=== PATIENT | male | born 1970 | race Caucasian/White ===

== ENCOUNTER 2017-12-12 19:10 | Inpatient (IN) | END 2017-12-27 11:35 | disposition home or self-care (01) | DRG 280 ==

== ENCOUNTER 2018-01-10 14:08 | Outpatient (CLI) | END 2018-01-10 15:48 | disposition home or self-care (01) ==

== ENCOUNTER 2018-01-24 13:59 | Outpatient (CLI) | END 2018-01-24 14:50 | disposition home or self-care (01) ==

== ENCOUNTER 2018-02-11 19:33 | Inpatient (IN) | END 2018-02-13 17:25 | disposition home or self-care (01) | DRG 291 ==

== ENCOUNTER 2018-02-27 22:31 | Inpatient (IN) | END 2018-03-06 17:32 | disposition home or self-care (01) | DRG 871 ==

== ENCOUNTER 2018-03-11 23:56 | Observation (INO) | END 2018-03-14 00:50 | disposition home or self-care (01) ==

== ENCOUNTER 2018-07-24 10:54 | Inpatient (IN) | END 2018-07-26 16:45 | disposition home or self-care (01) | DRG 314 ==

== ENCOUNTER 2018-09-18 06:36 | Day surgery (SDC) | payer OTHER ==
[~2018-09-18 06:36] MED LIST: ALLO100T PO; AMIT25TA9 PO; ASPI-817 PO; CARV6.2579 PO; EPO10ESRD SC; GABA100C14 PO; LANT3I SC; LISI10TA2 PO; OMEP40CA6 PO; PRAV20TA63 PO; TRAM50TA PO
[2018-09-18] MEDS ORDERED: PRAV20TA63 PO (07:38)
[2018-09-18] MEDS ORDERED: GABA100C14 PO (07:38)
[2018-09-18] MEDS ORDERED: CARV6.2579 PO (07:39)
[2018-09-18] MEDS ORDERED: CARSR60 PO (07:39)
[2018-09-18] MEDS ORDERED: ASPI81TA52 PO (07:40)
[2018-09-18] MEDS ORDERED: OMEP40CA6 PO (07:40)
[2018-09-18] MEDS ORDERED: ALLO100T PO (07:40)
[2018-09-18] MEDS ORDERED: INSU100I33 SC (07:41)
[2018-09-18] MEDS ORDERED: AMIT50TA3 PO (07:41)
[2018-09-18] MEDS ORDERED: INSU100I12 SQ (07:42)
[2018-09-18] MEDS ORDERED: TRAM50TA PO (07:43)
--- NOTE | 2018-09-18 07:44 | HPN ---
Date/Time of Note Date/Time of Note DATE: 09/18/18 TIME: 07:44 Interval H&P Admission Note Pt. seen H&P reviewed: No system changes MARK HOROWITZ MD Sep 18, 2018 07:44
[2018-09-18] MEDS ORDERED: INSULIN REGULAR, HUMAN 100 UNIT/1 ML 3ML VIAL SC ONE (08:30)
--- NOTE | 2018-09-19 19:59 | RADRPT ---
Vent Rate: 89 bpm RR Interval: [address] Interval: 170 msec QRS Duration: 112 msec QT Interval: 368 msec QTC Interval: 447 msec P-R-T [place]: 63 - 67 - 81 degrees Normal sinus rhythm Normal ECG Electronically Signed By: Geraldo Jaffe [id number]
== END 2018-09-18 09:30 | disposition home or self-care (01) ==
LOC: SDS 06:36
PROVIDERS: ATTEND Surgery
DX: I12.0 Hypertensive chronic kidney disease with stage 5 chronic kidney disease or end stage renal disease (principal); N18.6 End stage renal disease; E11.9 Type 2 diabetes mellitus without complications; Z53.8 Procedure and treatment not carried out for other reasons
CPT/HCPCS: 71045; 80053; 82962; 85025; 85610; 85730; 93005; J1815

== ENCOUNTER 2018-09-18 09:13 | Inpatient (IN) | payer OTHER ==
[2018-09-18] VITALS (12 sets, daily range): BP systolic 103–189; BP diastolic 76–118; PULSE 101–118; RESP 20; Ht 167.6 cm; Wt 73.0 kg
[~2018-09-18] VITALS: Ht 167.6 cm; Wt 73.0 kg
[2018-09-18] MEDS: GABAPENTIN 100 MG CAP PO SCH (01:30)
[2018-09-18] MEDS: AMITRIPTYLINE 50 MG TAB PO SCH (01:30)
[~2018-09-18 09:13] MED LIST changes: +AMIT50TA3 PO; +ASPI81TA52 PO; +CARSR60 PO; +INSU100I12 SQ; +INSU100I33 SC
[2018-09-18] MEDS ORDERED: SOD CHLORIDE 0.9% 730 ML IV ONE (10:00)
[2018-09-18] MEDS ORDERED: INSULIN LISPRO 100 UNIT/ML VIAL SC ONE (11:00)
[2018-09-18] MEDS ORDERED: ACETAMINOPHEN 325 MG TAB PO PRN (12:00)
[2018-09-18] MEDS ORDERED: ONDANSETRON 4 MG INJ IV PRN (12:00)
--- NOTE | 2018-09-18 14:23 | ERD ---
ER Documentation Chief Complaint Chief Complaint FROM SAME DAY SURGERY FOR HIGH BLOOD GLUCOSE HPI Patient is a 47-year-old male with hypertension and diabetes and dialysis who presents for high blood sugar. The patient was at same-day surgery for an AV fistula placement today but was found to have a sugar of greater than 600 to the procedure was not done. He was sent to the ER. He denies symptoms. He was told not to take his insulin today because of the procedure but he says that he did take it yesterday. He gets dialysis Sunday, Sunday, and Fridays and he had dialysis on Sunday. Upon review of old medical records the patient has multiple visits with admissions. ROS All systems reviewed and are negative except as per history of present illness. Medications Home Meds Reported Medications Tramadol Hcl* (Ultram*) 50 Mg Tablet, 50 MG PO Q6H PRN for PAIN, TAB 09/18/18 Insulin Lispro (Humalog Kwikpen U-100) 100 Unit/1 Ml Insuln.pen, 8 UNIT SQ AC B, EA 09/18/18 Insulin Glargine,Hum.rec.anlog (Basaglar Kwikpen U-100) 100 Unit/1 Ml Insuln.pen, 60 UNIT SC QHS, EA 09/18/18 Amitriptyline Hcl* (Amitriptyline Hcl*) 50 Mg Tablet, 50 MG PO QHS, #30 TAB 09/18/18 Omeprazole* (Omeprazole*) 40 Mg Capsule., 40 MG PO DAILY, #30 CAP 09/18/18 Allopurinol* (Allopurinol*) 100 Mg Tablet, 100 MG PO DAILY, TAB 09/18/18 Aspirin (Low Dose Aspirin) 81 Mg Tablet., 81 MG PO DAILY, #30 TAB 09/18/18 Carvedilol* (Carvedilol*) 6.25 Mg Tablet, 6.25 MG PO BID, #60 TAB 09/18/18 Diltiazem Hcl* (Cardizem SR*) 60 Mg Capsr, 60 MG PO Q12, #60 CAP 09/18/18 Pravastatin Sodium* (Pravastatin Sodium*) 20 Mg Tablet, 20 MG PO HS, TAB 09/18/18 Gabapentin* (Gabapentin*) 100 Mg Capsule, 100 MG PO TID, #90 CAP 09/18/18 Discontinued Reported Medications Allopurinol* (Allopurinol*) 100 Mg Tablet, 100 MG PO DAILY, TAB 12/12/17 Amitriptyline Hcl* (Amitriptyline Hcl*) 25 Mg Tablet, 50 MG PO QHS, #30 TAB 12/12/17 Omeprazole* (Omeprazole*) 40 Mg Capsule.dr, 40 MG PO DAILY, #30 CAP 12/12/17 Aspirin* (Aspirin* EC) 81 Mg Tablet.dr, 81 MG PO DAILY, TAB 12/12/17 Discontinued Scripts Insulin Glargine* (Lantus*) 100 Unit/Ml Soln, 22 UNIT SC DAILY for 30 Days, #1 VIAL Prov:GELACIOSHAYLA 07/26/18 Epoetin Aidan (Epogen) 10,000 Units/Ml Soln, 40995 UNITS SC MoWeFr@17 for 30 Days Prov:CALISTA FERRIS 03/13/18 Carvedilol* (Carvedilol*) 6.25 Mg Tablet, 6.25 MG PO BID for 30 Days, #60 TAB Prov:CALISTA FERRIS 03/13/18 Lisinopril* (Lisinopril*) 10 Mg Tablet, 10 MG PO DAILY for 30 Days, #30 TAB Prov:GAUDENCIO PORRAS MD 03/06/18 Tramadol Hcl* (Ultram*) 50 Mg Tablet, 50 MG PO Q6 PRN for PAIN, #14 TAB Prov:CALISTA FERRIS 02/13/18 Gabapentin* (Gabapentin*) 100 Mg Capsule, 100 MG PO BID, #90 CAP Prov:CALISTA FRERIS 02/13/18 Pravastatin Sodium* (Pravastatin Sodium*) 20 Mg Tablet, 20 MG PO HS for 30 Days, TAB Prov:HARRY ARSHAD MD 12/26/17 Allergies Allergies: Coded Allergies: No Known Allergy (Unverified , 09/18/18) PMhx/Soc History of Surgery: Yes (HEMODIALYSIS CATHETER, TENDON SX.) Anesthesia Reaction: No Hx 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 Disorder: No Hx Respiratory Disorders: No Hx Cardiac Disorders: Yes (HIGH CHOLESTEROL , HTN ) Hx Psychiatric Problems: No Hx Miscellaneous Medical Probl: Yes (DM , GOUT ) Hx Alcohol Use: No Hx Substance Use: No Hx Tobacco Use: No Smoking Status: Never smoker FmHx Family History: diabetes Physical Exam Vitals Vital Signs Date Temp Pulse Resp B/P (MAP) Pulse Ox O2 O2 Flow FiO2 Time Delivery Rate 09/18/18 98.1 92 17 164/96 98 Room Air 12:00 (118) 09/18/18 95 18 152/95 96 Room Air 10:20 (114) 09/18/18 98.1 92 18 180/106 99 09:21 (130) Physical Exam Const: No acute distress Head: Atraumatic Eyes: Normal Conjunctiva ENT: Normal External Ears, Nose and Mouth. Neck: Full range of motion. No meningismus. Resp: Clear to auscultation bilaterally Cardio: Regular rate and rhythm, no murmurs Abd: Soft, non tender, non distended. Normal bowel sounds Skin: No petechiae or rashes Back: No midline or flank tenderness Ext: No cyanosis, or edema Neur: Awake and alert Psych: Normal Mood and Affect Result Diagram: 09/18/18 1005 09/18/18 1004 Results 24 hrs Laboratory Tests Test 09/18/18 09:50 09/18/18 09:53 09/18/18 10:04 09/18/18 10:05 Bedside Glucose 414 mg/dL Blood Gas Blood venous Specimen Source Arterial Blood 09/18/2018 10:10: Date Drawn 52 AM Arterial Blood VENOUS LINE Gas Puncture Site Bradley Test N/A Venous Blood pH 7.336 Venous Blood 49.8 mmHG pCO2 (Temp Corrected) Venous Blood pO2 44.7 mmHG (Temp Corrected) Venous Blood 26.0 mmol/L HCO3 Venous Blood 81.6 mmHG Oxygen Saturation Venous Blood -0.4 mmol/L Base Excess Venous Blood 13.8 g/dl Total Hemoglobin Venous Blood 80.9 % Oxyhemoglobin Venous Blood 0.1 % Methemoglobin Carboxyhemoglobi 0.7 % n Blood Gas 37.0 C Temperature Blood Gas ROOM AIR Modality FiO2 21.0 % Blood Gas M.D. Notified Whom Blood Gas 09/18/2018 10:18: Notified Time 00 AM Sodium Level 133 mmol/L Potassium Level 4.0 mmol/L Chloride Level 98 mmol/L Carbon Dioxide 26 mmol/L Level Anion Gap 9 Blood Urea 43 mg/dl Nitrogen Creatinine 4.72 mg/dl Est Glomerular 13 mL/min Filtrat Rate mL/min Glucose Level 453 mg/dl Calcium Level 9.5 mg/dl Phosphorus Level 4.9 mg/dl Magnesium Level 1.9 mg/dl White Blood 8.5 10^3/ul Count Red Blood Count 3.95 10^6/ul Hemoglobin 12.4 g/dl Hematocrit 37.3 % Mean Corpuscular 94.4 fl Volume Mean Corpuscular 31.4 pg Hemoglobin Mean Corpuscular 33.2 g/dl Hemoglobin Ellen nt Red Cell 13.1 % Distribution Width Platelet Count 294 10^3/UL Mean Platelet 11.5 fl Volume Immature 0.400 % Granulocytes % Neutrophils % 68.5 % Lymphocytes % 18.0 % Monocytes % 5.9 % Eosinophils % 6.5 % Basophils % 0.7 % Nucleated Red 0.0 /100WBC Blood Cells % Immature 0.030 10^3/ul Granulocytes # Neutrophils # 5.9 10^3/ul Lymphocytes # 1.5 10^3/ul Monocytes # 0.5 10^3/ul Eosinophils # 0.6 10^3/ul Basophils # 0.1 10^3/ul Nucleated Red 0.0 10^3/ul Blood Cells # Test 09/18/18 11:29 09/18/18 14:12 Bedside Glucose 242 mg/dL 102 mg/dL Current Medications Medications Dose Sig/Estrada Start Time Status Last (Trade) Ordered Route PRN Stop Time Admin Dose Reason Admin Sodium 730 ml @ ONCE ONCE 09/18/18 DC 09/18/18 Chloride 730 mls/hr IV 10:00 10:09 09/18/18 10:59 Insulin 20 unit ONCE ONCE 09/18/18 DC Human SC 11:00 Lispro 09/18/18 11:31 (Humalog) Ondansetron 4 mg BRIDGE ORDER 09/18/18 HCl (Zofran PRN IV 12:00 Inj) vomiting 09/19/18 11:59 650 mg ER BRIDGE 09/18/18 Acetaminophen PRN PO pain 12:00 (Tylenol 09/19/18 11:59 Tab) Procedures/MDM Patient is a 47-year-old male who presents with hyperglycemia. There is no signs of diabetic ketoacidosis at this time. The patient was given a fluid bolus. The patient has had improved sugar in the emergency department. He will need admission so that he can get his AV fistula placed. I spoke with Dr. Arshad who will admit the patient to a medical surgical bed. Departure Diagnosis: Primary Impression: Hyperglycemia Condition: YUSEF Mills MD Sep 18, 2018 14:23
[2018-09-18] MEDS ORDERED: traMADol 50 MG TAB PO PRN (15:00)
--- NOTE | 2018-09-18 15:02 | HP ---
GELACIOSHAYLA 09/18/18 1502: Date/Time of Note Date/Time of Note DATE: 09/18/18 TIME: 14:55 Assessment/Plan VTE Prophylaxis Pharmacological prophylaxis: NA/contraindicated Pharm contraindication: surgical contra Assessment/Plan Hospital Course 1. Diabetes mellitus, uncontrolled. BS was around 500. then in ER was stabilized and down to 260s. 2. Hypochromic anemia 3. Hypertension. 4. End-stage renal disease on hemodialysis Sunday, Sunday, Sunday. 5. Nonischemic cardiomyopathy. 6. History of gout. 7. Dyslipidemia. 8. Overweight 9. Hx of diabetic nephropathy and neuropathy. 10. right I toe nonhealing wound Assessment/Plan -spoke to [facility] staff, pt is scheduled on Fr around [address] Pina -renal diet -hypoglycemic control -medsurg -c/w HD PermCath placement, one today - The patient will be resumed on blood pressure medicines and insulin. -The patient was explained about compliance. -DVT prophylaxis SCD bilaterally -GI prophylaxis Protonix -Arterial US Result Diagram: 09/18/18 1005 09/18/18 1004 Results 24hrs Laboratory Tests Test 09/18/18 09:50 09/18/18 09:53 09/18/18 10:04 09/18/18 10:05 Bedside Glucose 414 *H Blood Gas Blood venous Specimen Source Arterial Blood 09/18/2018 10:10: Date Drawn 52 AM Arterial Blood VENOUS LINE Gas Puncture Site Bradley Test N/A Venous Blood pH 7.336 Venous Blood pCO2 49.8 H (Temp Corrected) Venous Blood pO2 44.7 H (Temp Corrected) Venous Blood HCO3 26.0 Venous Blood 81.6 H Oxygen Saturation Venous Blood Base -0.4 Excess Venous Blood 13.8 Total Hemoglobin Venous Blood 80.9 Oxyhemoglobin Venous Blood 0.1 Methemoglobin Carboxyhemoglobin 0.7 Blood Gas 37.0 Temperature Blood Gas ROOM AIR Modality FiO2 21.0 Blood Gas M.D. Notified Whom Blood Gas 09/18/2018 10:18: Notified Time 00 AM Sodium Level 133 L Potassium Level 4.0 Chloride Level 98 Carbon Dioxide 26 Level Anion Gap 9 Blood Urea 43 H Nitrogen Creatinine 4.72 H Est Glomerular 13 L Filtrat Rate mL/min Glucose Level 453 #*H Calcium Level 9.5 Phosphorus Level 4.9 Magnesium Level 1.9 White Blood Count 8.5 Red Blood Count 3.95 L Hemoglobin 12.4 L Hematocrit 37.3 L Mean Corpuscular 94.4 Volume Mean Corpuscular 31.4 Hemoglobin Mean Corpuscular 33.2 Hemoglobin Concen t Red Cell 13.1 Distribution Width Platelet Count 294 Mean Platelet 11.5 H Volume Immature 0.400 Granulocytes % Neutrophils % 68.5 Lymphocytes % 18.0 Monocytes % 5.9 Eosinophils % 6.5 Basophils % 0.7 Nucleated Red 0.0 Blood Cells % Immature 0.030 Granulocytes # Neutrophils # 5.9 Lymphocytes # 1.5 Monocytes # 0.5 Eosinophils # 0.6 H Basophils # 0.1 Nucleated Red 0.0 Blood Cells # Test 09/18/18 11:29 09/18/18 14:12 09/18/18 14:24 Bedside Glucose 242 H 102 Urine Color STRAW Urine Clarity CLEAR Urine pH 7.0 Urine Specific 1.015 [place] Urine Ketones NEGATIVE Urine Nitrite NEGATIVE Urine Bilirubin NEGATIVE Urine NEGATIVE Urobilinogen Urine Leukocyte NEGATIVE Esterase Urine Microscopic 0 RBC Urine Microscopic 0 WBC Urine Hemoglobin NEGATIVE Urine Glucose 3+ H Urine Total 3+ H Protein HPI/ROS Admit Date/Time Admit Date/Time Sep 18, 2018 at 11:59 Hx of Present Illness This is a 47-year-old male with a past medical history of end-stage renal disease on hemodialysis that started on 11/2017, diabetes, high blood pressure, noncompliance, cardiomyopathy, diastolic dysfunction, EF of 20%, nonobstructive coronary artery disease, who was sent to short stay for fistula creation.Prior the procedure pt has elevated BS to 500 and was sent to ER for evaluation. The patient was admitted for further management. PAST SURGICAL HISTORY: PermCath placement. ROS Musculoskeletal: other (unhealing wound) PMH/Family/Social Past Medical History Medical History: diabetes, hypertension, renal disease Medications Current Medications Ondansetron HCl (Zofran Inj) 4 mg BRIDGE ORDER PRN IV vomiting; Start 09/18/18 at 12:00; Stop 09/19/18 at 11:59 Acetaminophen (Tylenol Tab) 650 mg ER BRIDGE PRN PO pain; Start 09/18/18 at 12:00; Stop 09/19/18 at 11:59 Coded Allergies: No Known Allergy (Unverified , 09/18/18) Past Surgical History Past Surgical Hx: appendectomy, endoscopy, other Family History Significant Family History: no pertinent family hx Social History Alcohol Use: none Smoking Status: Current some day smoker Drug Use: other (former IV drug user) Exam/Review of Systems Vital Signs Vitals Vital Signs Date Temp Pulse Resp B/P (MAP) Pulse Ox O2 O2 Flow FiO2 Time Delivery Rate 09/18/18 98.1 90 18 154/68 98 Room Air 14:27 (96) Exam Exam right chest Permcath Constitutional: alert, oriented Neck: supple Respiratory: clear to auscultation Cardiovascular: regular rate and rhythm Gastrointestinal: soft Musculoskeletal: other (right foot 1 toe unhealing wound) HARRY ARSHAD MD 09/19/18 0640: Assessment/Plan Assessment/Plan Assessment/Plan LILIANA ND EXMAINED WITH METAL FABRICATOR HELPER PT SAID WAS TOLD TO HOLD LANTUS DAY OF SURGERY FS>500 , SURGERY CANCELLED HD Result Diagram: 09/18/18 1005 09/18/18 1004 PMH/Family/Social Past Medical History Coded Allergies: No Known Allergy (Unverified , 09/18/18) SHAYLA BRIZUELA Sep 18, 2018 15:02 HARRY ARSHAD MD Sep 19, 2018 06:40
[2018-09-18] MEDS ORDERED: DEXTROSE 50% 50 ML SYRINGE IV PRN (16:00)
[2018-09-18] MEDS ORDERED: GLUCAGON 1 MG INJ IM PRN (16:00)
[2018-09-18] MEDS ORDERED: GLUCOSE GEL 15 GRAM TUBE BUCCAL PRN (16:00)
[2018-09-18] MEDS ORDERED: GLUCOSE GEL 15 GRAM TUBE PO PRN ×2 (16:00)
[2018-09-18] MEDS ORDERED: HEPARIN 1000 UNITS/ML 10 ML INJ CATHETER SCH ×2 (17:00→22:30)
[2018-09-18] MEDS ORDERED: INSULIN ASPART [NOVOLOG] 3 ML PEN SC SCH (17:00)
[2018-09-18] MEDS: INSULIN ASPART [NOVOLOG] 3 ML PEN SC SCH ×2 (18:07→23:03)
--- NOTE | 2018-09-18 18:36 | NUR ---
Patient is alert, awake and verbally responsive. Respiration are even and non labored. No acute distress or discomfort noted. Head to toe skin assessment done. Pt. has HD order today [id number] confirmation number. Stable condition. Will endorse accordingly.
--- NOTE | 2018-09-18 19:50 | NUR ---
During hourly rounding pt's BP was 177/103 HR 101; pt is asymptomatic and no signs of distress. Cardizem and Coreg was administered as scheduled. Will continue to monitor.
[2018-09-18] MEDS: DILTIAZEM (SR) 60 MG CAP PO SCH (19:53)
[2018-09-18] MEDS ORDERED: INSULIN GLARGINE [LANtus] 3 ML PEN SC SCH (21:00)
--- NOTE | 2018-09-18 21:45 | NUR ---
Pt started HD. RN informed Dialysis nurse that Coreg and Cardizem was administered for elevated BP. During Dialysis, molecular geneticist, informed RN that pt's BP was elevated.
[2018-09-18] MEDS: INSULIN GLARGINE [LANTus] (100 UNITS/ML) SYG SC SCH (23:02)
[2018-09-19] VITALS (8 sets, daily range): BP systolic 101–143; BP diastolic 59–89; PULSE 53–110; RESP 16–20
--- NOTE | 2018-09-19 00:40 | NUR ---
HD completed with output of 1893ml. BP 119/82 HR 102. No s/s of distress and pt denies any discomfort/pain.
[2018-09-19] MEDS: DILTIAZEM (SR) 60 MG CAP PO SCH ×3 (01:00→21:16)
[2018-09-19] MEDS: ACCU-CHEK XX SCH (02:00)
--- NOTE | 2018-09-19 02:07 | NUR ---
Patient treatment end 4 minutes early due to clotted dialyzer. Only able to return about 100 mL of blood. Patient VSS, no distress, no chest pain, no shortness of breath. Left voicemail to Bhavik Marquez MD at 0136. Total fluid removed 1892. Dressing changed, access port locked with heparin 2200 units/2.2 mL (AP) and 2300 units/2.3 mL (RICE DRIER). Capped and secured.
--- NOTE | 2018-09-19 02:50 | NUR ---
notified Dr Navarro of Blood sugar of 323. No signs of hyperglycemia. No signs of distress. No new orders received. Will continue to monitor
[2018-09-19] MEDS ORDERED: PANTOPRAZOLE 40 MG INJ IV SCH (06:00)
[2018-09-19] MEDS: INSULIN ASPART [NOVOLOG] 3 ML PEN SC SCH ×4 (08:43→21:15)
[2018-09-19] MEDS: GABAPENTIN 100 MG CAP PO SCH ×3 (08:51→21:15)
[2018-09-19] MEDS: ALLOPURINOL 100 MG TAB PO SCH (08:51)
--- NOTE | 2018-09-19 13:16 | NUR ---
Wound Care Consult: 47 year-old male with a past medical history of end-stage renal disease on hemodialysis that started on 11/2017, diabetes, high blood pressure, noncompliance, cardiomyopathy, diastolic dysfunction, EF of 20%, nonobstructive coronary artery disease, who was sent to short stay for fistula creation.Prior the procedure pt has elevated BS to 500 and was sent to ER for evaluation Wound care consulted for: Right great toe diabetic ulcer. Fissure and callous formation noted. Cleanse with NS, pat dry, apply Betadine ointment and open to air daily and as needed. Podiatry consult for debridement WOCN coordinated with unit RN regarding treatment recommendation Richard Yanez RN MSN WOCN CM
--- NOTE | 2018-09-19 15:19 | PN ---
Date/Time of Note Date/Time of Note DATE: 09/19/18 TIME: 15:17 Assessment/Plan VTE Prophylaxis Risk score (from Ns)>0 risk: 3 SCD applied (from Ns): Yes Pharmacological prophylaxis: NA/contraindicated Pharm contraindication: low risk/ambulating Lines/Catheters [facility] Saline Lock Assessment/Plan Hospital Course 47 y/ with . Diabetes mellitus, uncontrolled. BS was around 500. then in ER was stabilized and down to 260s. 2. Hypochromic anemia 3. Hypertension. 4. End-stage renal disease on hemodialysis Sunday, Sunday, Sunday. 5. Nonischemic cardiomyopathy. 6. History of gout. 7. Dyslipidemia. 8. Overweight 9. Hx of diabetic nephropathy and neuropathy. 10. right I toe nonhealing wound Assessment/Plan -spoke to [facility] staff, pt is scheduled on Fr around [address] Pina -renal diet - Hd tmw - The patient will be resumed on blood pressure medicines and insulin. -The patient was explained about compliance. -DVT prophylaxis SCD bilaterally -GI prophylaxis Protonix -Arterial US> distal dsease to be eval by Vascular if npo dec lasntus tonite and start some d51/2ns Result Diagram: 09/19/187 09/19/18 0457 Results 24hrs Laboratory Tests Test 09/18/18 17:38 09/18/18 22:58 09/19/18 02:37 09/19/18 04:57 Bedside Glucose 218 204 323 H White Blood Count 8.9 Red Blood Count 4.39 L Hemoglobin 13.7 L Hematocrit 41.2 L Mean Corpuscular 93.8 Volume Mean Corpuscular 31.2 Hemoglobin Mean Corpuscular 33.3 Hemoglobin Concent Red Cell 12.8 Distribution Width Platelet Count 308 Mean Platelet Volume 11.5 H Immature 0.200 Granulocytes % Neutrophils % 68.2 Lymphocytes % 19.1 Monocytes % 6.2 Eosinophils % 5.6 Basophils % 0.7 Nucleated Red Blood 0.0 Cells % Immature 0.020 Granulocytes # Neutrophils # 6.0 Lymphocytes # 1.7 Monocytes # 0.6 Eosinophils # 0.5 Basophils # 0.1 Nucleated Red Blood 0.0 Cells # Sodium Level 136 Potassium Level 4.0 Chloride Level 102 Carbon Dioxide Level 27 Anion Gap 7 Blood Urea Nitrogen 29 #H Creatinine 3.56 #H Est Glomerular 19 L Filtrat Rate mL/min Glucose Level 297 #H Hemoglobin A1c 10.7 H Calcium Level 9.4 Test 09/19/18 08:07 09/19/18 12:16 Bedside Glucose 180 178 Subjective 24 Hr Interval Summary Free Text/Dictation sugars improved OR tmw Exam/Review of Systems Exam Vitals Vital Signs Date Temp Pulse Resp B/P (MAP) Pulse Ox O2 O2 Flow FiO2 Time Delivery Rate 09/19/18 97.4 83 18 143/89 100 Room Air 14:25 (107) rightright chest Permcath Constitutional: alert, oriented Neck: supple Respiratory: clear to auscultation Cardiovascular: regular rate and rhythm Gastrointestinal: soft Musculoskeletal: other (right foot 1 toe unhealing wound) Intake and Output 09/18/18 09/18/18 09/19/18 1515:00 23:00 07:00 IntakeIntake Total 730 ml 150 ml OutputOutput Total 200 ml 2293 ml BalanceBalance 730 ml -200 ml -2143 ml right chest Permcath Constitutional: alert, oriented Neck: supple Respiratory: clear to auscultation Cardiovascular: regular rate and rhythm Gastrointestinal: soft Musculoskeletal: other (right foot 1 toe unhealing wound) Results Results 24hrs Laboratory Tests Test 09/18/18 17:38 09/18/18 22:58 09/19/18 02:37 09/19/18 04:57 Bedside Glucose 218 204 323 H White Blood Count 8.9 Red Blood Count 4.39 L Hemoglobin 13.7 L Hematocrit 41.2 L Mean Corpuscular 93.8 Volume Mean Corpuscular 31.2 Hemoglobin Mean Corpuscular 33.3 Hemoglobin Concent Red Cell 12.8 Distribution Width Platelet Count 308 Mean Platelet Volume 11.5 H Immature 0.200 Granulocytes % Neutrophils % 68.2 Lymphocytes % 19.1 Monocytes % 6.2 Eosinophils % 5.6 Basophils % 0.7 Nucleated Red Blood 0.0 Cells % Immature 0.020 Granulocytes # Neutrophils # 6.0 Lymphocytes # 1.7 Monocytes # 0.6 Eosinophils # 0.5 Basophils # 0.1 Nucleated Red Blood 0.0 Cells # Sodium Level 136 Potassium Level 4.0 Chloride Level 102 Carbon Dioxide Level 27 Anion Gap 7 Blood Urea Nitrogen 29 #H Creatinine 3.56 #H Est Glomerular 19 L Filtrat Rate mL/min Glucose Level 297 #H Hemoglobin A1c 10.7 H Calcium Level 9.4 Test 09/19/18 08:07 09/19/18 12:16 Bedside Glucose 180 178 HARRY ARSHAD MD Sep 19, 2018 15:19
[2018-09-19] MEDS ORDERED: HEPARIN 1000 UNITS/ML 10 ML INJ CATHETER SCH (15:30)
--- NOTE | 2018-09-19 17:35 | NUR ---
Patient is scheduled for HD in confirmation number [id number].
--- NOTE | 2018-09-19 18:48 | NUR ---
Alert, awake and verbally responsive. Respiration are even and non labored. Plan to have surgery tomorrow but currently no order at this this time. Will endorse accordingly.
[2018-09-19] MEDS: INSULIN GLARGINE [LANTus] (100 UNITS/ML) SYG SC SCH (21:13)
[2018-09-19] MEDS: AMITRIPTYLINE 50 MG TAB PO SCH (21:17)
[2018-09-20] VITALS (27 sets, daily range): BP systolic 91–162; BP diastolic 53–96; PULSE 76–107; RESP 15–19
[2018-09-20] MEDS: ACCU-CHEK XX SCH (02:00)
[2018-09-20] MEDS: DEXTROSE 5%-0.45% NACL 1,000 ML IV SCH ×2 (04:42→17:24)
[2018-09-20] MEDS: PANTOPRAZOLE (EC) 40 MG TAB PO SCH ×2 (06:00→07:26)
[2018-09-20] MEDS ORDERED: ETOMIDATE 20 MG INJ ONE (07:00)
[2018-09-20] MEDS ORDERED: CEFAZOLIN 1 GM INJ ONE (07:00)
[2018-09-20] MEDS: INSULIN ASPART [NOVOLOG] 3 ML PEN SC SCH ×4 (08:00→21:00)
[2018-09-20] MEDS: ALLOPURINOL 100 MG TAB PO SCH (08:31)
[2018-09-20] MEDS: GABAPENTIN 100 MG CAP PO SCH ×3 (08:31→22:16)
[2018-09-20] MEDS: DILTIAZEM (SR) 60 MG CAP PO SCH ×2 (08:35→22:17)
--- NOTE | 2018-09-20 08:47 | PN ---
Date/Time of Note Date/Time of Note DATE: 09/20/18 TIME: 08:44 Assessment/Plan VTE Prophylaxis Risk score (from Ns)>0 risk: 3 SCD applied (from Ns): Yes Pharmacological prophylaxis: NA/contraindicated Pharm contraindication: surgical contra Lines/Catheters IV [facility] Saline Lock Assessment/Plan Hospital Course 1. Diabetes mellitus, uncontrolled. BS was around 500. then in ER was stabilized and down to 260s. 2. Hypochromic anemia 3. Hypertension. 4. End-stage renal disease on hemodialysis Sunday, Sunday, Sunday. 5. Nonischemic cardiomyopathy. 6. History of gout. 7. Dyslipidemia. 8. Overweight 9. Hx of diabetic nephropathy and neuropathy. 10. right I toe nonhealing wound 2/2 decreased arterial flow , atherosclerotic changes in dorsalis pedis Assessment/Plan -fistula creation today around [address] Pina -renal diet - Hd today - The patient will be resumed on blood pressure medicines and insulin. -The patient was explained about compliance. -DVT prophylaxis SCD bilaterally -GI prophylaxis Protonix -Arterial US> distal dsease to be eval by Vascular -npo status, cw d51/2ns Result Diagram: 09/19/18 0457 09/20/18 0445 Results 24hrs Laboratory Tests Test 09/19/18 12:16 09/19/18 17:23 09/19/18 21:11 09/20/18 02:11 Bedside Glucose 178 219 271 H 304 H Test 09/20/18 04:45 09/20/18 07:48 Sodium Level 136 Potassium Level 4.2 Chloride Level 100 Carbon Dioxide Level 24 Anion Gap 12 Blood Urea Nitrogen 44 #H Creatinine 4.53 H Est Glomerular 14 L Filtrat Rate mL/min Glucose Level 340 H Calcium Level 9.8 Bedside Glucose 174 Subjective 24 Hr Interval Summary Constitutional: no complaints Exam/Review of Systems Exam Vitals Vital Signs Date Temp Pulse Resp B/P (MAP) Pulse Ox O2 O2 Flow FiO2 Time Delivery Rate 09/20/18 97.7 92 18 122/78 98 Room Air 07:45 (93) Intake and Output 09/19/18 09/19/18 09/20/18 1515:00 23:00 07:00 IntakeIntake Total 800 ml 400 ml BalanceBalance 800 ml 400 ml Constitutional: alert, oriented Cardiovascular: regular rate and rhythm Gastrointestinal: soft Musculoskeletal: nl extremities to inspection Skin: other (right foot wound) Additional Comments right chest permcath Results Results 24hrs Laboratory Tests Test 09/19/18 12:16 09/19/18 17:23 09/19/18 21:11 09/20/18 02:11 Bedside Glucose 178 219 271 H 304 H Test 09/20/18 04:45 09/20/18 07:48 Sodium Level 136 Potassium Level 4.2 Chloride Level 100 Carbon Dioxide Level 24 Anion Gap 12 Blood Urea Nitrogen 44 #H Creatinine 4.53 H Est Glomerular 14 L Filtrat Rate mL/min Glucose Level 340 H Calcium Level 9.8 Bedside Glucose 174 SHAYLA BRIZUELA Sep 20, 2018 08:46
--- NOTE | 2018-09-20 11:32 | NUR ---
Glycemic Management Referral: Thank you for the referral. R: Consider splitting up large dose of basal for better absorption; consider Lantus 30 units BID. Once diet resumed, consider a premeal of NovoLog 12 units. HbA1c 10.7% This patient is well known to me from previous admissions. Pt has had T1DM since age 10. During an admission in February 2018 pt declined to go to an talent agent, preferred his PCP. At that time pt's HbA1c was 9.5%. Reviewed some tips to assist with glucose control. Will attempt to follow up with pt at bedside.
[2018-09-20] MEDS: DEXTROSE 50% 50 ML SYRINGE IV PRN ×2 (11:41→11:46)
--- NOTE | 2018-09-20 11:48 | NUR ---
NUTRITION NOTE: Pt with PMH of Type 1DM since age 10; ESRD on HD, gout, diabetic R foot ulcer, h/o noncompliance. Pt is currently NPO for scheduled fistula creation surgery today. Prior to NPO, pt was reported to have PO intake 75-100% on renal diabetic diet. Noted A1C 10.7%. On lantus and novolog. Followed by community health educator, pt seen on 09/20. Pt with increased nutrient needs for wound healing and from HD. Will offer Prosource BID to promote wound healing. Rec to add daily Renavite.
--- NOTE | 2018-09-20 11:52 | NUR ---
Patient getting ready for procedure and patient's blood sugar reading 48. patient was given D50w. Charge nurse contacted Yarelis and gave report about patient's condition and patient was sent down for Av fistula creation procedure. Yarelis confirmed she will reassess patient once pt is brought down. will continue to monitor. Addendum: 09/20/18 at 1156 by RYANN GILMORE RN pt is hypoglycemic, asymptomatic. Patient states he is just tired, and with shoulder pain after D50w given. patient transferred self from pt's bed to transport bed, tolerated well.
--- NOTE | 2018-09-20 12:37 | PREAC ---
Date/Time of Note Date/Time of Note DATE: 09/20/18 TIME: 12:33 Anesthesia Eval and Record Evaluation Time Pre-Procedure Interview DATE: 09/20/18 TIME: 12:33 Age 47 Sex male NPO: 8 hrs Preoperative diagnosis ESRD Planned procedure AV fistula creation Past Medical History Past Medical History: Includes Cardio: HTN, Dyslipidemia Endo: Diabetes Neuro: Peripheral neuropathy (with sensation problems in the operative arm (burning sensation) motor intact ) Renal: ESRD on dialysis Surgery & Anesthesia Issues No known issue Meds Anticoagulation: No Beta Gaby within 24 hr: Yes Reason Beta Gaby not given: Pt. not on B-Gaby Reported Medications Tramadol Hcl* (Ultram*) 50 Mg Tablet, 50 MG PO Q6H PRN for PAIN, TAB 09/18/18 Insulin Lispro (Humalog Kwikpen U-100) 100 Unit/1 Ml Insuln.pen, 8 UNIT SQ AC B, EA 09/18/18 Insulin Glargine,Hum.rec.anlog (Basaglar Kwikpen U-100) 100 Unit/1 Ml Insuln.pen, 60 UNIT SC QHS, EA 09/18/18 Amitriptyline Hcl* (Amitriptyline Hcl*) 50 Mg Tablet, 50 MG PO QHS, #30 TAB 09/18/18 Omeprazole* (Omeprazole*) 40 Mg Capsule.dr, 40 MG PO DAILY, #30 CAP 09/18/18 Allopurinol* (Allopurinol*) 100 Mg Tablet, 100 MG PO DAILY, TAB 09/18/18 Aspirin (Low Dose Aspirin) 81 Mg Tablet.dr, 81 MG PO DAILY, #30 TAB 09/18/18 Carvedilol* (Carvedilol*) 6.25 Mg Tablet, 6.25 MG PO BID, #60 TAB 09/18/18 Diltiazem Hcl* (Cardizem SR*) 60 Mg Capsr, 60 MG PO Q12, #60 CAP 09/18/18 Pravastatin Sodium* (Pravastatin Sodium*) 20 Mg Tablet, 20 MG PO HS, TAB 09/18/18 Gabapentin* (Gabapentin*) 100 Mg Capsule, 100 MG PO TID, #90 CAP 09/18/18 Discontinued Reported Medications Allopurinol* (Allopurinol*) 100 Mg Tablet, 100 MG PO DAILY, TAB 12/12/17 Amitriptyline Hcl* (Amitriptyline Hcl*) 25 Mg Tablet, 50 MG PO QHS, #30 TAB 12/12/17 Omeprazole* (Omeprazole*) 40 Mg Capsule.dr, 40 MG PO DAILY, #30 CAP 12/12/17 Aspirin* (Aspirin* EC) 81 Mg Tablet.dr, 81 MG PO DAILY, TAB 12/12/17 Discontinued Scripts Insulin Glargine* (Lantus*) 100 Unit/Ml Soln, 22 UNIT SC DAILY for 30 Days, #1 VIAL Prov:SHAYLA BRIZUELA 07/26/18 Epoetin Aidan (Epogen) 10,000 Units/Ml Soln, 05892 UNITS SC MoWeFr@17 for 30 Days Prov:CALISTA FERRIS 03/13/18 Carvedilol* (Carvedilol*) 6.25 Mg Tablet, 6.25 MG PO BID for 30 Days, #60 TAB Prov:CALISTA FERRIS 03/13/18 Lisinopril* (Lisinopril*) 10 Mg Tablet, 10 MG PO DAILY for 30 Days, #30 TAB Prov:GAUDENCIO PORRAS MD 03/06/18 Tramadol Hcl* (Ultram*) 50 Mg Tablet, 50 MG PO Q6 PRN for PAIN, #14 TAB Prov:CALISTA FERRIS 02/13/18 Gabapentin* (Gabapentin*) 100 Mg Capsule, 100 MG PO BID, #90 CAP Prov:CALISTA FERRIS 02/13/18 Pravastatin Sodium* (Pravastatin Sodium*) 20 Mg Tablet, 20 MG PO HS for 30 Days, TAB Prov:HARRY ARSHAD MD 12/26/17 Current Medications Allopurinol (Zyloprim) 100 mg DAILY PO Last administered on 09/20/18at 08:31; Admin Dose 100 MG; Start 09/19/18 at 09:00 Amitriptyline HCl (Elavil) 50 mg QHS PO Last administered on 09/19/18at 21:17; Admin Dose 50 MG; Start 09/18/18 at 21:00 Carvedilol (Coreg) 6.25 mg BID PO Last administered on 09/20/18at 08:32; Admin Dose 6.25 MG; Start 09/18/18 at 15:00 Diltiazem HCl (Cardizem Sr) 60 mg Q12 PO Last administered on 09/20/18at 08:35; Admin Dose 60 MG; Start 09/18/18 at 16:00 Gabapentin (Neurontin) 100 mg TID PO Last administered on 09/20/18at 08:31; Admin Dose 100 MG; Start 09/18/18 at 21:00 Tramadol HCl (Ultram) 50 mg Q6H PRN PO PAIN LEVEL 6-10; Start 09/18/18 at 15:00 Diagnostic Test (Pha) (Accu-Chek) 1 ea 02 XX ; Start 09/19/18 at 02:00 Insulin Aspart (Novolog Insulin Pen) NOVOLOG *MODERATE* ALGORITHM WITH MEALS BEDTIME SC Last administered on 09/19/18at 21:15; Admin Dose 3 UNIT; Start 09/18/18 at 18:05 Miscellaneous Information 1 ea NOTE XX ; Start 09/18/18 at 16:00 Glucose (Glutose) 15 gm Q15M PRN PO DECREASED GLUCOSE; Start 09/18/18 at 16:00 Glucose (Glutose) 22.5 gm Q15M PRN PO DECREASED GLUCOSE; Start 09/18/18 at 16:00 Dextrose (D50w Syringe) 25 ml Q15M PRN IV DECREASED GLUCOSE Last administered on 09/20/18at 11:46; Admin Dose 25 ML; Start 09/18/18 at 16:00 Dextrose (D50w Syringe) 50 ml Q15M PRN IV DECREASED GLUCOSE; Start 09/18/18 at 16:00 Glucagon (Glucagen) 1 mg Q15M PRN IM DECREASED GLUCOSE; Start 09/18/18 at 16:00 Glucose (Glutose) 15 gm Q15M PRN BUCCAL DECREASED GLUCOSE; Start 09/18/18 at 16:00 Insulin Glargine (Lantus) 60 units HS SC Last administered on 09/19/18at 21:13; Admin Dose 60 UNITS; Start 09/18/18 at 21:00 Heparin Sodium (Porcine) (Heparin (1000 Units/ml)) 4,500 unit AFTER DIALYSIS CATHETER Last administered on 09/19/18at 01:24; Admin Dose 4,500 UNIT; Start 09/18/18 at 22:30 Pantoprazole (Protonix Tab) 40 mg DAILY@06 PO Last administered on 09/20/18at 07:26; Admin Dose 40 MG; Start 09/20/18 at 06:00 Dextrose/Sodium Chloride 1,000 ml @ 30 mls/hr Q24H IV Last administered on 09/20/18at 04:42; Admin Dose 30 MLS/HR; Start 09/20/18 at 05:00 Meds reviewed: Yes Allergies Coded Allergies: No Known Allergy (Unverified , 09/18/18) Allergies Reviewed: Yes Labs/Studies Labs Reviewed: Reviewed by anesthesiologist Result Diagram: 09/19/18 0457 09/20/18 0445 Laboratory Tests 09/20/18 04:45 test: N/A Pre-procedure Exam Last vitals Vital Signs Date Temp Pulse Resp B/P (MAP) Pulse Ox O2 O2 Flow FiO2 Time Delivery Rate 09/20/18 97.7 92 18 122/78 98 Room Air 07:45 (93) Airway: Adequate mouth opening, Adequate thyromental dist Mallampati: Mallampati III Teeth: Normal Lung: Normal Heart: Normal ASA Physical Status ASA physical status: 4 Emergency: None Pre-operative Attestations Prior to commencing anesthesia and surgery, the patient was re-evaluated, there was verification of: *The patient's identity *The results of appropriate recent lab work and preoperative vital signs *The above evaluation not changing prior to induction *Anesthetic plan, risk benefits, alternative and complications discussed with patient/family; questions answered; patient/family understands, accepts and wishes to proceed. VEE HARDEN DO Sep 20, 2018 12:37
[2018-09-20] MEDS ORDERED: HEPARIN 1000 UNITS/ML 10 ML INJ IRR ONE (13:00)
[2018-09-20] MEDS ORDERED: FENTAnyl 50 MCG/ML VIAL ONE (13:02)
[2018-09-20] MEDS ORDERED: MIDAZOLAM 1 MG/ML 2 ML INJ ONE (13:02)
[2018-09-20] MEDS ORDERED: ROPIVACAINE 0.5 % 30 ML VIAL ONE (13:02)
[2018-09-20] MEDS ORDERED: LIDOCAINE 2% (SDV) 5 ML INJ ONE (13:02)
[2018-09-20] MEDS ORDERED: HEPARIN 1000 UNITS/ML 10 ML INJ ONE ×2 (13:41→13:43)
[2018-09-20] MEDS ORDERED: LIDOCAINE 1% (MPF) 30 ML INJ ONE (13:41)
[2018-09-20] MEDS ORDERED: THROMBIN 5000 UNIT VIAL ONE (13:43)
[2018-09-20] MEDS ORDERED: GELATIN SIZE 100 SPONGE ONE (13:43)
[2018-09-20] MEDS ORDERED: PHENYLephrine (100 MCG/ML) 5ML SYG ONE (14:30)
--- NOTE | 2018-09-20 14:51 | SIPON ---
Date/Time of Note Date/Time of Note DATE: 09/20/18 TIME: 14:50 Operative Report Preoperative Diagnosis ESRD Postoperative Diagnosis same Operation/Procedure Performed creation L arm brachiocephalic AVF Surgeon see signature line assistant buyer ROSALINE Gonsales Anesthesia: general Estimated blood loss: minimal Transfusion Required none Specimen none Grafts/Implants none Complications none RADHA FUNG MD Sep 20, 2018 14:51
--- NOTE | 2018-09-20 14:58 | NUR ---
RECEIVED FROM OR [facility]IA [facility] S/P AV FISTULA CREATION. DERMABOND DRESSING DRY AND INTACT. IV INFUSING IN RT. AC # 20 ANGIOCATH.
--- NOTE | 2018-09-20 15:30 | NUR ---
REPORT GIVEN TO EMILY GARZON. TANSPORTED TO AT 1545 HRS. ACCOMPANIED BY TRANSPORT IN STABLE CONDITION. DERMABOND DRESSING DRY AND INTACT. BRUIT AND THRILL PRESENT. IV PATENT.
--- NOTE | 2018-09-20 15:41 | OPR ---
DATE OF OPERATION: 09/20/2018 PREOPERATIVE DIAGNOSIS: End-stage renal disease. POSTOPERATIVE DIAGNOSIS: End-stage renal disease. PROCEDURE PERFORMED: Creation of left arm brachiocephalic AV fistula. SURGEON: Radha Pina MD ANESTHESIA: LMA with block. ESTIMATED BLOOD LOSS: Minimal. COMPLICATIONS: No intraprocedural complications. INDICATIONS: A 47-year-old diabetic hypertensive gentleman with end-stage renal disease on dialysis via right IJ Perm-A-Cath. He has a good left arm cephalic vein from the elbow to the shoulder and a good radial pulse. We brought him in today for creation of left arm AV fistula. DESCRIPTION OF PROCEDURE: Patient was brought to the operating room and placed on the table in supin e position. I marked the left cephalic and brachial veins; the cephalic vein and the brachial artery at the elbow. Once anesthesia was induced, the arm was prepped and draped in the usual sterile fash ion. I made an incision across the antecubital crease. I carefully dissected out the cephalic vein and traced it down into the forearm, ligated distally with 3-0 silk tie and divided it after marking the anterior surface. I then cut the connective tissue layer overlying the brachial artery pulse, I dissected out the brachial artery, clamped it proximally and distally, made an 8 mm long anterior art eriotomy and then anastomosed the end of the cephalic vein to the side of the brachial artery using 6 -0 Prolene suture in a running standard vascular surgical fashion. I removed the clamps. There is a soft thrill, good hemostasis. There was a 1+ radial pulse. I then closed the skin incision in 2 la yers using an inner layer of 3-0 Vicryl and an outer layer of 4-0 Monocryl subcuticular suture. Ster ile dressing was applied. The patient was transferred to recovery room in stable condition, tolerate d the procedure well without any complications. Dictated By: RADHA COOPER/TRUONG Conf#: [id number] DID#: [id number] CC: LAYLA NEGRETE MD; RUDY ROACH MD;*EndCC*
--- NOTE | 2018-09-20 18:02 | PAC ---
Date/Time of Note Date/Time of Note DATE: 09/20/18 TIME: 18:02 Post-Anesthesia Notes Post-Anesthesia Note Last documented vital signs Vital Signs Date Temp Pulse Resp B/P (MAP) Pulse Ox O2 O2 Flow FiO2 Time Delivery Rate 09/20/18 78 15 151/95 99 Room Air 15:44 (113) 09/20/18 8.0 15:19 09/20/18 98.0 15:15 Activity: WNL Respiratory function: WNL Cardiovascular function: WNL Mental status: Baseline Pain reasonably controlled: Yes Hydration appropriate: Yes Nausea/Vomiting absent: Yes EVELYNE ELIAS Sep 20, 2018 18:02
--- NOTE | 2018-09-20 18:15 | NUR ---
patient is alert and oriented x4. denies pain and no shortness of breath noted. patient's blood sugar in the morning read 174 however no coverage was given due to patient on NPO. checked blood sugar again before going to procedure for AV fistula creation, and the reading was 48. D50w was given per protocol and report was given to Yarelis. Yarelis confirmed to assess patient once she receives patient. Read previous note for more information. patient is back on renal diet, tolerated well. patient is currently in dialysis. fall precaution in place, call light within reach. will endorse to power and recovery shift engineer nurse.
[2018-09-20] MEDS ORDERED: HEPARIN 1000 UNITS/ML 10 ML INJ CATHETER ONE (18:30)
[2018-09-20] MEDS ORDERED: HEPARIN 1000 UNITS/ML 10 ML INJ CATHETER SCH ×2 (19:30)
[2018-09-20] MEDS: INSULIN GLARGINE [LANTus] (100 UNITS/ML) SYG SC SCH (21:41)
[2018-09-20] MEDS: AMITRIPTYLINE 50 MG TAB PO SCH (22:16)
--- NOTE | 2018-09-20 23:00 | NUR ---
HD completed with output of 1.4 liters. BP 122/74 HR 95. No s/s of distress and pt denies any discomfort/pain.
--- NOTE | 2018-09-21 01:52 | NUR ---
Paged Dr Navarro of Blood sugar of 355 mg/dl . No signs of hyperglycemia. No signs of distress. Awaiting MD to call back . Will continue to monitor.
[2018-09-21] MEDS: ACCU-CHEK XX SCH (01:53)
[2018-09-21 02:00] VITALS: BP 119/58; PULSE 100; RESP 19
[2018-09-21] MEDS: PANTOPRAZOLE (EC) 40 MG TAB PO SCH (05:59)
[2018-09-21] MEDS: GABAPENTIN 100 MG CAP PO SCH ×2 (08:43→13:32)
[2018-09-21] MEDS: ALLOPURINOL 100 MG TAB PO SCH (08:44)
[2018-09-21] MEDS: INSULIN ASPART [NOVOLOG] 3 ML PEN SC SCH ×2 (08:47→12:00)
[2018-09-21] MEDS: DILTIAZEM (SR) 60 MG CAP PO SCH (08:53)
[2018-09-21 09:02] VITALS: BP 111/56; PULSE 91; RESP 18
--- NOTE | 2018-09-21 09:50 | PDOCDIS ---
Discharge Instructions DIAGNOSIS Discharge Diagnosis Uncontrolled DM, creation of AV fistula CONDITION [id number] Patient Condition: [id number] Stable ACTIVITY: [id number] Activity Restrictions: Tibed2h Slowly Increase Activity Rest between Activity Avoid heavy lifting FOLLOW UP/APPOINTMENTS Follow-up Plan HD 3 times a week SHAYLA BRIZUELA Sep 21, 2018 09:50
--- NOTE | 2018-09-21 10:00 | DS ---
Date/Time of Note Date/Time of Note DATE: 09/21/18 TIME: 10:00 Discharge Summary Admission/Discharge Info Admit Date/Time Sep 19, 2018 at 12:06 Discharge Date/Time Discharge Diagnosis Uncontrolled DM, creation of AV fistula Consults Dr Pina, surgeon Procedures left arm fistula creation Hx of Present Illness Hospital Course This is a 47-year-old male with a past medical history of end-stage renal disease on hemodialysis that started on 11/2017, diabetes, high blood pressure, noncompliance, cardiomyopathy, diastolic dysfunction, EF of 20%, nonobstructive coronary artery disease, who was sent to short stay for fistula creation.Prior the procedure pt has elevated BS to 500 and was sent to ER for evaluation. The patient was admitted for further management. PAST SURGICAL HISTORY: PermCath placement. Ds: 1. Diabetes mellitus, uncontrolled. BS was around 500. then in ER was stabilized and down to 260s. 2. Hypochromic anemia 3. Hypertension. 4. End-stage renal disease on hemodialysis Sunday, Sunday, Sunday. 5. Nonischemic cardiomyopathy. 6. History of gout. 7. Dyslipidemia. 8. Overweight 9. Hx of diabetic nephropathy and neuropathy. 10. right I toe nonhealing wound 2/2 decreased arterial flow , atherosclerotic changes in dorsalis pedis Patient BS was under control after admitting him. Usual doses, that pt wa at home worked for him. The reason for uncontrolled BS more likely is noncompliance. He went for fistula creation 09/20/[address] Pina. During hospitalization pt was on renal diet, HD was performed 3 times a week, last yesterday. In hospital we resumed on blood pressure medicines and insulin. The patient was explained about compliance. DVT prophylaxis was SCD bilaterally. GI prophylaxis was Protonix. Arterial US showed arterial distal disease that need to be evaluated by Vascular surgeon. Home Meds Reported Medications Tramadol Hcl* (Ultram*) 50 Mg Tablet, 50 MG PO Q6H PRN for PAIN, TAB 09/18/18 Insulin Lispro (Humalog Kwikpen U-100) 100 Unit/1 Ml Insuln.pen, 8 UNIT SQ AC B, EA 09/18/18 Insulin Glargine,Hum.rec.anlog (Basaglar Kwikpen U-100) 100 Unit/1 Ml Insuln.pen, 60 UNIT SC QHS, EA 09/18/18 Amitriptyline Hcl* (Amitriptyline Hcl*) 50 Mg Tablet, 50 MG PO QHS, #30 TAB 09/18/18 Omeprazole* (Omeprazole*) 40 Mg Capsule.dr, 40 MG PO DAILY, #30 CAP 09/18/18 Allopurinol* (Allopurinol*) 100 Mg Tablet, 100 MG PO DAILY, TAB 09/18/18 Aspirin (Low Dose Aspirin) 81 Mg Tablet.dr, 81 MG PO DAILY, #30 TAB 09/18/18 Carvedilol* (Carvedilol*) 6.25 Mg Tablet, 6.25 MG PO BID, #60 TAB 09/18/18 Diltiazem Hcl* (Cardizem SR*) 60 Mg Capsr, 60 MG PO Q12, #60 CAP 09/18/18 Pravastatin Sodium* (Pravastatin Sodium*) 20 Mg Tablet, 20 MG PO HS, TAB 09/18/18 Gabapentin* (Gabapentin*) 100 Mg Capsule, 100 MG PO TID, #90 CAP 09/18/18 Discontinued Reported Medications Allopurinol* (Allopurinol*) 100 Mg Tablet, 100 MG PO DAILY, TAB 12/12/17 Amitriptyline Hcl* (Amitriptyline Hcl*) 25 Mg Tablet, 50 MG PO QHS, #30 TAB 12/12/17 Omeprazole* (Omeprazole*) 40 Mg Capsule.dr, 40 MG PO DAILY, #30 CAP 12/12/17 Aspirin* (Aspirin* EC) 81 Mg Tablet.dr, 81 MG PO DAILY, TAB 12/12/17 Discontinued Scripts Insulin Glargine* (Lantus*) 100 Unit/Ml Soln, 22 UNIT SC DAILY for 30 Days, #1 VIAL Prov:SHAYLA BRIZUELA 07/26/18 Epoetin Aidan (Epogen) 10,000 Units/Ml Soln, 51796 UNITS SC MoWeFr@17 for 30 Days Prov:CALISTA FERRIS 03/13/18 Carvedilol* (Carvedilol*) 6.25 Mg Tablet, 6.25 MG PO BID for 30 Days, #60 TAB Prov:CALISTA FERRIS 03/13/18 Lisinopril* (Lisinopril*) 10 Mg Tablet, 10 MG PO DAILY for 30 Days, #30 TAB Prov:GAUDENCIO PORRAS MD 03/06/18 Tramadol Hcl* (Ultram*) 50 Mg Tablet, 50 MG PO Q6 PRN for PAIN, #14 TAB Prov:CALISTA FERRIS 02/13/18 Gabapentin* (Gabapentin*) 100 Mg Capsule, 100 MG PO BID, #90 CAP Prov:CALISTA FERRIS 02/13/18 Pravastatin Sodium* (Pravastatin Sodium*) 20 Mg Tablet, 20 MG PO HS for 30 Days, TAB Prov:HARRY ARSHAD MD 12/26/17 Follow-up Plan HD 3 times a week Primary Care Provider [facility] Pending Labs Laboratory Tests Test 09/20/18 11:35 09/20/18 12:08 09/20/18 15:30 09/20/18 16:54 Bedside 48 246 99 148 Glucose mg/dL (70-220) mg/dL (70-220) mg/dL (70-220) mg/dL (70-220) Test 09/20/18 21:32 09/21/18 01:52 09/21/18 08:04 Bedside 178 355 190 Glucose mg/dL (70-220) mg/dL (70-220) mg/dL (70-220) SHAYLA BRIZUELA Sep 21, 2018 10:00
--- NOTE | 2018-09-21 14:55 | NUR ---
patient is alert and oriented x4. denies pain and no shortness of breath noted. patient's blood sugar 190 before meals in the morning and coverage was given. afternoon blood sugar reading 126 no coverage given. patient was discharged home with taxi voucher upon speaking with charge nurse regarding his transportation issue. vital signs remained stable during this shift, remained afebrie. discahrge documents given and signed by patient. patient's belongings with patient. called security for a lost item back in june and told patient security does not have it and might be lost. patient understood and was ok with it. Iv access removed, no bleeding noted. fall precaution in place, call light within reach. will endorse to slot shift supervisor nurse.
== END 2018-09-21 14:15 | disposition home or self-care (01) | DRG 673 ==
LOC: E/R 09:13 → PP2 11:59 → EDBEDREQ 12:41 → OBSVTOIN 09-19 12:06
PROVIDERS: ADMIT Internal Medicine Cardiovascular Disease; ATTEND Internal Medicine
PROC: 5A1D70Z Performance of Urinary Filtration, Intermittent, Less than 6 Hours Per Day (ICD-10-PCS; 2018-09-18)
PROC: 5A1D70Z Performance of Urinary Filtration, Intermittent, Less than 6 Hours Per Day (ICD-10-PCS; 2018-09-19)
PROC: 03180ZF Bypass Left Brachial Artery to Lower Arm Vein, Open Approach (ICD-10-PCS; principal; 2018-09-20 12:00)
DX: I12.0 Hypertensive chronic kidney disease with stage 5 chronic kidney disease or end stage renal disease (principal); N18.6 End stage renal disease; I42.9 Cardiomyopathy, unspecified; E11.65 Type 2 diabetes mellitus with hyperglycemia; E11.22 Type 2 diabetes mellitus with diabetic chronic kidney disease; E11.40 Type 2 diabetes mellitus with diabetic neuropathy, unspecified; E78.5 Hyperlipidemia, unspecified; E11.21 Type 2 diabetes mellitus with diabetic nephropathy; M1A.9XX0 Chronic gout, unspecified, without tophus (tophi); I70.208 Unspecified atherosclerosis of native arteries of extremities, other extremity; D50.9 Iron deficiency anemia, unspecified; Z99.2 Dependence on renal dialysis; Z79.4 Long term (current) use of insulin
CPT/HCPCS: 36415; 80048; 81001; 82803; 82962; 83036; 83735; 84100; 85025; 90935; 93922; 96360; G0378; C9113; J0690; J1644; J1815; J2250; J2370; J2795; J3010; J7030; J7042

== ENCOUNTER 2018-11-18 09:23 | Emergency (ER) | payer OTHER ==
[~2018-11-18] VITALS: Ht 175.3 cm; Wt 77.3 kg
[~2018-11-18 09:23] MED LIST changes: -AMIT25TA9 PO; -ASPI-817 PO; -EPO10ESRD SC; -LANT3I SC; -LISI10TA2 PO
[2018-11-18 09:34] VITALS: Ht 175.3 cm; Wt 77.3 kg
--- NOTE | 2018-11-18 09:36 | ERD ---
ER Documentation Chief Complaint Chief Complaint ALOC/Shaking/Hypoglycemia ROS All systems reviewed and are negative except as per history of present illness. Medications Home Meds Reported Medications Amitriptyline Hcl* (Amitriptyline Hcl*) 25 Mg Tablet, 25 MG PO QHS, #30 TAB 11/18/18 Tramadol Hcl* (Ultram*) 50 Mg Tablet, 50 MG PO Q6H PRN for PAIN, TAB 09/18/18 Insulin Glargine,Hum.rec.anlog (Basaglar Kwikpen U-100) 100 Unit/1 Ml Insuln.pen, 60 UNIT SC QHS, EA 09/18/18 Omeprazole* (Omeprazole*) 40 Mg Capsule.dr, 40 MG PO DAILY, #30 CAP 09/18/18 Allopurinol* (Allopurinol*) 100 Mg Tablet, 100 MG PO DAILY, TAB 09/18/18 Aspirin (Low Dose Aspirin) 81 Mg Tablet.dr, 81 MG PO DAILY, #30 TAB 09/18/18 Carvedilol* (Carvedilol*) 6.25 Mg Tablet, 6.25 MG PO BID, #60 TAB 09/18/18 Diltiazem Hcl* (Cardizem SR*) 60 Mg Capsr, 60 MG PO Q12, #60 CAP 09/18/18 Pravastatin Sodium* (Pravastatin Sodium*) 20 Mg Tablet, 20 MG PO HS, TAB 09/18/18 Gabapentin* (Gabapentin*) 100 Mg Capsule, 100 MG PO TID, #90 CAP 09/18/18 Discontinued Reported Medications Insulin Lispro (Humalog Kwikpen U-100) 100 Unit/1 Ml Insuln.pen, 8 UNIT SQ AC B, EA 09/18/18 Amitriptyline Hcl* (Amitriptyline Hcl*) 50 Mg Tablet, 50 MG PO QHS, #30 TAB 09/18/18 Allergies Allergies: Coded Allergies: No Known Allergy (Unverified , 09/18/18) PMhx/Soc Anesthesia Reaction: No Hx 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 Disorder: Yes (neuropathy) Hx Respiratory Disorders: No Hx Cardiac Disorders: Yes (CHF,Hypertension, high cholesterol) Hx Psychiatric Problems: No (depression) Hx Miscellaneous Medical Probl: No Hx Alcohol Use: No Hx Substance Use: No Hx Tobacco Use: No FmHx Unknown Physical Exam Vitals Vital Signs Date Temp Pulse Resp B/P (MAP) Pulse Ox O2 O2 Flow FiO2 Time Delivery Rate 11/18/18 99 18 135/83 100 Nasal 2.0 10:30 (100) Cannula 11/18/18 98.0 103 8 159/86 98 09:34 (110) Physical Exam Const: Severe distress Head: Atraumatic Eyes: Normal Conjunctiva ENT: Normal External Ears, Nose and Mouth. Neck: Full range of motion. Nontender. No meningismus. Resp: Breath sounds diminished at the bases with crackles but no rhonchi or wheezes. Cardio: Regular rate and rhythm, no murmurs Chest Wall: Dialysis catheter right upper chest wall. No erythema, induration or drainage Abd: Soft, non tender, non distended. Normal bowel sounds Skin: No petechiae or rashes Back: No midline or flank tenderness Ext: No cyanosis, or edema Neur: GCS 2/5/2 Result Diagram: 11/18/1838 11/18/1838 Results 24 hrs Laboratory Tests Test 11/18/18 09:27 11/18/18 09:38 11/18/18 09:57 11/18/18 10:40 Bedside Glucose 41 mg/dL 193 mg/dL 124 mg/dL White Blood Count 13.5 10^3/ul Red Blood Count 4.27 10^6/ul Hemoglobin 13.7 g/dl Hematocrit 43.5 % Mean Corpuscular 101.9 fl Volume Mean Corpuscular 32.1 pg Hemoglobin Mean Corpuscular 31.5 g/dl Hemoglobin Concent Red Cell 15.3 % Distribution Width Platelet Count 342 10^3/UL Mean Platelet 11.7 fl Volume Immature 0.700 % Granulocytes % Neutrophils % 74.8 % Lymphocytes % 11.7 % Monocytes % 7.2 % Eosinophils % 5.1 % Basophils % 0.5 % Nucleated Red Blood 0.0 /100WBC Cells % Immature 0.090 10^3/ul Granulocytes # Neutrophils # 10.1 10^3/ul Lymphocytes # 1.6 10^3/ul Monocytes # 1.0 10^3/ul Eosinophils # 0.7 10^3/ul Basophils # 0.1 10^3/ul Nucleated Red Blood 0.0 10^3/ul Cells # Sodium Level 140 mmol/L Potassium Level 3.8 mmol/L Chloride Level 101 mmol/L Carbon Dioxide 29 mmol/L Level Anion Gap 10 Blood Urea Nitrogen 21 mg/dl Creatinine 3.25 mg/dl Est Glomerular 21 mL/min Filtrat Rate mL/min Glucose Level 26 mg/dl Calcium Level 9.1 mg/dl Test 11/18/18 12:03 Bedside Glucose 48 mg/dL Current Medications Medications Dose Sig/Estrada Start Time Status Last (Trade) Ordered Route PRN Stop Time Admin Dose Reason Admin Dextrose 100 ml ONCE STAT 11/18/18 DC 11/18/18 (D50w IV 09:37 09:39 Syringe) 11/18/18 09:39 Dextrose 50 ml ONCE ONCE 11/18/18 (D50w IV 12:30 Syringe) 11/18/18 12:31 Dextrose 1,000 ml @ [id number] 11/18/18 60 mls/hr STAT IV 12:10 11/19/18 04:49 Procedures/MDM DOCUMENTS REVIEWED: ED nurse, prior ED, EMS, prior records LAB INTERPRETATION: [ ] EKG: Time: [ ] My Interpretation IMAGING: [ ] ED COURSE: [] REEXAMINATION/REEVALUATION: Time: 10:29. Accu-Chek 190 the patient is arousable but still lethargic. Time: 12:07. Accu-Chek down to 47. D50 1 amp and a D10 drip will be initiated. MEDICAL DECISION MAKING: [] Admit to telemetry for further evaluation and management. PATIENT CARE TRANSITIONED: Time: 12:18, Dr. Phan. Departure Diagnosis: Primary Impression: Acute encephalopathy Additional Impressions: Hypoglycemia End stage renal disease on dialysis Condition: Serious ASHLEY CUELLO MD Nov 18, 2018 09:36
[2018-11-18] MEDS ORDERED: DEXTROSE 50% 50 ML SYRINGE IV STA (09:37)
[2018-11-18] MEDS ORDERED: AMIT25TA9 PO (11:24)
[2018-11-18] MEDS ORDERED: DEXTROSE 10% 1,000 ML IV STA (12:10)
[2018-11-18] MEDS ORDERED: DEXTROSE 50% 50 ML SYRINGE IV ONE (12:30)
[2018-11-18] MEDS ORDERED: ACETAMINOPHEN 325 MG TAB PO PRN (12:30)
[2018-11-18] MEDS ORDERED: ONDANSETRON 4 MG INJ IV PRN (12:30)
[2018-11-18 14:35] VITALS: BP 142/91; PULSE 98; RESP 20
--- NOTE | 2018-11-18 20:17 | EN ---
Date/Time of Note Date/Time of Note DATE: 11/18/18 TIME: 20:16 Event Note Medicine Medicine Event Note patient was to be admitted under my service for management of hypoglycemia but chose to leave against medical advice prior to my evaluation GERARDO TREADWELL Nov 18, 2018 20:17
== END 2018-11-18 14:45 | disposition left against medical advice (07) ==
LOC: E/R 09:23 → CANRESERV 14:03 → E/R 14:45 → CANBEDREQ 18:26
DX: G93.40 Encephalopathy, unspecified (principal); I13.2 Hypertensive heart and chronic kidney disease with heart failure and with stage 5 chronic kidney disease, or end stage renal disease; I50.9 Heart failure, unspecified; N18.6 End stage renal disease; Z79.4 Long term (current) use of insulin; Z99.2 Dependence on renal dialysis; Z79.82 Long term (current) use of aspirin
CPT/HCPCS: 36415; 70450; 71045; 80048; 82962; 85025; 93005; 96374; 96376; Z7502; Z7610

== ENCOUNTER 2019-01-14 07:23 | Day surgery (SDC) | payer OTHER ==
[2019-01-14] VITALS (10 sets, daily range): BP systolic 119–157; BP diastolic 66–88; PULSE 88–92; RESP 14–17; Ht 167.6 cm; Wt 72.6 kg
[~2019-01-14] VITALS: Ht 167.6 cm; Wt 72.6 kg
[~2019-01-14 07:23] MED LIST changes: +AMIT25TA9 PO; -AMIT50TA3 PO; -INSU100I12 SQ
[2019-01-14] MEDS ORDERED: SOD CHLORIDE 0.9% 1,000 ML IV SCH (08:30)
[2019-01-14] MEDS ORDERED: INSU100C SQ (08:42)
--- NOTE | 2019-01-14 09:33 | SIPON ---
Date/Time of Note Date/Time of Note DATE: 01/14/19 TIME: 09:32 Operative Report Preoperative Diagnosis ESRD Postoperative Diagnosis Same Operation/Procedure Performed Left fistulogram Surgeon see signature line welder assistant None Anesthesia: other (Local) Estimated blood loss: minimal Transfusion Required none Specimen None Grafts/Implants none Complications none MARK HOROWITZ MD January 14, 2019 09:33
[2019-01-14] MEDS ORDERED: LIDOCAINE 1% (MDV) 20 ML INJ ONE (09:36)
[2019-01-14] MEDS ORDERED: IODIXANOL LOCM 100 ML BTL ONE (09:36)
[2019-01-14] MEDS ORDERED: HEPARIN 1000 UNITS/NS (A-LINE) 1,000 ML ONE (09:36)
[2019-01-14] MEDS ORDERED: HUMALOG INSULIN SC SCH (11:30)
--- NOTE | 2019-01-14 19:50 | OPR ---
DATE OF OPERATION: 01/14/2019 PREOPERATIVE DIAGNOSIS: End-stage renal disease. POSTOPERATIVE DIAGNOSIS: End-stage renal disease. PROCEDURE: Left fistulogram. SURGEON: Serjio Carreno MD COMPLICATIONS: None. ANESTHESIA: Local infiltration with 1% lidocaine. INDICATION OF THE PROCEDURE: The patient is a 48-year-old male with end-stage renal disease who unde rwent construction of left brachiocephalic AV fistula with slow maturation of the fistula and transit ion of the flow seen proximally. The patient was consented for the above-mentioned procedure. Risks and benefits discussed with him. He understood, agreed to proceed. DESCRIPTION OF PROCEDURE: The patient was brought to the catheterization lab after obtaining informe d consent, placed in supine position on the fluoroscopy table. Left upper extremity was cleaned, pre pped and draped in the usual sterile fashion. Local anesthetic was used to infiltrate the skin and s ubcutaneous tissue along the course of the left AV fistula. Micropuncture stick needle was inserted in a retrograde fashion into the AV fistula. Microwire was placed down the needle. Needle was then removed. A micropuncture set sheath was introduced over the wire. A fistulogram was done to identif y patent left brachiocephalic AV fistula with multiple side branches. No evidence of stenosis, paten t central veins. There was no evidence of stenosis. Patent arterial inflow anastomosis with no sign ificant disease. The micropuncture sheath was removed. Bleeding from the puncture site was controll ed using manual pressure. Dictated By: SERJIO GOODWIN/TRUONG Conf#: [id number] DID#: [id number]
== END 2019-01-14 11:35 | disposition home or self-care (01) ==
LOC: SDS 07:23 → CCL 07:23
PROVIDERS: ATTEND Surgery
DX: I12.0 Hypertensive chronic kidney disease with stage 5 chronic kidney disease or end stage renal disease (principal); N18.6 End stage renal disease; E11.9 Type 2 diabetes mellitus without complications
CPT/HCPCS: 36901; 82962; 84132; J1644; Q9967; Z7610

== ENCOUNTER 2019-02-10 05:00 | Inpatient (IN) | payer MEDICARE, OTHER ==
[~2019-02-10] VITALS: Ht 162.6 cm; Wt 72.7 kg
[2019-02-10] VITALS (28 sets, daily range): BP systolic 106–166; BP diastolic 44–99; PULSE 95–107; RESP 12–27; Ht 162.6 cm; Wt 72.7 kg
[~2019-02-10 05:00] MED LIST changes: -CARSR60 PO; +INSU100C SQ; -INSU100I33 SC; -PRAV20TA63 PO
[2019-02-10] MEDS ORDERED: ONDANSETRON 4 MG INJ IV STA (05:28)
[2019-02-10] MEDS ORDERED: CA CHLORIDE 10% 10 ML SYRINGE IV STA (05:28)
[2019-02-10] MEDS ORDERED: SOD CHLORIDE 0.9% 650 ML IV ONE (05:30)
[2019-02-10] MEDS ORDERED: NA BICARBONATE 8.4% 50 ML SYG IV STA (05:51)
[2019-02-10] MEDS ORDERED: ALBUTEROL 0.5% (NEB) 2.5 MG/0.5 ML AMP INH STA (05:51)
[2019-02-10] MEDS ORDERED: INSULIN REGULAR, HUMAN 100 UNIT/1 ML 3ML VIAL IVP STA ×2 (05:51→07:31)
[2019-02-10] MEDS ORDERED: DEXTROSE 50% 50 ML SYRINGE IV PRN ×8 (06:00→18:30)
[2019-02-10] MEDS: SODIUM POLYSTYRENE 15 GM KIT (POWDER + SORBITOL) PO STA ×2 (06:07→06:16)
[2019-02-10] MEDS ORDERED: DEXTROSE 10%/0.45% NACL 1,000 ML IV SCH (06:20)
[2019-02-10] MEDS ORDERED: SOD CHLORIDE 0.9% 1,000 ML IV SCH ×2 (06:20→09:00)
[2019-02-10] MEDS ORDERED: D10/0.45% NACL + KCL 30 MEQ 1,000 ML IV SCH (06:20)
[2019-02-10] MEDS ORDERED: D10/0.45% NACL + KCL 40 MEQ 1,000 ML IV SCH (06:20)
[2019-02-10] MEDS ORDERED: NS + KCL 30 MEQ 1,000 ML IV SCH (06:20)
[2019-02-10] MEDS ORDERED: NS + KCL 40 MEQ 1,000 ML IV SCH (06:20)
[2019-02-10] MEDS ORDERED: ACETAMINOPHEN 325 MG TAB PO PRN (06:30)
[2019-02-10] MEDS ORDERED: ONDANSETRON 4 MG INJ IV PRN ×2 (06:30→07:30)
[2019-02-10] MEDS ORDERED: LACTATED RINGER'S 650 ML IV ONE (06:30)
[2019-02-10] MEDS ORDERED: INSULIN REGULAR, HUMAN 100 UNIT in SOD CHLORIDE 0.9% 100 ML IV SCH ×2 (06:30)
[2019-02-10] MEDS ORDERED: ACETAMINOPHEN 650MG/20.3ML CUP PO PRN (07:30)
[2019-02-10] MEDS ORDERED: NA BICARBONATE 8.4% 50 ML SYG IV ONE (08:00)
[2019-02-10] MEDS ORDERED: CA CHLORIDE 10% 10 ML SYRINGE IV ONE (08:00)
[2019-02-10] MEDS ORDERED: INSULIN HUMAN REGULAR 100 UNIT in SOD CHLORIDE 0.9% 99 ML IV SCH (08:00)
[2019-02-10] MEDS ORDERED: SOD CHLORIDE 0.9% 500 ML IV ONE ×2 (08:00→09:00)
[2019-02-10] MEDS: ACCU-CHEK XX SCH ×12 (08:09→19:08)
--- NOTE | 2019-02-10 08:14 | ERD ---
ER Documentation Chief Complaint Chief Complaint BIB RA FROM DIALYSIS CENTER HPI This is a 48-year-old male with a past medical history of hypertension, diabetes, diabetic neuropathy, end-stage renal disease status post left arm fist yohana and right permacatheter placement on dialysis Sunday/Sunday/Sunday who is presenting from outside the dialysis center with generalized weakness and feeling unwell. The patient reportedly made at his dialysis center, but felt too weak and was unable to walk himself into the center. He was found outside and was very confused. The patient is usually alert and oriented x3 but he is currently only oriented x1. The patient feels generally weak. History and physical is limited secondary to patient's altered mentation. ROS Limited secondary to altered mental status Medications Home Meds Reported Medications Insulin Lispro (Humalog) 100 Unit/1 Ml Cartridge, 100 UNIT SQ PUMP, EA PT HAS PUMP 01/14/19 Amitriptyline Hcl* (Amitriptyline Hcl*) 25 Mg Tablet, 25 MG PO QHS, #30 TAB 11/18/18 Tramadol Hcl* (Ultram*) 50 Mg Tablet, 50 MG PO Q6H PRN for PAIN, TAB 09/18/18 Omeprazole* (Omeprazole*) 40 Mg Capsule.dr, 40 MG PO DAILY, #30 CAP 09/18/18 Allopurinol* (Allopurinol*) 100 Mg Tablet, 100 MG PO DAILY, TAB 09/18/18 Aspirin (Low Dose Aspirin) 81 Mg Tablet.dr, 81 MG PO DAILY, #30 TAB 09/18/18 Carvedilol* (Carvedilol*) 6.25 Mg Tablet, 6.25 MG PO BID, #60 TAB 09/18/18 Gabapentin* (Gabapentin*) 100 Mg Capsule, 100 MG PO TID, #90 CAP 09/18/18 Allergies Allergies: Coded Allergies: No Known Allergy (Unverified , 01/14/19) PMhx/Soc History of Surgery: Yes (PERMACATH PLACEMENT, FISTULA CREATION) Anesthesia Reaction: No Hx 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 Disorder: Yes (NEUROPATHY) Hx Respiratory Disorders: No Hx Cardiac Disorders: Yes (HTN) Hx Psychiatric Problems: No Hx Miscellaneous Medical Probl: Yes (Diabetes, end-stage renal disease) Hx Alcohol Use: No Hx Substance Use: No Hx Tobacco Use: No Smoking Status: Never smoker FmHx Family History: diabetes Physical Exam Vitals Vital Signs Date Temp Pulse Resp B/P (MAP) Pulse Ox O2 O2 Flow FiO2 Time Delivery Rate 02/10/19 110 22 141/74 98 Nasal 4.0 06:26 (96) Cannula 02/10/19 78 22 115/52 98 Nasal 4.0 06:17 (73) Cannula 02/10/19 108 18 104/60 100 05:10 (75) 02/10/19 98.6 101 18 120/65 100 Room Air 05:10 (83) Physical Exam Const: No apparent distress, well-developed. Cachectic. Head: Normocephalic, Atraumatic Eyes: Normal Conjunctiva. Pupils equal, round and reactive to light ENT: Normal External Ears, Nose. Dry mucous membranes. Neck: Full range of motion. No meningismus. Resp: Clear to auscultation bilaterally, No wheezes, rales or rhonchi Cardio: Regular rhythm. Tachycardia. No murmurs, rubs or gallops Abd: Soft, non tender, non distended. Normal bowel sounds Skin: No petechiae or rashes Back: No midline tenderness. No CVA tenderness Ext: No cyanosis, or edema Neur: Lethargic, arousable. Oriented x1. Generalized weakness but no focal deficits. Psych: Normal Mood and Affect Result Diagram: 02/10/19 0513 02/10/19 0513 Results 24 hrs Laboratory Tests Test 02/10/19 05:12 02/10/19 05:13 02/10/19 05:23 02/10/19 06:00 Bedside Glucose > 595 mg/dL > 595 mg/dL White Blood 12.9 10^3/ul Count Red Blood Count 3.94 10^6/ul Hemoglobin 12.7 g/dl Hematocrit 44.2 % Mean Corpuscular 112.2 fl Volume Mean Corpuscular 32.2 pg Hemoglobin Mean Corpuscular 28.7 g/dl Hemoglobin Ellen nt Red Cell 15.1 % Distribution Width Platelet Count 249 10^3/UL Mean Platelet 12.8 fl Volume Immature 0.500 % Granulocytes % Neutrophils % 93.3 % Lymphocytes % 2.0 % Monocytes % 3.9 % Eosinophils % 0.0 % Basophils % 0.3 % Nucleated Red 0.0 /100WBC Blood Cells % Immature 0.070 10^3/ul Granulocytes # Neutrophils # 12.0 10^3/ul Lymphocytes # 0.3 10^3/ul Monocytes # 0.5 10^3/ul Eosinophils # 0.0 10^3/ul Basophils # 0.0 10^3/ul Nucleated Red 0.0 10^3/ul Blood Cells # Sodium Level 106 mmol/L Potassium Level 9.3 mmol/L Chloride Level 75 mmol/L Carbon Dioxide 15 mmol/L Level Anion Gap 16 Blood Urea 55 mg/dl Nitrogen Creatinine 5.02 mg/dl Est Glomerular 12 mL/min Filtrat Rate mL/min Glucose Level 1728 mg/dl Hemoglobin A1c 11.0 % Calcium Level 9.0 mg/dl Phosphorus Level 7.7 mg/dl Magnesium Level 1.7 mg/dl Blood Gas Blood venous Specimen Source Arterial Blood 02/10/2019 5:26:1 Date Drawn 0 AM Arterial Blood VENOUS LINE Gas Puncture Site Bradley Test N/A Venous Blood pH 7.186 Venous Blood 38.5 mmHG pCO2 (Temp Corrected) Venous Blood pO2 37.9 mmHG (Temp Corrected) Venous Blood 14.2 mmol/L HCO3 Venous Blood 58.7 mmHG Oxygen Saturation Venous Blood -13.2 mmol/L Base Excess Venous Blood 13.5 g/dl Total Hemoglobin Venous Blood 58.1 % Oxyhemoglobin Venous Blood 0.3 % Methemoglobin Carboxyhemoglobi 0.8 % n Blood Gas 37.0 C Temperature Blood Gas ROOM AIR Modality FiO2 21.0 % Blood Gas S. Critical Value RENALDO RN Read Back Blood Gas MM Notified Whom Blood Gas 02/10/2019 5:32:0 Notified Time 6 AM Test 02/10/19 06:14 Bedside Glucose > 595 mg/dL Current Medications Medications Dose Sig/Estrada Start Time Status Last (Trade) Ordered Route PRN Stop Time Admin Dose Reason Admin Sodium 650 ml @ ONCE ONCE 02/10/19 DC 02/10/19 Chloride 650 mls/hr IV 05:30 05:15 02/10/19 06:29 Calcium 1,000 mg ONCE STAT 02/10/19 DC 02/10/19 Chloride IV 05:28 05:38 (Ca Chloride 02/10/19 05:30 10% Syg) Ondansetron 4 mg ONCE STAT 02/10/19 DC 02/10/19 HCl (Zofran IV 05:28 05:38 Inj) 02/10/19 05:30 Sodium 30 gm ONCE STAT 02/10/19 DC Polystyrene PO 05:51 Sulfonate 02/10/19 05:53 (Kayexelate 15 Gm Kit (Powder+Sorbi jens)) Albuterol 15 mg ONCE STAT 02/10/19 DC 02/10/19 (Proventil INH 05:51 07:00 0.5% (Neb)) 02/10/19 05:53 Sodium 50 ml ONCE STAT 02/10/19 DC 02/10/19 Bicarbonate IV 05:51 06:03 (Na Bicarb 02/10/19 05:53 8.4% Syg) Insulin 10 unit ONCE STAT 02/10/19 DC 02/10/19 Human IVP 05:51 06:02 Regular 02/10/19 05:53 (Humulin R) Dextrose ONCE PRN 02/10/19 (D50w IV DECREASED 06:00 Syringe) GLUCOSE Potassium 1,000 ml @ Q0M IV 02/10/19 Chloride/Sodi 0 mls/hr 06:20 um Chloride Potassium 1,000 ml @ Q0M IV 02/10/19 Chloride/Dext 0 mls/hr 06:20 toñito/ Sod Cl Potassium 1,000 ml @ Q0M IV 02/10/19 Chloride/Sodi 0 mls/hr 06:20 um Chloride Potassium 1,000 ml @ Q0M IV 02/10/19 Chloride/Dext 0 mls/hr 06:20 toñito/ Sod Cl Sodium 1,000 ml @ Q0M IV 02/10/19 02/10/19 Chloride 0 mls/hr 06:20 07:06 1,000 ml @ Q0M IV 02/10/19 Dextrose/Sodi 0 mls/hr 06:20 um Chloride Procedures/MDM MDM The patient's presentation warrants further investigation. Previous medical records, if available, were reviewed. LABS The patient's laboratory testing was obtained and reviewed. No emergent treatm ent was required unless described below. CBC: Leukocytosis which I suspect to be reactive. Macrocytic anemia, nonemergent. Normal platelet count. Chemistry: Anion gap metabolic acidosis with a severe hyperglycemia concerning for DKA. Severe hyperkalemia requiring dialysis immediately. Hyponatremia, likely pseudohyponatremia related to the severely of elevated glucose. Elevated BUN and creatinine in line with end-stage renal disease. ABG: Significant metabolic acidosis. EKG EKG read by me: Rate/Rhythm: Tachycardia at 106 bpm. Intervals: No P waves present. Wide QRS complex in a sinusoidal pattern concerning for severe hyperkalemia. [place]: Indeterminate Impression: No evidence of acute ischemia. Wide QRS complex in a sinusoidal pattern concerning for severe hyperkalemia. Repeat EKG read by me: Rate/Rhythm: Tachycardia at 106 bpm. Intervals: No P waves present. Wide QRS complex in a sinusoidal pattern concerning for severe hyperkalemia. [place]: Indeterminate Impression: No STEMI. Wide QRS complex in a sinusoidal pattern concerning for severe hyperkalemia, appears to be worsening. Repeat EKG read by me: Rate/Rhythm: Sinus rhythm at 82 bpm with a marked sinus arrhythmia Intervals: Normal [place]: Normal Impression: No evidence of ischemia. Marked sinus arrhythmia TREATMENT/DISPOSITION The patient presents for multiple metabolic derangements. He has end-stage renal disease and missed dialysis today. The patient is severely hyperkalemic with an EKG that reveals a sinusoidal pattern. The patient was treated in accordance to the hyperkalemia protocol which included multiple rounds of bicarbonate, calcium, insulin, albuterol. The patient cannot tolerate swallowing Kayexalate. The patient requires dialysis immediately. Dr. Grider was consulted for nephrology and ordered emergent dialysis. The patient does also have evidence of DKA which will require the DKA protocol. The patient was treated with IV fluids and started on insulin drip. The patient does also have evidence of hyponatremia. This appears to be related to pseudohyponatremia from his significant hyperglycemia. That said this will need to be managed closely in the ICU. The patient does have a leukocytosis, but I suspect this to be reactive. I do not suspect an infectious etiology and I do not feel the patient would benefit from antibiotics at this time. ADMISSION At this time, I feel that the patient requires admission for further evaluation and management. The patient will be admitted to Panel in accordance with the patient's insurance. The patient was accepted by Dr. Kelley to the ICU at 6:23 AM on February 10, 2019. CRITICAL CARE NOTE Time: 40 minutes excluding all billable procedures. Treatments/Evaluations: The patient was at risk of hemodynamic compromise. Timing of critical care involved close serial monitoring, evaluation of the patient's medical record including previous records & current laboratory/imaging studies, potential interventions for prevention of hemodynamic/ cardiopulmonary/ neurologic compromise, maintaining tight fluid balance, and any discussions with the family and/or consultants regarding the patient's status and prognosis. Disclaimer: Inadvertent spelling and grammatical errors are likely due to EHR/dictation software use and do not reflect on the overall quality of patient care. Note that the electronic time recorded on this note does not necessarily reflect the actual time of the patient encounter. Departure Diagnosis: Primary Impression: Acute hyperkalemia Additional Impressions: Diabetic ketoacidosis Diabetes mellitus type: other specified (including AMADOU) Diabetes mellitus complication detail: without coma Qualified Codes: E13.10 - Other specified diabetes mellitus with ketoacidosis without coma Hyponatremia Hyperglycemia End-stage renal disease needing dialysis High anion gap metabolic acidosis Macrocytic anemia Condition: Critical KEVEN HOLDER MD Feb 10, 2019 08:01
[2019-02-10] MEDS: HEPARIN 5,000 UNIT/1 ML VIAL SC SCH ×3 (08:55→21:12)
[2019-02-10] MEDS: IPRATROPIUM (NEB) 0.5 MG/2.5 ML AMP NEB SCH ×4 (09:00→19:46)
[2019-02-10] MEDS: ALBUTEROL 0.083% (NEB) 2.5 MG/3 ML AMP NEB SCH ×4 (09:00→19:47)
[2019-02-10] MEDS ORDERED: FAMOTIDINE 20 MG INJ IV SCH (09:00)
--- NOTE | 2019-02-10 09:15 | HP ---
Date/Time of Note Date/Time of Note DATE: 02/10/19 TIME: 08:53 Assessment/Plan VTE Prophylaxis Pharmacological prophylaxis: heparin Lines/Catheters IV Catheter Type (from Nrsg): [place] Assessment/Plan Hospital Course This is a 48-year-old male being admitted to the ICU floor for: 1.Acute encephalopathy: Multifactorial secondary to uremia, severe hyperglycemia, dehydration. Insulin GTT, stat dialysis have been ordered. 2.Severe hyperkalemia: Patient presented with potassium of 9. EKG did show QRS complex and sinusoidal pattern. Patient was given stat treatment including insulin and Kayexalate albuterol. His EKGs did appear to improve. Will order stat dialysis. Serial EKGs. Will consult cardiology , nephrology Dr. santos 3.DKA: Initially DKA protocol ordered. However given the patient's underlying end-stage renal disease as well as history of systolic heart failure, we will need to manage the fluids carefully. We will initiate him on the ICU insulin drip. We will give him gentle boluses of fluid as indicated for monitoring patient's volume status and a maintenance 40 cc an hour of normal saline. 4. Uremia: Hyperkalemia of 9 along with metabolic acidosis. Stat dialysis has been ordered by Dr. Santos 5.Metabolic acidosis: Secondary to underlying uremia, DKA. Insulin drip, stat dialysis. Patient was given sodium bicarb in the emergency department. Will monitor closely. Nephrology is on board. 6.Pseudohyponatremia: Patient's sodium when corrected for glucose is 132. Further management as per nephro 7.Type 1 diabetes: Patient has an insulin pump. Patient likely noncompliant. Hemoglobin A1c of 11. Will turn off the pump at the current time. Insulin ggt. 8. End-stage renal disease: On dialysis Sunday. Will consult nephrology Dr. Santos for stat dialysis given patient's uremia. 9. abnormal EKG: Patient did present with wide QRS complexes on EKG, which did improve. Patient was treated for hyperkalemia. Will check an echocardiogram. Consult cardiology 10 history of systolic cardiopathy: Given patient's abnormal EKG findings as well as hyperkalemia. Will repeat an echocardiogram to assess heart morphology. Will consult cardiology. 11. Dyslipidemia: Resume statin as indicated 12. Hypertension: Resume home meds when indicated 13. Gout: Hold allopurinol at the current time. 14. DVT GI prophylaxis: Heparin, H2 angela Further treatment strategy will be implemented as per the clinical course Greater than 45 minutes critical care time was spent in the care maintenance patient. Result Diagram: 02/10/19 0513 02/10/19 0513 Results 24hrs Laboratory Tests Test 02/10/19 05:12 02/10/19 05:13 02/10/19 05:23 02/10/19 06:00 Bedside Glucose > 595 *H > 595 *H White Blood Count 12.9 H Red Blood Count 3.94 L Hemoglobin 12.7 L Hematocrit 44.2 Mean Corpuscular 112.2 H Volume Mean Corpuscular 32.2 Hemoglobin Mean Corpuscular 28.7 L Hemoglobin Concen t Red Cell 15.1 H Distribution Width Platelet Count 249 # Mean Platelet 12.8 H Volume Immature 0.500 H Granulocytes % Neutrophils % 93.3 H Lymphocytes % 2.0 L Monocytes % 3.9 Eosinophils % 0.0 Basophils % 0.3 Nucleated Red 0.0 Blood Cells % Immature 0.070 H Granulocytes # Neutrophils # 12.0 H Lymphocytes # 0.3 L Monocytes # 0.5 Eosinophils # 0.0 Basophils # 0.0 Nucleated Red 0.0 Blood Cells # Sodium Level 106 *L Potassium Level 9.3 *H Chloride Level 75 L Carbon Dioxide 15 L Level Anion Gap 16 H Blood Urea 55 H Nitrogen Creatinine 5.02 H Est Glomerular 12 L Filtrat Rate mL/min Glucose Level 1728 *H Hemoglobin A1c 11.0 H Calcium Level 9.0 Phosphorus Level 7.7 H Magnesium Level 1.7 Hepatitis B Pending Surface Antigen Hepatitis B Core Pending Total Antibody Hepatitis C Pending Antibody Blood Gas Blood venous Specimen Source Arterial Blood 02/10/2019 5:26:1 Date Drawn 0 AM Arterial Blood VENOUS LINE Gas Puncture Site Bradley Test N/A Venous Blood pH 7.186 *L Venous Blood pCO2 38.5 (Temp Corrected) Venous Blood pO2 37.9 H (Temp Corrected) Venous Blood HCO3 14.2 L Venous Blood 58.7 Oxygen Saturation Venous Blood Base -13.2 L Excess Venous Blood 13.5 Total Hemoglobin Venous Blood 58.1 Oxyhemoglobin Venous Blood 0.3 Methemoglobin Carboxyhemoglobin 0.8 Blood Gas 37.0 Temperature Blood Gas ROOM AIR Modality FiO2 21.0 Blood Gas S. Critical Value [facility] Read Back Blood Gas MM Notified Whom Blood Gas 02/10/2019 5:32:0 Notified Time 6 AM Test 02/10/19 06:14 02/10/19 06:57 02/10/19 07:40 Bedside Glucose > 595 *H > 595 *H > 595 *H HPI/ROS Admit Date/Time Admit Date/Time Feb 10, 2019 at 06:26 Hx of Present Illness Chief complaint: Generalized weakness The following history was obtained from the ED physician, as patient was unable to write a proper history as he was altered. This is a 48-year-old male with a past medical history of hypertension, diabetes, diabetic neuropathy, end-stage renal disease status post left arm fistula and right permacatheter placement on dialysis Sunday/Sunday/Sunday who is presenting from outside the dialysis center with generalized weakness and feeling unwell. The patient apparently was on his way to his dialysis center but felt too weak and was unable to walk himself into the center. He was found outside and was very confused. The patient is usually alert and oriented x3 but he is currently only oriented x1. The patient feels generally weak. In the emergency department patient was noted for short period of time to be unresponsive, he was given sodium bicarb and insulin, albuterol and Kayexalate as he was noted to have severe hyperkalemia with potassium of 9. Initial EKG did show sinus tachycardia with wide QRS complexes in a sinus floor pattern concerning for severe hyperkalemia. He was given the above treatments. Most recent EKG shows sinus rhythm at 82 bpm with marked sinus arrhythmia. Dr. Grider was initially contacted for emergent dialysis, however it was found that the patient's primary doctor was Dr. Santos. I did speak with Dr. Santos over the phone who was going to be putting in stat dialysis orders. Allergies: NKDA Medications: See MAR ROS Subjective hx not possible: pt critical status (Patient currently altered and confused, but he is awake) PMH/Family/Social Past Medical History ESRD Sunday, Sunday, Sunday DM with insulin pump Hypochromic anemia Hypertension. Nonischemic cardiomyopathy History of gout. Dyslipidemia. Hx of diabetic nephropathy and neuropathy. Further unable to obtain given patient's confusion Medications Current Medications Ondansetron HCl (Zofran Inj) 4 mg Q6H PRN IV NAUSEA AND/OR VOMITING; Start 02/10/19 at 07:30 Albuterol (Proventil 0.083% (Neb)) 2.5 mg Q4H RESP THERAPY NEB ; Start 02/10/19 at 09:00 Ipratropium [place] (Atrovent 0.02% (Neb)) 0.5 mg Q4H RESP THERAPY NEB ; Start 02/10/19 at 09:00 Acetaminophen (Tylenol Liquid) 650 mg Q6H PRN PO PAIN LEVEL 1-3 OR FEVER; Start 02/10/19 at 07:30 Famotidine (Pepcid Iv) 20 mg DAILY IV ; Start 02/10/19 at 09:00 Heparin Sodium (Porcine) (Heparin (5000 Units/1ml)) 5,000 unit Q8 SC ; Start 02/10/19 at 07:30 Diagnostic Test (Pha) (Accu-Chek) 1 ea Q1H XX Last administered on 02/10/19at 08:48; Admin Dose 1 EA; Start 02/10/19 at 08:00 Insulin Human Regular 100 unit/ Sodium Chloride 100 ml @ 0 mls/hr PER PROTOCOL IV Last administered on 02/10/19at 08:01; Admin Dose 12 MLS/HR; Start 02/10/19 at 08:00 Miscellaneous Information (* Miscellaneous Pharmacy Order) Treatment of Hypoglycemia: 1.BG 51... Per protocol XX ; Start 02/10/19 at 08:00 Dextrose (D50w Syringe) 25 ml Q15M PRN IV .DECREASED GLUCOSE; Start 02/10/19 at 08:00 Dextrose (D50w Syringe) 50 ml Q15M PRN IV .DECREASED GLUCOSE; Start 02/10/19 at 08:00 Sodium Chloride 500 ml @ 500 mls/hr Q1H ONCE IV Last administered on 02/10/19at 08:44; Admin Dose 500 MLS/HR; Start 02/10/19 at 08:00; Stop 02/10/19 at 08:59 Coded Allergies: No Known Allergy (Unverified , 01/14/19) Past Surgical History PERMACATH PLACEMENT, FISTULA CREATION, further unable to obtain given patient's confusion Past Surgical Hx: appendectomy, endoscopy, other Family History Significant Family History: no pertinent family hx Social History Unable to obtain given patient's confusion Smoking Status: Never smoker Exam/Review of Systems Vital Signs Vitals Vital Signs Date Temp Pulse Resp B/P (MAP) Pulse Ox O2 O2 Flow FiO2 Time Delivery Rate 02/10/19 98.1 106 22 180/70 99 Nasal 4.0 07:15 (106) Cannula 02/10/19 36 07:00 Exam Exam General: Awake, agitated altered HEENT: Atraumatic, normocephalic. The pupils are equal, round and reactive. Extraocular motor are intact Neck: Supple with full range of motion. No rigidity or meningismus Chest: Permacatheter Lungs: Clear to auscultation bilaterally no crackles rales or wheezing Heart: Normal S1-S2, Regular rhythm and rate. No murmur, S3, or S4 Abdomen: Soft , nontender, nondistended , bowel sounds are present. No guarding no rebound tenderness , No masses or organomegaly. No costovertebral temporal angle mass Extremities: Normal to inspection, no edema no cyanosis Skin: Patient does have what appears to be fresh abrasion on the left knee. Neurologic: Awake, agitated, altered, moving all 4 extremities. MERVAT TORIBIO Feb 10, 2019 09:03
--- NOTE | 2019-02-10 09:37 | QN ---
Documentation Comment pt seen and examined HARRY ARSHAD MD Feb 10, 2019 09:36
[2019-02-10] MEDS: INSULIN HUMAN REGULAR 100 UNIT in SOD CHLORIDE 0.9% 99 ML IV SCH ×2 (10:33→13:18)
[2019-02-10] MEDS: SOD CHLORIDE 0.9% 1,000 ML IV SCH ×2 (10:33→13:37)
--- NOTE | 2019-02-10 11:11 | CONS ---
DATE OF ADMISSION: 02/10/2019 DATE OF CONSULTATION: REASON FOR CONSULTATION: Abnormal electrolytes, hemodialysis. HISTORY OF PRESENT ILLNESS: This is a 48-year-old male with a past medical history of diabetes, hypertension, end-stage renal disease on hemodialysis past 1 year. 1. Nonischemic cardiomyopathy with EF of 20%, gout, dyslipidemia, overweight, history of diabetic nephropathy, neuropathy, right toe wound, presented to the Emergency Department after being brought in from dialysis center for altered level of confusion. According to the patient, the patient went to his dialysis center today, but felt too weak, was unable to walk. He was found very confused and was brought into the Emergency Department for further evaluation. According to the patient, he had been cheating on his diet for the past few days. He was having really bad heartburn. He was taking omeprazole [id number]. He felt very nauseous. He was drinking lots of water. According to the patient, he had insulin pump at home and checked his blood sugar, yesterday it was 103. On arrival to ED, vital signs initially show temperature 98.1, pulse 106, respirations 21, blood pressure was 180/90. The patient had labs showed white count of 12.9, hemoglobin 12.7, platelet count 249. Glucose of 1728. Sodium of 106 and potassium 9.3, bicarb 15, BUN of 55, creatinine 5.02. Initial EKG had showed sinus tachycardia wide QRS complex. He was given Kayexalate, albuterol and started on insulin drip and repeat potassium was 1, potassium was 6.8, sodium 112 and was admitted for further management. PAST MEDICAL HISTORY: 1. Type 1 diabetes. 2. End-stage renal disease on hemodialysis Sunday, Sunday, Sunday. 3. History of nonischemic cardiomyopathy. 4. Dyslipidemia. 5. Hypertension. 6. Gout. 7. Diabetic retinopathy and nephropathy. ALLERGIES: None. PAST SURGICAL HISTORY: The patient had a right Perm-A-Cath placement. The patient also had a left AV fistula that was placed in August. SOCIAL HISTORY: Denies any history of smoking, alcohol or any drug use, lives by himself at home. MEDICATIONS: Using at home: 1. Coreg 6.25 b.i.d. 2. Amitriptyline. 3. Aspirin 81. 4. Gabapentin 100. 5. Tramadol. 6. Prilosec. 7. Insulin pump. 8. Allopurinol. REVIEW OF SYSTEMS: The patient complained of nausea. Currently is awake, alert, oriented x4. Denies any headache currently, any chest pain, any shortness of breath, any orthopnea, PND, lower extremity edema. The patient has some epigastric pain. Denied any hematemesis, any melena, any blood per rectum. PHYSICAL EXAM Gen: curled side of bed, awake,alert and oriented neck:supple lungs: clear abdomen: soft, non tender ext : no edema, blackish dis of toe noted rt permacath left fistula +bruit/ thrill LABORATORY DATA: Currently showed sodium 112, potassium 6.8, chloride 17, bicarbonate 17, BUN of 57, creatinine 4.95, glucose 1728. White count 12.9, hemoglobin 12.7, platelet count 249. ABG initially VBG 7.186, pCO2 38, bicarbonate of 14. Chest x-ray did not show any acute abnormality. Hepatitis panel is negative. ASSESSMENT AND PLAN: This is a 48-year-old male who presented with: 1. Severe diabetic ketoacidosis, on insulin drip. Not sure if the insulin pump is working. Has questions and concerns about his vision. 2. Severe hyponatremia, likely combination pseudo with hyperglycemia. Sugar is 1728 plus excessive water intake due to hyperglycemia. 3. Severe hyperkalemia, likely secondary to acidosis, noncompliance. The patient has been noncompliant with his diet. 4. Acute encephalopathy, metabolic secondary to above, electrolyte changes, diabetic ketoacidosis. 5. Hyperlipidemia. 6. Nonischemic cardiomyopathy. 7. End-stage renal disease on hemodialysis. 8. Diabetic with complication of diabetic retinopathy, neuropathy and nephropathy. 9. EKG changes secondary to #1. 10. Gout. PLAN: 1. At this period of time, the patient is admitted critical to ICU. 2. Corrected sodium for 112 is 138 given the hyperglycemia of 1728. 3. The patient will receive stat hemodialysis for correction of hyperkalemia and acidosis.However we will have to closely watch potassium as pt is on insulin htt 4. We will also continue the patient on gentle luids with NS 5. The patient will get a BMP every 2 to 3 hours. 6. Recommend endocrine consultation. 7. The rest of the treatment will depend on the patient's hospitalization course. The patient will need some kind of placement or family support to assist him at home. Clearly he is not able to take care of himself, not sure about his vision. Dictated By: HARRY PALAFOX Conf#: [id number] DID#: [id number] CC: MERVAT TORIBIO MD;*EndCC* MTDD
[2019-02-10] MEDS: HEPARIN 1000 UNITS/ML 10 ML INJ CATHETER SCH (13:28)
[2019-02-10] MEDS ORDERED: POTASSIUM CHLORIDE 100 ML IVPB ONE (13:30)
--- NOTE | 2019-02-10 15:45 | PN ---
Date/Time of Note Date/Time of Note DATE: 02/10/19 TIME: 15:40 Assessment/Plan VTE Prophylaxis Pharmacological prophylaxis: heparin Lines/Catheters IV C[facility]from [facility] Urinary Cath still in place: No Assessment/Plan Hospital Course 1. Acute metabolic encephalopathy: Multifactorial secondary to uremia, severe hyperglycemia, dehydration-improved Continue insulin drip Hemodialysis per renal 2. Severe hyperkalemia-resolving Patient presented with potassium of 9. EKG did show QRS complex and sinusoidal pattern. Patient was given stat treatment including insulin and Kayexalate albuterol Potassium has improved with insulin and dialysis 3. DKA Continue insulin for DKA protocol Endocrinology consultation appreciated 4. End-stage renal disease with uremia and hyperkalemia Dialysis has been initiated 5. Metabolic acidosis secondary to renal failure and DKA Insulin and dialysis 6. Pseudohyponatremia secondary to hyperglycemia 7. Type 1 diabetes: Patient has an insulin pump. Patient likely noncompliant. Hemoglobin A1c of 11. Will turn off the pump at the current time Insulin ggt Endocrinology consultation 8. History of systolic cardiopathy: Given patient's abnormal EKG findings as well as hyperkalemia. Will repeat an echocardiogram to assess heart morphology. Will consult cardiology. 9. Dyslipidemia: Resume statin as indicated 10. Hypertension: Resume home meds when indicated 11. Gout: Hold allopurinol at the current time. Prophylaxis: Heparin Result Diagram: 02/10/19 0513 02/10/19 1202 Results 24hrs Laboratory Tests Test 02/10/19 05:12 02/10/19 05:13 02/10/19 05:23 02/10/19 06:00 Bedside Glucose > 595 *H > 595 *H White Blood Count 12.9 H Red Blood Count 3.94 L Hemoglobin 12.7 L Hematocrit 44.2 Mean Corpuscular 112.2 H Volume Mean Corpuscular 32.2 Hemoglobin Mean Corpuscular 28.7 L Hemoglobin Concen t Red Cell 15.1 H Distribution Width Platelet Count 249 # Mean Platelet 12.8 H Volume Immature 0.500 H Granulocytes % Neutrophils % 93.3 H Lymphocytes % 2.0 L Monocytes % 3.9 Eosinophils % 0.0 Basophils % 0.3 Nucleated Red 0.0 Blood Cells % Immature 0.070 H Granulocytes # Neutrophils # 12.0 H Lymphocytes # 0.3 L Monocytes # 0.5 Eosinophils # 0.0 Basophils # 0.0 Nucleated Red 0.0 Blood Cells # Sodium Level 106 *L Potassium Level 9.3 *H Chloride Level 75 L Carbon Dioxide 15 L Level Anion Gap 16 H Blood Urea 55 H Nitrogen Creatinine 5.02 H Est Glomerular 12 L Filtrat Rate mL/min Glucose Level 1728 *H Hemoglobin A1c 11.0 H Calcium Level 9.0 Phosphorus Level 7.7 H Magnesium Level 1.7 Hepatitis B NEGATIVE Surface Antigen Hepatitis B Core NEGATIVE Total Antibody Hepatitis C NEGATIVE Antibody Blood Gas Blood venous Specimen Source Arterial Blood 02/10/2019 5:26:1 Date Drawn 0 AM Arterial Blood VENOUS LINE Gas Puncture Site Bradley Test N/A Venous Blood pH 7.186 *L Venous Blood pCO2 38.5 (Temp Corrected) Venous Blood pO2 37.9 H (Temp Corrected) Venous Blood HCO3 14.2 L Venous Blood 58.7 Oxygen Saturation Venous Blood Base -13.2 L Excess Venous Blood 13.5 Total Hemoglobin Venous Blood 58.1 Oxyhemoglobin Venous Blood 0.3 Methemoglobin Carboxyhemoglobin 0.8 Blood Gas 37.0 Temperature Blood Gas ROOM AIR Modality FiO2 21.0 Blood Gas S. Critical Value MEILY MACARIO Read Back Blood Gas MM Notified Whom Blood Gas 02/10/2019 5:32:0 Notified Time 6 AM Test 02/10/19 06:14 02/10/19 06:57 02/10/19 07:40 02/10/19 08:19 Bedside Glucose > 595 *H > 595 *H > 595 *H Sodium Level 112 *L Potassium Level 6.8 #*H Chloride Level 79 L Carbon Dioxide 17 L Level Anion Gap 16 H Blood Urea 57 H Nitrogen Creatinine 4.95 H Est Glomerular 13 L Filtrat Rate mL/min Glucose Level 1703 *H Calcium Level 9.6 Phosphorus Level 8.6 H Magnesium Level 1.9 Triglycerides 79 Level Cholesterol Level 202 H LDL Cholesterol, 86 Calculated HDL Cholesterol 100 H Cholesterol/HDL 2.0 Ratio Test 02/10/19 08:43 02/10/19 09:48 02/10/19 10:25 02/10/19 10:59 Bedside Glucose > 595 *H > 595 *H > 595 *H Sodium Level 117 *L Potassium Level 4.8 # Chloride Level 84 L Carbon Dioxide 19 L Level Anion Gap 14 H Blood Urea 57 H Nitrogen Creatinine 4.91 H Est Glomerular 13 L Filtrat Rate mL/min Glucose Level 1345 *H Calcium Level 9.4 Phosphorus Level 5.5 #H Magnesium Level 1.9 Test 02/10/19 11:54 02/10/19 12:02 02/10/19 12:57 02/10/19 13:45 Bedside Glucose > 595 *H 433 *H 352 H Sodium Level 128 L Potassium Level 3.1 L Chloride Level 92 L Carbon Dioxide 25 Level Anion Gap 11 Blood Urea 33 #H Nitrogen Creatinine 2.83 #H Est Glomerular 24 L Filtrat Rate mL/min Glucose Level 628 #*H Calcium Level 9.0 Phosphorus Level 3.4 # Magnesium Level 1.9 Test 02/10/19 15:12 Bedside Glucose 285 H Subjective 24 Hr Interval Summary Constitutional: no complaints Exam/Review of Systems Exam Vitals Vital Signs Date Temp Pulse Resp B/P (MAP) Pulse Ox O2 O2 Flow FiO2 Time Delivery Rate 02/10/19 103 27 129/58 98 Nasal 14:00 (81) Cannula 02/10/19 98.8 12:00 02/10/19 4.0 10:30 02/10/19 36 07:00 Constitutional: alert, oriented Respiratory: clear to auscultation Cardiovascular: regular rate and rhythm Gastrointestinal: soft; No distended Musculoskeletal: nl extremities to inspection Results Results 24hrs Laboratory Tests Test 02/10/19 05:12 02/10/19 05:13 02/10/19 05:23 02/10/19 06:00 Bedside Glucose > 595 *H > 595 *H White Blood Count 12.9 H Red Blood Count 3.94 L Hemoglobin 12.7 L Hematocrit 44.2 Mean Corpuscular 112.2 H Volume Mean Corpuscular 32.2 Hemoglobin Mean Corpuscular 28.7 L Hemoglobin Concen t Red Cell 15.1 H Distribution Width Platelet Count 249 # Mean Platelet 12.8 H Volume Immature 0.500 H Granulocytes % Neutrophils % 93.3 H Lymphocytes % 2.0 L Monocytes % 3.9 Eosinophils % 0.0 Basophils % 0.3 Nucleated Red 0.0 Blood Cells % Immature 0.070 H Granulocytes # Neutrophils # 12.0 H Lymphocytes # 0.3 L Monocytes # 0.5 Eosinophils # 0.0 Basophils # 0.0 Nucleated Red 0.0 Blood Cells # Sodium Level 106 *L Potassium Level 9.3 *H Chloride Level 75 L Carbon Dioxide 15 L Level Anion Gap 16 H Blood Urea 55 H Nitrogen Creatinine 5.02 H Est Glomerular 12 L Filtrat Rate mL/min Glucose Level 1728 *H Hemoglobin A1c 11.0 H Calcium Level 9.0 Phosphorus Level 7.7 H Magnesium Level 1.7 Hepatitis B NEGATIVE Surface Antigen Hepatitis B Core NEGATIVE Total Antibody Hepatitis C NEGATIVE Antibody Blood Gas Blood venous Specimen Source Arterial Blood 02/10/2019 5:26:1 Date Drawn 0 AM Arterial Blood VENOUS LINE Gas Puncture Site Bradley Test N/A Venous Blood pH 7.186 *L Venous Blood pCO2 38.5 (Temp Corrected) Venous Blood pO2 37.9 H (Temp Corrected) Venous Blood HCO3 14.2 L Venous Blood 58.7 Oxygen Saturation Venous Blood Base -13.2 L Excess Venous Blood 13.5 Total Hemoglobin Venous Blood 58.1 Oxyhemoglobin Venous Blood 0.3 Methemoglobin Carboxyhemoglobin 0.8 Blood Gas 37.0 Temperature Blood Gas ROOM AIR Modality FiO2 21.0 Blood Gas S. Critical Value EMILY MACARIO Read Back Blood Gas MM Notified Whom Blood Gas 02/10/2019 5:32:0 Notified Time 6 AM Test 02/10/19 06:14 02/10/19 06:57 02/10/19 07:40 02/10/19 08:19 Bedside Glucose > 595 *H > 595 *H > 595 *H Sodium Level 112 *L Potassium Level 6.8 #*H Chloride Level 79 L Carbon Dioxide 17 L Level Anion Gap 16 H Blood Urea 57 H Nitrogen Creatinine 4.95 H Est Glomerular 13 L Filtrat Rate mL/min Glucose Level 1703 *H Calcium Level 9.6 Phosphorus Level 8.6 H Magnesium Level 1.9 Triglycerides 79 Level Cholesterol Level 202 H LDL Cholesterol, 86 Calculated HDL Cholesterol 100 H Cholesterol/HDL 2.0 Ratio Test 02/10/19 08:43 02/10/19 09:48 02/10/19 10:25 02/10/19 10:59 Bedside Glucose > 595 *H > 595 *H > 595 *H Sodium Level 117 *L Potassium Level 4.8 # Chloride Level 84 L Carbon Dioxide 19 L Level Anion Gap 14 H Blood Urea 57 H Nitrogen Creatinine 4.91 H Est Glomerular 13 L Filtrat Rate mL/min Glucose Level 1345 *H Calcium Level 9.4 Phosphorus Level 5.5 #H Magnesium Level 1.9 Test 02/10/19 11:54 02/10/19 12:02 02/10/19 12:57 02/10/19 13:45 Bedside Glucose > 595 *H 433 *H 352 H Sodium Level 128 L Potassium Level 3.1 L Chloride Level 92 L Carbon Dioxide 25 Level Anion Gap 11 Blood Urea 33 #H Nitrogen Creatinine 2.83 #H Est Glomerular 24 L Filtrat Rate mL/min Glucose Level 628 #*H Calcium Level 9.0 Phosphorus Level 3.4 # Magnesium Level 1.9 Test 02/10/19 15:12 Bedside Glucose 285 H Medications Medication Current Medications Ondansetron HCl (Zofran Inj) 4 mg Q6H PRN IV NAUSEA AND/OR VOMITING; Start 02/10/19 at 07:30 Albuterol (Proventil 0.083% (Neb)) 2.5 mg Q4H RESP THERAPY NEB ; Start 02/10/19 at 09:00 Ipratropium [place] (Atrovent 0.02% (Neb)) 0.5 mg Q4H RESP THERAPY NEB ; Start 02/10/19 at 09:00 Acetaminophen (Tylenol Liquid) 650 mg Q6H PRN PO PAIN LEVEL 1-3 OR FEVER; Start 02/10/19 at 07:30 Famotidine (Pepcid Iv) 20 mg DAILY IV Last administered on 02/10/19at 08:57; Admin Dose 20 MG; Start 02/10/19 at 09:00 Heparin Sodium (Porcine) (Heparin (5000 Units/1ml)) 5,000 unit Q8 SC Last administered on 02/10/19at 13:38; Admin Dose 5,000 UNIT; Start 02/10/19 at 07:30 Diagnostic Test (Pha) (Accu-Chek) 1 ea Q1H XX Last administered on 02/10/19at 15:23; Admin Dose 1 EA; Start 02/10/19 at 08:00 Miscellaneous Information (* Miscellaneous Pharmacy Order) Treatment of Hypoglycemia: 1.BG 51... Per protocol XX ; Start 02/10/19 at 08:00 Dextrose (D50w Syringe) 25 ml Q15M PRN IV .DECREASED GLUCOSE; Start 02/10/19 at 08:00 Dextrose (D50w Syringe) 50 ml Q15M PRN IV .DECREASED GLUCOSE; Start 02/10/19 at 08:00 Insulin Human Regular 100 unit/ Sodium Chloride 100 ml @ 20 mls/hr PER PROTOCOL IV Last administered on 02/10/19at 13:18; Admin Dose 20 MLS/HR; Start 02/10/19 at 08:00 Heparin Sodium (Porcine) (Heparin (1000 Units/ml)) 4,500 unit AFTER DIALYSIS C ATHETER Last administered on 02/10/19at 13:28; Admin Dose 4,500 UNIT; Start 02/10/19 at 13:30 Potassium Chloride 10 meq/ Sodium Chloride 1,005 ml @ 40 mls/hr Q24H IV ; Start 02/10/19 at 16:30 VALENTINA MART Feb 10, 2019 15:45
--- NOTE | 2019-02-10 16:08 | RADRPT ---
Echocardiogram Report Patient Name: GOKUL DENGPatient ID: [id number] : 1970 (48y 3m)Study Date: 02/10/2019 2:27:11 PM Gender: Modestocession #: [id number] Tech: Anthony Colin [facility] Location: [address] Ref.Physician: MERVAT TORIBIO Height(Cm): BSA: Weight(Kg): Quality: AdequateOrder Physician: MERVAT TORIBIO Account #: Procedures: Echocardiographic Report: Transthoracic echocardiogram with complete 2D, M-Mode, and doppler examination. Indications: Abnormal EKG, DKA. Measurements: 2D/M Mode Doppler Measurement Value Normal Range Measurement Value Normal Range LVIDd 2D 5.4 [ 4.2 - 5.8 ] cm AV Peak Pedro 1.4 [ 100.0 - 170.0 ] cm/sec LVIDs 2D 4.4 [ 2.5 - 4.0 ] cm AV Peak PG 8.0 [ 2.0 - 9.0 ] mmHg LVPWd 2D 1.0 [ 0.6 - 1.0 ] cm LVOT Peak Pedro 1.0 [ 70.0 - 110.0 ] cm/sec IVSd 2D 0.9 [ 0.6 - 1.0 ] cm LVOT Peak PG 4.0 [ 2.0 - 6.0 ] mmHg AoR Diam 2D 2.2 [ 2.6 - 3.4 ] cm MV E Peak Pedro 1.1 [ 60.0 - 130.0 ] cm/sec EDV 2D 140.0 [ 62.0 - 150.0 ] ml MV A Peak Pedro 0.8 [ 100.0 - 120.0 ] cm/sec ESV 2D 89.6 [ 21.0 - 61.0 ] ml MV E/A 1.3 [ 0.8 - 1.5 ] ratio EF 2D 36.0 [ 52.0 - 72.0 ] percent MV Decel Time 113 [ 104 - 258 ] msec LA Dimen 2D 3.7 [ 3.0 - 4.0 ] cm Lat E` Pedro 0.1 [ 10.0 - 15.0 ] cm/sec Lateral E/E` 9.7 [ 1.0 - 2.0 ] ratio Med E` Pedro 0.1 cm/sec MV E/A 1.3 [ 0.8 - 1.5 ] ratio TR Peak Pedro 2.7 [ 100.0 - 280.0 ] cm/sec TR Peak PG 29.0 mmHg RVSP 39.0 [ 10.0 - 36.0 ] mmHg Findings: Left Ventricle: Lower limits of normal systolic function. Normal left ventricular cavity size. Normal left ventricular wall thickness. Ejection fraction is visually estimated at 50 %. Tissue Doppler/Mitral Doppler indices are within normal limits. Right Ventricle: Mild enlargement of right ventricle. Mild right ventricular hypokinesis. Left Atrium: The left atrium is normal in size. Right Atrium: The right atrium is normal in size. Mitral Valve: Mild mitral leaflet calcification. Mild mitral annular calcification. Trace mitral regurgitation. Aortic Valve: No significant aortic stenosis or insufficiency. Aortic cusps appear mildly calcified. Tricuspid Valve: Normal appearance of the tricuspid valve. The estimated Peak RVSP is 39 mmHg. There is mild tricuspid regurgitation. Pericardium: Normal pericardium with no significant pericardial effusion. There is an anterior echo free space consistent with epicardial fat pad. Aorta: Normal aortic root. IVC: Normal size with poor respiratory collapse consistent with elevated right atrial pressure. Conclusions: Lower limits of normal systolic function. Normal left ventricular cavity size. Normal left ventricular wall thickness. Ejection fraction is visually estimated at 50 %. Tissue Doppler/Mitral Doppler indices are within normal limits. Mild mitral leaflet calcification. Mild mitral annular calcification. Trace mitral regurgitation. No significant aortic stenosis or insufficiency. Aortic cusps appear mildly calcified. Normal appearance of the tricuspid valve. The estimated Peak RVSP is 39 mmHg. There is mild tricuspid regurgitation. Normal pericardium with no significant pericardial effusion. There is an anterior echo free space consistent with epicardial fat pad. Electronically Signed By: Isauro Alicia 2019-02-10 16:07:25 PDT
[2019-02-10] MEDS ORDERED: POTASSIUM CHLORIDE 10 MEQ in SOD CHLORIDE 0.9% 1,000 ML IV SCH (16:30)
--- NOTE | 2019-02-10 17:57 | CONS ---
Assessment/Plan Assessment/Plan Hospital Course (Demo Recall) 1. Abnormal EKG secondary to severe hyperkalemia, rule out acute [place] 2. Diabetic ketoacidosis and severe hyperglycemia 3. Height hyponatremia secondary to above 4. Cardiomyopathy 5. History of hypertension 6. Severe hyperkalemia of more than 9 7. Encephalopathy 8. Severe hyperglycemia and hyperosmolar coma/encephalopathy Recommendations: We will check the cardiac enzymes. Correction of potassium as per renal. Leg swelling: Hyponatremia correction as per renal. We will closely monitor him on telemetry in ICU.. Patient is currently on insulin drip in ICU. Repeat EKG have shown resolution of wide-complex rhythm. Monitor closely. Thank you for this referral. We will continue to follow along with you SUPRIYA PRITCHARD MD [facility] Consultation Date/Type/Reason Admit Date/Time Feb 10, 2019 at 06:26 Date of Consultation: Feb 10, 2019 Type of Consult Cardiology Reason for Consultation abnormal ECG Requesting Provider: MERVAT TORIBIO Date/Time of Note DATE: 02/10/19 TIME: 17:49 Hx of Present Illness Interventional cardiology consultation note Chief complaint: WEAKNESS Reason for consult: abnormal ECG History of present illness: Thank you for this referral. History was obtained from discussion with the staff and physician review of the chart. Patient himself at this point is altered and confused unable to provide any history to me. This is a 48-year-old male with a past medical history of diabetes, hypertension, end-stage renal disease on hemodialysis past 1 year. Probably nonischemic cardiomyopathy with EF of 20% per reports, gout, dyslipidemia, overweight, history of diabetic nephropathy, neuropathy, right toe wound, presented to the Emergency Department after being brought in from dialysis center for altered level of confusion. His EKG in the emergency room was markedly abnormal with wide complex. However his potassium was noted to be severely elevated at than 9.3. Repeat EKG after correction of his potassium shows that the QRS has normalized. Patient initially was unable to provide any history to me. He was also noted to be severely hyperkalemic glycemic and is on insulin drip now PAST MEDICAL HISTORY: 1. Type 1 diabetes. 2. End-stage renal disease on hemodialysis Sunday, Sunday, Sunday. 3. History of nonischemic cardiomyopathy per renal consultation report. Detail is not clear to me at this point 4. Dyslipidemia. 5. Hypertension. 6. Gout. 7. Diabetic retinopathy and nephropathy. ALLERGIES: NKDA PAST SURGICAL HISTORY: The patient had a right Perm-A-Cath placement. The patient also had a left AV fistula that was placed in August. SOCIAL HISTORY: No known report of any history of smoking, alcohol or any drug use, . MEDICATIONS: Using at home: 1. Coreg 6.25 b.i.d. 2. Amitriptyline. 3. Aspirin 81. 4. Gabapentin 100. 5. Tramadol. 6. Prilosec. 7. Insulin pump. 8. Allopurinol. Review of system: Patient denies all others except for above-mentioned Past Medical History Home Meds Reported Medications Insulin Lispro (Humalog) 100 Unit/1 Ml Cartridge, 100 UNIT SQ PUMP, EA PT HAS PUMP 01/14/19 Amitriptyline Hcl* (Amitriptyline Hcl*) 25 Mg Tablet, 25 MG PO QHS, #30 TAB 11/18/18 Tramadol Hcl* (Ultram*) 50 Mg Tablet, 50 MG PO Q6H PRN for PAIN, TAB 09/18/18 Omeprazole* (Omeprazole*) 40 Mg Capsule.dr, 40 MG PO DAILY, #30 CAP 09/18/18 Allopurinol* (Allopurinol*) 100 Mg Tablet, 100 MG PO DAILY, TAB 09/18/18 Aspirin (Low Dose Aspirin) 81 Mg Tablet.dr, 81 MG PO DAILY, #30 TAB 09/18/18 Carvedilol* (Carvedilol*) 6.25 Mg Tablet, 6.25 MG PO BID, #60 TAB 09/18/18 Gabapentin* (Gabapentin*) 100 Mg Capsule, 100 MG PO TID, #90 CAP 09/18/18 Medications Current Medications Ondansetron HCl (Zofran Inj) 4 mg Q6H PRN IV NAUSEA AND/OR VOMITING; Start 02/10/19 at 07:30 Albuterol (Proventil 0.083% (Neb)) 2.5 mg Q4H RESP THERAPY NEB Last administered on 02/10/19at 17:08; Admin Dose 2.5 MG; Start 02/10/19 at 09:00 Ipratropium Blaine (Atrovent 0.02% (Neb)) 0.5 mg Q4H RESP THERAPY NEB Last administered on 02/10/19at 17:08; Admin Dose 0.5 MG; Start 02/10/19 at 09:00 Acetaminophen (Tylenol Liquid) 650 mg Q6H PRN PO PAIN LEVEL 1-3 OR FEVER; Start 02/10/19 at 07:30 Heparin Sodium (Porcine) (Heparin (5000 Units/1ml)) 5,000 unit Q8 SC Last administered on 02/10/19at 13:38; Admin Dose 5,000 UNIT; Start 02/10/19 at 07:30 Diagnostic Test (Pha) (Accu-Chek) 1 ea Q1H XX Last administered on 02/10/19at 17:09; Admin Dose 1 EA; Start 02/10/19 at 08:00 Miscellaneous Information (* Miscellaneous Pharmacy Order) Treatment of Hypoglycemia: 1.BG 51... Per protocol XX ; Start 02/10/19 at 08:00 Dextrose (D50w Syringe) 25 ml Q15M PRN IV .DECREASED GLUCOSE; Start 02/10/19 at 08:00 Dextrose (D50w Syringe) 50 ml Q15M PRN IV .DECREASED GLUCOSE; Start 02/10/19 at 08:00 Insulin Human Regular 100 unit/ Sodium Chloride 100 ml @ 20 mls/hr PER PROTOCOL IV Last administered on 02/10/19at 13:18; Admin Dose 20 MLS/HR; Start 02/10/19 at 08:00 Heparin Sodium (Porcine) (Heparin (1000 Units/ml)) 4,500 unit AFTER DIALYSIS CATHETER Last administered on 02/10/19at 13:28; Admin Dose 4,500 UNIT; Start 02/10/19 at 13:30 Potassium Chloride 10 meq/ Sodium Chloride 1,005 ml @ 40 mls/hr Q24H IV Last administered on 02/10/19at 16:23; Admin Dose 40 MLS/HR; Start 02/10/19 at 16:30 Allergies: Coded Allergies: No Known Allergy (Unverified , 01/14/19) Past Surgical History Past Surgical Hx: appendectomy, endoscopy, other Social History Smoking Status: Never smoker Exam/Review of Systems Vital Signs Vitals Vital Signs Date Temp Pulse Resp B/P (MAP) Pulse Ox O2 O2 Flow FiO2 Time Delivery Rate 02/10/19 2.0 17:17 02/10/19 105 14 98 Nasal 17:13 Cannula 02/10/19 98.7 148/87 16:00 (107) 02/10/19 36 07:00 Exam Exam General: no acute distress HEENT: NC/AT. pupils are equal. round. NECK: . no stridor. CV: RRR. systolic murmur; no gallop or rubs. PULM: no wheezing or rhonchi. GI: SOFT, NT, ND, no rebound or guarding Extremity: trace B/L LE edema. no clubbing. neuro: Lethargic and confused. Does not answer my question appropriately Psych: calm rectal: deferred EKG done February 10, 2019 at 5:26 AM which was personally reviewed showed idioventricular rhythm EKG 706 showed normal sinus rhythm with frequent PACs. The vertical conduction delay Labs Result Diagram: 02/10/19 0513 02/10/19 1622 Results 24hrs Laboratory Tests Test 02/10/19 05:12 02/10/19 05:13 02/10/19 05:23 02/10/19 06:00 Bedside Glucose > 595 *H > 595 *H White Blood Count 12.9 H Red Blood Count 3.94 L Hemoglobin 12.7 L Hematocrit 44.2 Mean Corpuscular 112.2 H Volume Mean Corpuscular 32.2 Hemoglobin Mean Corpuscular 28.7 L Hemoglobin Concen t Red Cell 15.1 H Distribution Width Platelet Count 249 # Mean Platelet 12.8 H Volume Immature 0.500 H Granulocytes % Neutrophils % 93.3 H Lymphocytes % 2.0 L Monocytes % 3.9 Eosinophils % 0.0 Basophils % 0.3 Nucleated Red 0.0 Blood Cells % Immature 0.070 H Granulocytes # Neutrophils # 12.0 H Lymphocytes # 0.3 L Monocytes # 0.5 Eosinophils # 0.0 Basophils # 0.0 Nucleated Red 0.0 Blood Cells # Sodium Level 106 *L Potassium Level 9.3 *H Chloride Level 75 L Carbon Dioxide 15 L Level Anion Gap 16 H Blood Urea 55 H Nitrogen Creatinine 5.02 H Est Glomerular 12 L Filtrat Rate mL/min Glucose Level 1728 *H Hemoglobin A1c 11.0 H Calcium Level 9.0 Phosphorus Level 7.7 H Magnesium Level 1.7 Hepatitis B NEGATIVE Surface Antigen Hepatitis B Core NEGATIVE Total Antibody Hepatitis C NEGATIVE Antibody Blood Gas Blood venous Specimen Source Arterial Blood 02/10/2019 5:26:1 Date Drawn 0 AM Arterial Blood VENOUS LINE Gas Puncture Site Bradley Test N/A Venous Blood pH 7.186 *L Venous Blood pCO2 38.5 (Temp Corrected) Venous Blood pO2 37.9 H (Temp Corrected) Venous Blood HCO3 14.2 L Venous Blood 58.7 Oxygen Saturation Venous Blood Base -13.2 L Excess Venous Blood 13.5 Total Hemoglobin Venous Blood 58.1 Oxyhemoglobin Venous Blood 0.3 Methemoglobin Carboxyhemoglobin 0.8 Blood Gas 37.0 Temperature Blood Gas ROOM AIR Modality FiO2 21.0 Blood Gas S. Critical Value EMILY MACARIO Read Back Blood Gas MM Notified Whom Blood Gas 02/10/2019 5:32:0 Notified Time 6 AM Test 02/10/19 06:14 02/10/19 06:57 02/10/19 07:40 02/10/19 08:19 Bedside Glucose > 595 *H > 595 *H > 595 *H Sodium Level 112 *L Potassium Level 6.8 #*H Chloride Level 79 L Carbon Dioxide 17 L Level Anion Gap 16 H Blood Urea 57 H Nitrogen Creatinine 4.95 H Est Glomerular 13 L Filtrat Rate mL/min Glucose Level 1703 *H Calcium Level 9.6 Phosphorus Level 8.6 H Magnesium Level 1.9 Triglycerides 79 Level Cholesterol Level 202 H LDL Cholesterol, 86 Calculated HDL Cholesterol 100 H Cholesterol/HDL 2.0 Ratio Test 02/10/19 08:43 02/10/19 09:48 02/10/19 10:25 02/10/19 10:59 Bedside Glucose > 595 *H > 595 *H > 595 *H Sodium Level 117 *L Potassium Level 4.8 # Chloride Level 84 L Carbon Dioxide 19 L Level Anion Gap 14 H Blood Urea 57 H Nitrogen Creatinine 4.91 H Est Glomerular 13 L Filtrat Rate mL/min Glucose Level 1345 *H Calcium Level 9.4 Phosphorus Level 5.5 #H Magnesium Level 1.9 Test 02/10/19 11:54 02/10/19 12:02 02/10/19 12:57 02/10/19 13:45 Bedside Glucose > 595 *H 433 *H 352 H Sodium Level 128 L Potassium Level 3.1 L Chloride Level 92 L Carbon Dioxide 25 Level Anion Gap 11 Blood Urea 33 #H Nitrogen Creatinine 2.83 #H Est Glomerular 24 L Filtrat Rate mL/min Glucose Level 628 #*H Calcium Level 9.0 Phosphorus Level 3.4 # Magnesium Level 1.9 Test 02/10/19 15:12 02/10/19 16:14 02/10/19 16:22 02/10/19 17:00 Bedside Glucose 285 H 188 116 Sodium Level 130 L Potassium Level 4.6 Chloride Level 94 L Carbon Dioxide 23 Level Anion Gap 13 Blood Urea 32 H Nitrogen Creatinine 3.41 H Est Glomerular 19 L Filtrat Rate mL/min Glucose Level 355 #H Calcium Level 9.8 Medications Medications Current Medications Ondansetron HCl (Zofran Inj) 4 mg Q6H PRN IV NAUSEA AND/OR VOMITING; Start 02/10/19 at 07:30 Albuterol (Proventil 0.083% (Neb)) 2.5 mg Q4H RESP THERAPY NEB Last administered on 02/10/19at 17:08; Admin Dose 2.5 MG; Start 02/10/19 at 09:00 Ipratropium [place] (Atrovent 0.02% (Neb)) 0.5 mg Q4H RESP THERAPY NEB Last administered on 02/10/19at 17:08; Admin Dose 0.5 MG; Start 02/10/19 at 09:00 Acetaminophen (Tylenol Liquid) 650 mg Q6H PRN PO PAIN LEVEL 1-3 OR FEVER; Start 02/10/19 at 07:30 Heparin Sodium (Porcine) (Heparin (5000 Units/1ml)) 5,000 unit Q8 SC Last administered on 02/10/19at 13:38; Admin Dose 5,000 UNIT; Start 02/10/19 at 07:30 Diagnostic Test (Pha) (Accu-Chek) 1 ea Q1H XX Last administered on 02/10/19at 17:09; Admin Dose 1 EA; Start 02/10/19 at 08:00 Miscellaneous Information (* Miscellaneous Pharmacy Order) Treatment of Hypoglycemia: 1.BG 51... Per protocol XX ; Start 02/10/19 at 08:00 Dextrose (D50w Syringe) 25 ml Q15M PRN IV .DECREASED GLUCOSE; Start 02/10/19 at 08:00 Dextrose (D50w Syringe) 50 ml Q15M PRN IV .DECREASED GLUCOSE; Start 02/10/19 at 08:00 Insulin Human Regular 100 unit/ Sodium Chloride 100 ml @ 20 mls/hr PER PROTOCOL IV Last administered on 02/10/19at 13:18; Admin Dose 20 MLS/HR; Start 02/10/19 at 08:00 Heparin Sodium (Porcine) (Heparin (1000 Units/ml)) 4,500 unit AFTER DIALYSIS CATHETER Last administered on 02/10/19at 13:28; Admin Dose 4,500 UNIT; Start 02/10/19 at 13:30 Potassium Chloride 10 meq/ Sodium Chloride 1,005 ml @ 40 mls/hr Q24H IV Last administered on 02/10/19at 16:23; Admin Dose 40 MLS/HR; Start 02/10/19 at 16:30 SUPRIYA PRITCHARD MD Feb 10, 2019 17:56
[2019-02-10] MEDS ORDERED: GLUCOSE GEL 15 GRAM TUBE PO PRN ×2 (18:30)
[2019-02-10] MEDS ORDERED: GLUCAGON 1 MG INJ IM PRN (18:30)
[2019-02-10] MEDS ORDERED: GLUCOSE GEL 15 GRAM TUBE BUCCAL PRN (18:30)
[2019-02-10] MEDS ORDERED: INSULIN ASPART [NOVOLOG] 3 ML PEN SC SCH ×2 (19:00→21:00)
--- NOTE | 2019-02-10 19:03 | CONS ---
Assessment/Plan Assessment/Plan Problems: (1) Diabetic ketoacidosis Status: Resolved Qualifiers: Qualified Codes: E13.10 - Other specified diabetes mellitus with ketoacidosis without coma (2) Diabetes mellitus type 1 with complications Onset Date: ~ 12/1979 Status: Chronic Comment: Pt. w/ T1DM OOC as has been common for him. He is on an insulin pump which is new since I last saw him. There is no way that his BG was in the 150 mg/dL range yesterday and he had BG > 1700 mg/dL w/ [Na] 108 this am. It cannot possibly rise that quickly without some dilution along the way. A1c is 11% indicating this is a chronic problem but that he is rarely, if ever, as high as we witnessed today. Once he is out of hyperglycemia, I recommend we try controlling his glucose with his insulin pump and see if it is even functioning to keep BG under control. (3) H/O noncompliance with medical treatment, presenting hazards to health Status: Chronic Comment: See above. Consultation Date/Type/Reason Admit Date/Time Feb 10, 2019 at 06:26 Date of Consultation: Feb 10, 2019 Type of Consult Endocrinology Reason for Consultation BG > 1700 mg/dL Requesting Provider: PRANAV CALDERON Date/Time of Note DATE: 02/10/19 TIME: 18:51 Hx of Present Illness 48 y/o H M w/ h/o T1DM w/ nephropathy and neuropathy, HTN, hyperlipidemia, GERD, hyperuricemia, systolic CHF w/ EF 20%, ESRD in [facility] until this am when he arrived for his scheduled HD session. Pt. reports that he did not miss HD 3 days ago. Reports that yesterday his BG was in the 150 mg/dL range. However, when he got to HD this am was very weak and could not walk. Was sitting outside HD center unable to go inside. Ambulance called and pt. brought to [facility] where he was found to have BG 1,728 mg/dL, Na 106, K 9.3, CO2 15 w/ mildly open AG. EKG sinusoidal. Treated w/ bicarbonate, calcium, insulin, and albuterol. Unable to swallow kayexalate. Nephrology called for emergency HD. Pt. transferred to ICU. Insulin drip started at 0600. At 0830 BG still > 1700 mg/dL. Endo consulted. Constitutional: No no complaints (weak) Eyes: no complaints ENT: no complaints Respiratory: no complaints Cardiovascular: no complaints Gastrointestinal: no complaints Genitourinary: no complaints Musculoskeletal: no complaints Neurologic: no complaints Past Medical History Medical History: congestive heart failure (systolic), diabetes, GERD, high cholesterol, hypertension, renal disease, other (hyperuricemia) Home Meds Reported Medications Insulin Lispro (Humalog) 100 Unit/1 Ml Cartridge, 100 UNIT SQ PUMP, EA PT HAS PUMP 01/14/19 Amitriptyline Hcl* (Amitriptyline Hcl*) 25 Mg Tablet, 25 MG PO QHS, #30 TAB 11/18/18 Tramadol Hcl* (Ultram*) 50 Mg Tablet, 50 MG PO Q6H PRN for PAIN, TAB 09/18/18 Omeprazole* (Omeprazole*) 40 Mg Capsule.dr, 40 MG PO DAILY, #30 CAP 09/18/18 Allopurinol* (Allopurinol*) 100 Mg Tablet, 100 MG PO DAILY, TAB 09/18/18 Aspirin (Low Dose Aspirin) 81 Mg Tablet.dr, 81 MG PO DAILY, #30 TAB 09/18/18 Carvedilol* (Carvedilol*) 6.25 Mg Tablet, 6.25 MG PO BID, #60 TAB 09/18/18 Gabapentin* (Gabapentin*) 100 Mg Capsule, 100 MG PO TID, #90 CAP 09/18/18 Medications Current Medications Ondansetron HCl (Zofran Inj) 4 mg Q6H PRN IV NAUSEA AND/OR VOMITING; Start 02/10/19 at 07:30 Albuterol (Proventil 0.083% (Neb)) 2.5 mg Q4H RESP THERAPY NEB Last administered on 02/10/19at 17:08; Admin Dose 2.5 MG; Start 02/10/19 at 09:00 Ipratropium [place] (Atrovent 0.02% (Neb)) 0.5 mg Q4H RESP THERAPY NEB Last administered on 02/10/19at 17:08; Admin Dose 0.5 MG; Start 02/10/19 at 09:00 Acetaminophen (Tylenol Liquid) 650 mg Q6H PRN PO PAIN LEVEL 1-3 OR FEVER; Start 02/10/19 at 07:30 Heparin Sodium (Porcine) (Heparin (5000 Units/1ml)) 5,000 unit Q8 SC Last administered on 02/10/19at 13:38; Admin Dose 5,000 UNIT; Start 02/10/19 at 07:30 Diagnostic Test (Pha) (Accu-Chek) 1 ea Q1H XX Last administered on 02/10/19at 18:00; Admin Dose 1 EA; Start 02/10/19 at 08:00 Miscellaneous Information (* Miscellaneous Pharmacy Order) Treatment of Hypoglycemia: 1.BG 51... Per protocol XX ; Start 02/10/19 at 08:00 Dextrose (D50w Syringe) 25 ml Q15M PRN IV .DECREASED GLUCOSE; Start 02/10/19 at 08:00 Dextrose (D50w Syringe) 50 ml Q15M PRN IV .DECREASED GLUCOSE; Start 02/10/19 at 08:00 Insulin Human Regular 100 unit/ Sodium Chloride 100 ml @ 20 mls/hr PER PROTOCOL IV Last administered on 02/10/19at 13:18; Admin Dose 20 MLS/HR; Start 02/10/19 at 08:00; Status Hold Heparin Sodium (Porcine) (Heparin (1000 Units/ml)) 4,500 unit AFTER DIALYSIS CATHETER Last administered on 02/10/19at 13:28; Admin Dose 4,500 UNIT; Start 02/10/19 at 13:30 Potassium Chloride 10 meq/ Sodium Chloride 1,005 ml @ 40 mls/hr Q24H IV Last administered on 02/10/19at 16:23; Admin Dose 40 MLS/HR; Start 02/10/19 at 16:30 Insulin Aspart (Novolog Insulin Pen) 7 unit WITH MEALS SC ; Start 02/11/19 at 07:35 Miscellaneous Information 1 ea NOTE XX ; Start 02/10/19 at 18:30 Glucose (Glutose) 15 gm Q15M PRN PO DECREASED GLUCOSE; Start 02/10/19 at 18:30 Glucose (Glutose) 22.5 gm Q15M PRN PO DECREASED GLUCOSE; Start 02/10/19 at 18:30 Dextrose (D50w Syringe) 25 ml Q15M PRN IV DECREASED GLUCOSE; Start 02/10/19 at 18:30 Dextrose (D50w Syringe) 50 ml Q15M PRN IV DECREASED GLUCOSE; Start 02/10/19 at 18:30 Glucagon (Glucagen) 1 mg Q15M PRN IM DECREASED GLUCOSE; Start 02/10/19 at 18:30 Glucose (Glutose) 15 gm Q15M PRN BUCCAL DECREASED GLUCOSE; Start 02/10/19 at 18:30 Allergies: Coded Allergies: No Known Allergy (Unverified , 01/14/19) Past Surgical History Past Surgical Hx: appendectomy, endoscopy, other (AV fistula) Family History Significant Family History: diabetes (T2 in [place]), other (pulmonary fibrosis) Social History b. 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, no children Alcohol Use: sober (used to drink socially) Smoking Status: Former smoker (used to smoke socially) Drug Use: marijuana (in his youth), other (methamphetamine which he needs to improve his energy/fatigue) Exam/Review of Systems Exam Vitals Vital Signs Date Temp Pulse Resp B/P (MAP) Pulse Ox O2 O2 Flow FiO2 Time Delivery Rate 02/10/19 102 14 134/60 93 Nasal 18:00 (84) Cannula 02/10/19 2.0 17:17 02/10/19 98.7 16:00 02/10/19 36 07:00 Constitutional: well developed; No alert (lethargic) Psych: confusion Eyes: nl conjunctiva, EOMI, nl lids, nl sclera, PERRL ENMT: nl external ears & nose, mucosa pink and moist Neck: supple, non-tender; No bruits, No masses, No thyromegaly Respiratory: clear to auscultation, normal air movement Cardiovascular: regular rate and rhythm, nl pulses; No edema, No murmurs/extra sounds, No rub Gastrointestinal: soft, nl liver, spleen, non-tender, bowel sounds; No mass, No rebound or guarding Musculoskeletal: nl extremities to inspection Extremities: normal pulses; No cyanosis, No clubbing, No edema 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: confused, lethargic Additional Comments Bedside Glucose - 72 Hours Test 02/10/19 05:12 02/10/19 06:00 02/10/19 06:14 02/10/19 06:57 Bedside > 595 > 595 > 595 > 595 Glucose mg/dL (70-220) mg/dL (70-220) mg/dL (70-220) mg/dL (70-220) *H *H *H *H Test 02/10/19 07:40 02/10/19 08:43 02/10/19 09:48 02/10/19 10:59 Bedside > 595 > 595 > 595 > 595 Glucose mg/dL (70-220) mg/dL (70-220) mg/dL (70-220) mg/dL (70-220) *H *H *H *H Test 02/10/19 11:54 02/10/19 12:57 02/10/19 13:45 02/10/19 15:12 Bedside > 595 433 352 285 Glucose mg/dL (70-220) mg/dL (70-220) mg/dL (70-220) mg/dL (70-220) *H *H H H Test 02/10/19 16:14 02/10/19 17:00 02/10/19 17:59 Bedside 188 116 73 Glucose mg/dL (70-220) mg/dL (70-220) mg/dL (70-220) Results Result Diagram: 02/10/19 0513 02/10/19 1622 Results 24hrs Laboratory Tests Test 02/10/19 05:12 02/10/19 05:13 02/10/19 05:23 02/10/19 06:00 Bedside Glucose > 595 *H > 595 *H White Blood Count 12.9 H Red Blood Count 3.94 L Hemoglobin 12.7 L Hematocrit 44.2 Mean Corpuscular 112.2 H Volume Mean Corpuscular 32.2 Hemoglobin Mean Corpuscular 28.7 L Hemoglobin Concen t Red Cell 15.1 H Distribution Width Platelet Count 249 # Mean Platelet 12.8 H Volume Immature 0.500 H Granulocytes % Neutrophils % 93.3 H Lymphocytes % 2.0 L Monocytes % 3.9 Eosinophils % 0.0 Basophils % 0.3 Nucleated Red 0.0 Blood Cells % Immature 0.070 H Granulocytes # Neutrophils # 12.0 H Lymphocytes # 0.3 L Monocytes # 0.5 Eosinophils # 0.0 Basophils # 0.0 Nucleated Red 0.0 Blood Cells # Sodium Level 106 *L Potassium Level 9.3 *H Chloride Level 75 L Carbon Dioxide 15 L Level Anion Gap 16 H Blood Urea 55 H Nitrogen Creatinine 5.02 H Est Glomerular 12 L Filtrat Rate mL/min Glucose Level 1728 *H Hemoglobin A1c 11.0 H Calcium Level 9.0 Phosphorus Level 7.7 H Magnesium Level 1.7 Hepatitis B NEGATIVE Surface Antigen Hepatitis B Core NEGATIVE Total Antibody Hepatitis C NEGATIVE Antibody Blood Gas Blood venous Specimen Source Arterial Blood 02/10/2019 5:26:1 Date Drawn 0 AM Arterial Blood VENOUS LINE Gas Puncture Site [place] Test N/A Venous Blood pH 7.186 *L Venous Blood pCO2 38.5 (Temp Corrected) Venous Blood pO2 37.9 H (Temp Corrected) Venous Blood HCO3 14.2 L Venous Blood 58.7 Oxygen Saturation Venous Blood Base -13.2 L Excess Venous Blood 13.5 Total Hemoglobin Venous Blood 58.1 Oxyhemoglobin Venous Blood 0.3 Methemoglobin Carboxyhemoglobin 0.8 Blood Gas 37.0 Temperature Blood Gas ROOM AIR Modality FiO2 21.0 Blood Gas S. Critical Value EMILY MACARIO Read Back Blood Gas MM Notified Whom Blood Gas 02/10/2019 5:32:0 Notified Time 6 AM Test 02/10/19 06:14 02/10/19 06:57 02/10/19 07:40 02/10/19 08:19 Bedside Glucose > 595 *H > 595 *H > 595 *H Sodium Level 112 *L Potassium Level 6.8 #*H Chloride Level 79 L Carbon Dioxide 17 L Level Anion Gap 16 H Blood Urea 57 H Nitrogen Creatinine 4.95 H Est Glomerular 13 L Filtrat Rate mL/min Glucose Level 1703 *H Calcium Level 9.6 Phosphorus Level 8.6 H Magnesium Level 1.9 Triglycerides 79 Level Cholesterol Level 202 H LDL Cholesterol, 86 Calculated HDL Cholesterol 100 H Cholesterol/HDL 2.0 Ratio Test 02/10/19 08:43 02/10/19 09:48 02/10/19 10:25 02/10/19 10:59 Bedside Glucose > 595 *H > 595 *H > 595 *H Sodium Level 117 *L Potassium Level 4.8 # Chloride Level 84 L Carbon Dioxide 19 L Level Anion Gap 14 H Blood Urea 57 H Nitrogen Creatinine 4.91 H Est Glomerular 13 L Filtrat Rate mL/min Glucose Level 1345 *H Calcium Level 9.4 Phosphorus Level 5.5 #H Magnesium Level 1.9 Test 02/10/19 11:54 02/10/19 12:02 02/10/19 12:57 02/10/19 13:45 Bedside Glucose > 595 *H 433 *H 352 H Sodium Level 128 L Potassium Level 3.1 L Chloride Level 92 L Carbon Dioxide 25 Level Anion Gap 11 Blood Urea 33 #H Nitrogen Creatinine 2.83 #H Est Glomerular 24 L Filtrat Rate mL/min Glucose Level 628 #*H Calcium Level 9.0 Phosphorus Level 3.4 # Magnesium Level 1.9 Test 02/10/19 15:12 02/10/19 16:14 02/10/19 16:22 02/10/19 17:00 Bedside Glucose 285 H 188 116 Sodium Level 130 L Potassium Level 4.6 Chloride Level 94 L Carbon Dioxide 23 Level Anion Gap 13 Blood Urea 32 H Nitrogen Creatinine 3.41 H Est Glomerular 19 L Filtrat Rate mL/min Glucose Level 355 #H Calcium Level 9.8 Test 02/10/19 17:59 Bedside Glucose 73 Medications Medication Current Medications Ondansetron HCl (Zofran Inj) 4 mg Q6H PRN IV NAUSEA AND/OR VOMITING; Start 02/10/19 at 07:30 Albuterol (Proventil 0.083% (Neb)) 2.5 mg Q4H RESP THERAPY NEB Last admini stered on 02/10/19at 17:08; Admin Dose 2.5 MG; Start 02/10/19 at 09:00 Ipratropium [place] (Atrovent 0.02% (Neb)) 0.5 mg Q4H RESP THERAPY NEB Last administered on 02/10/19at 17:08; Admin Dose 0.5 MG; Start 02/10/19 at 09:00 Acetaminophen (Tylenol Liquid) 650 mg Q6H PRN PO PAIN LEVEL 1-3 OR FEVER; Start 02/10/19 at 07:30 Heparin Sodium (Porcine) (Heparin (5000 Units/1ml)) 5,000 unit Q8 SC Last a dministered on 02/10/19at 13:38; Admin Dose 5,000 UNIT; Start 02/10/19 at 07:30 Diagnostic Test (Pha) (Accu-Chek) 1 ea Q1H XX Last administered on 02/10/19at 18:00; Admin Dose 1 EA; Start 02/10/19 at 08:00 Miscellaneous Information (* Miscellaneous Pharmacy Order) Treatment of Hypoglycemia: 1.BG 51... Per protocol XX ; Start 02/10/19 at 08:00 Dextrose (D50w Syringe) 25 ml Q15M PRN IV .DECREASED GLUCOSE; Start 02/10/19 at 08:00 Dextrose (D50w Syringe) 50 ml Q15M PRN IV .DECREASED GLUCOSE; Start 02/10/19 at 08:00 Insulin Human Regular 100 unit/ Sodium Chloride 100 ml @ 20 mls/hr PER PROTOCOL IV Last administered on 02/10/19at 13:18; Admin Dose 20 MLS/HR; Start 02/10/19 at 08:00; Status Hold Heparin Sodium (Porcine) (Heparin (1000 Units/ml)) 4,500 unit AFTER DIALYSIS CATHETER Last administered on 02/10/19at 13:28; Admin Dose 4,500 UNIT; Start 02/10/19 at 13:30 Potassium Chloride 10 meq/ Sodium Chloride 1,005 ml @ 40 mls/hr Q24H IV Last administered on 02/10/19at 16:23; Admin Dose 40 MLS/HR; Start 02/10/19 at 16:30 Insulin Aspart (Novolog Insulin Pen) 7 unit WITH MEALS SC ; Start 02/11/19 at 07:35 Miscellaneous Information 1 ea NOTE XX ; Start 02/10/19 at 18:30 Glucose (Glutose) 15 gm Q15M PRN PO DECREASED GLUCOSE; Start 02/10/19 at 18:30 Glucose (Glutose) 22.5 gm Q15M PRN PO DECREASED GLUCOSE; Start 02/10/19 at 18:30 Dextrose (D50w Syringe) 25 ml Q15M PRN IV DECREASED GLUCOSE; Start 02/10/19 at 18:30 Dextrose (D50w Syringe) 50 ml Q15M PRN IV DECREASED GLUCOSE; Start 02/10/19 at 18:30 Glucagon (Glucagen) 1 mg Q15M PRN IM DECREASED GLUCOSE; Start 02/10/19 at 18:30 Glucose (Glutose) 15 gm Q15M PRN BUCCAL DECREASED GLUCOSE; Start 02/10/19 at 18:30 ANDRES HIGUERA MD Feb 10, 2019 19:02
[2019-02-10] MEDS ORDERED: ACCU-CHEK XX SCH (21:00)
[2019-02-10] MEDS ORDERED: [UNRECOGNIZED DRUG - OTHER] SC SCH (21:00)
[2019-02-11] VITALS (24 sets, daily range): BP systolic 104–171; BP diastolic 53–135; PULSE 97–113; RESP 9–32
[2019-02-11] MEDS ORDERED: INSULIN ASPART [NOVOLOG] 3 ML PEN SC ONE (01:00)
[2019-02-11] MEDS ORDERED: ACCU-CHEK XX ONE (01:00)
[2019-02-11] MEDS: IPRATROPIUM (NEB) 0.5 MG/2.5 ML AMP NEB SCH ×3 (01:22→08:39)
[2019-02-11] MEDS: ALBUTEROL 0.083% (NEB) 2.5 MG/3 ML AMP NEB SCH ×3 (01:23→08:39)
[2019-02-11] MEDS ORDERED: ACCU-CHEK XX SCH ×2 (02:00→17:00)
[2019-02-11] MEDS ORDERED: DEXTROSE 50% 50 ML SYRINGE IV PRN ×2 (03:30)
[2019-02-11] MEDS: ACCU-CHEK XX SCH ×12 (03:30→21:08)
[2019-02-11] MEDS ORDERED: INSULIN HUMAN REGULAR 100 UNIT in SOD CHLORIDE 0.9% 99 ML IV SCH (04:00)
[2019-02-11] MEDS: HEPARIN 5,000 UNIT/1 ML VIAL SC SCH ×3 (06:23→21:12)
[2019-02-11] MEDS ORDERED: INSULIN ASPART [NOVOLOG] 3 ML PEN SC SCH ×4 (07:35→12:00)
--- NOTE | 2019-02-11 07:35 | CONS ---
Consult Date/Type/Reason Admit Date/Time Feb 10, 2019 at 06:26 Initial Consult Date 02/10/19 Type of Consultation: cv Requesting Provider: PRANAV CALDERON Date/Time of Note DATE: 02/11/19 TIME: 07:28 Subjective Interventional cardiology follow-up progress note Subjective: Discussed with the staff telemetry was reviewed. Patient remains in sinus rhythm. No chest pain or pressure. Patient is back on insulin drip in the ICU still. Appears to be less confused today though. No bleeding is reported His old records was reviewed. Patient has had a coronary angiography done about a year level in 2018 which showed no obstructive coronary artery disease Objective: General: no acute distress HEENT: NC/AT. pupils are equal. round. NECK: . no stridor. CV: RRR. systolic murmur; no gallop or rubs. PULM: no wheezing or rhonchi. GI: SOFT, NT, ND, no rebound or guarding Extremity: trace B/L LE edema. no clubbing. neuro: Drowsy sleepy but arousable responds appropriately oriented to person and place but not time. Psych: calm rectal: deferred EKG done February 10, 2019 at 5:26 AM which was personally reviewed showed idioventricular rhythm EKG 706 showed normal sinus rhythm with frequent PACs. The vertical conduction delay Echocardiogram done February 10, 2019 shows: Lower limits of normal systolic function. Normal left ventricular cavity size. Normal left ventricular wall thickness. Ejection fraction is visually estimated at 50 %. Tissue Doppler/Mitral Doppler indices are within normal limits. Mild mitral leaflet calcification. Mild mitral annular calcification. Trace mitral regurgitation. No significant aortic stenosis or insufficiency. Aortic cusps appear mildly calcified. Normal appearance of the tricuspid valve. The estimated Peak RVSP is 39 mmHg. There is mild tricuspid regurgitation. Normal pericardium with no significant pericardial effusion. There is an anterior echo free space consistent with epicardial fat pad. Objective Vitals Vital Signs Date Temp Pulse Resp B/P (MAP) Pulse Ox O2 O2 Flow FiO2 Time Delivery Rate 02/11/19 111 15 143/79 98 Room Air 06:00 (100) 02/11/19 2.0 04:49 02/11/19 98.6 04:00 02/10/19 36 07:00 Intake and Output 02/10/19 02/10/19 02/11/19 1515:00 23:00 07:00 IntakeIntake Total 1310 ml 380 ml 292 ml OutputOutput Total 1500 ml 800 ml 850 ml BalanceBalance -190 ml -420 ml -558 ml Results/Medications Result Diagram: 02/11/1952102/11/19 0522 Results 24 hrs Laboratory Tests Test 02/10/19 07:40 02/10/19 08:04 02/10/19 08:19 02/10/19 08:43 Bedside Glucose > 595 *H > 595 *H Hepatitis A IgM NON-REACTIVE Antibody Sodium Level 112 *L Potassium Level 6.8 #*H Chloride Level 79 L Carbon Dioxide 17 L Level Anion Gap 16 H Blood Urea Nitrogen 57 H Creatinine 4.95 H Est Glomerular 13 L Filtrat Rate mL/min Glucose Level 1703 *H Calcium Level 9.6 Phosphorus Level 8.6 H Magnesium Level 1.9 Triglycerides Level 79 Cholesterol Level 202 H LDL Cholesterol, 86 Calculated HDL Cholesterol 100 H Cholesterol/HDL 2.0 Ratio Test 02/10/19 09:48 02/10/19 10:25 02/10/19 10:59 02/10/19 11:54 Bedside Glucose > 595 *H > 595 *H > 595 *H Sodium Level 117 *L Potassium Level 4.8 # Chloride Level 84 L Carbon Dioxide 19 L Level Anion Gap 14 H Blood Urea Nitrogen 57 H Creatinine 4.91 H Est Glomerular 13 L Filtrat Rate mL/min Glucose Level 1345 *H Calcium Level 9.4 Phosphorus Level 5.5 #H Magnesium Level 1.9 Test 02/10/19 12:02 02/10/19 12:57 02/10/19 13:45 02/10/19 15:12 Sodium Level 128 L Potassium Level 3.1 L Chloride Level 92 L Carbon Dioxide 25 Level Anion Gap 11 Blood Urea Nitrogen 33 #H Creatinine 2.83 #H Est Glomerular 24 L Filtrat Rate mL/min Glucose Level 628 #*H Calcium Level 9.0 Phosphorus Level 3.4 # Magnesium Level 1.9 Bedside Glucose 433 *H 352 H 285 H Test 02/10/19 16:01 02/10/19 16:14 02/10/19 16:22 02/10/19 17:00 Creatine Kinase 1068 H Creatine Kinase 0.9 Index Creatinine Kinase 9.91 H MB (Mass) Troponin I 0.149 *H Bedside Glucose 188 116 Sodium Level 130 L Potassium Level 4.6 Chloride Level 94 L Carbon Dioxide 23 Level Anion Gap 13 Blood Urea Nitrogen 32 H Creatinine 3.41 H Est Glomerular 19 L Filtrat Rate mL/min Glucose Level 355 #H Calcium Level 9.8 Test 02/10/19 17:59 02/10/19 19:04 02/10/19 21:08 02/11/19 00:46 Bedside Glucose 73 52 L 196 365 H Test 02/11/19 02:59 02/11/19 04:17 02/11/19 05:21 02/11/19 05:22 Bedside Glucose 348 H 351 H 338 H White Blood Count 11.7 H Red Blood Count 3.96 L Hemoglobin 12.4 L Hematocrit 36.8 L Mean Corpuscular 92.9 Volume Mean Corpuscular 31.3 Hemoglobin Mean Corpuscular 33.7 Hemoglobin Concent Red Cell 14.2 Distribution Width Platelet Count 202 Mean Platelet 12.5 H Volume Immature 0.400 Granulocytes % Neutrophils % 84.6 H Lymphocytes % 9.4 L Monocytes % 5.0 Eosinophils % 0.3 Basophils % 0.3 Nucleated Red Blood 0.0 Cells % Immature 0.050 H Granulocytes # Neutrophils # 9.9 H Lymphocytes # 1.1 Monocytes # 0.6 Eosinophils # 0.0 Basophils # 0.0 Nucleated Red Blood 0.0 Cells # Sodium Level 130 L Potassium Level 4.2 Chloride Level 96 L Carbon Dioxide 25 Level Anion Gap 9 Blood Urea Nitrogen 34 H Creatinine 4.19 H Est Glomerular 15 L Filtrat Rate mL/min Glucose Level 398 H Calcium Level 9.0 Phosphorus Level 4.8 Magnesium Level 1.7 Creatine Kinase 684 H Creatine Kinase 0.9 Index Creatinine Kinase 5.89 H MB (Mass) Troponin I 0.120 Test 02/11/19 06:22 Bedside Glucose 302 H Home Meds Reported Medications Insulin Lispro (Humalog) 100 Unit/1 Ml Cartridge, 100 UNIT SQ PUMP, EA PT HAS PUMP 01/14/19 Amitriptyline Hcl* (Amitriptyline Hcl*) 25 Mg Tablet, 25 MG PO QHS, #30 TAB 11/18/18 Tramadol Hcl* (Ultram*) 50 Mg Tablet, 50 MG PO Q6H PRN for PAIN, TAB 09/18/18 Omeprazole* (Omeprazole*) 40 Mg Capsule.dr, 40 MG PO DAILY, #30 CAP 09/18/18 Allopurinol* (Allopurinol*) 100 Mg Tablet, 100 MG PO DAILY, TAB 09/18/18 Aspirin (Low Dose Aspirin) 81 Mg Tablet.dr, 81 MG PO DAILY, #30 TAB 09/18/18 Carvedilol* (Carvedilol*) 6.25 Mg Tablet, 6.25 MG PO BID, #60 TAB 09/18/18 Gabapentin* (Gabapentin*) 100 Mg Capsule, 100 MG PO TID, #90 CAP 09/18/18 Medications Current Medications Ondansetron HCl (Zofran Inj) 4 mg Q6H PRN IV NAUSEA AND/OR VOMITING; Start 02/10/19 at 07:30 Albuterol (Proventil 0.083% (Neb)) 2.5 mg Q4H RESP THERAPY NEB Last adminis tered on 02/11/19at 04:49; Admin Dose 2.5 MG; Start 02/10/19 at 09:00 Ipratropium [place] (Atrovent 0.02% (Neb)) 0.5 mg Q4H RESP THERAPY NEB Last administered on 02/11/19at 04:49; Admin Dose 0.5 MG; Start 02/10/19 at 09:00 Acetaminophen (Tylenol Liquid) 650 mg Q6H PRN PO PAIN LEVEL 1-3 OR FEVER; S tart 02/10/19 at 07:30 Heparin Sodium (Porcine) (Heparin (5000 Units/1ml)) 5,000 unit Q8 SC Last ad ministered on 02/11/19at 06:23; Admin Dose 5,000 UNIT; Start 02/10/19 at 07:30 Heparin Sodium (Porcine) (Heparin (1000 Units/ml)) 4,500 unit AFTER DIALYSIS CATHETER Last administered on 02/10/19at 13:28; Admin Dose 4,500 UNIT; Start 02/10/19 at 13:30 Potassium Chloride 10 meq/ Sodium Chloride 1,005 ml @ 40 mls/hr Q24H IV Last administered on 02/10/19at 16:23; Admin Dose 40 MLS/HR; Start 02/10/19 at 16:30 Miscellaneous Information 1 ea NOTE XX ; Start 02/10/19 at 18:30 Glucose (Glutose) 15 gm Q15M PRN PO DECREASED GLUCOSE; Start 02/10/19 at 18:30 Glucose (Glutose) 22.5 gm Q15M PRN PO DECREASED GLUCOSE; Start 02/10/19 at 18:30 Dextrose (D50w Syringe) 25 ml Q15M PRN IV DECREASED GLUCOSE; Start 02/10/19 at 18:30 Dextrose (D50w Syringe) 50 ml Q15M PRN IV DECREASED GLUCOSE; Start 02/10/19 at 18:30 Glucagon (Glucagen) 1 mg Q15M PRN IM DECREASED GLUCOSE; Start 02/10/19 at 18:30 Glucose (Glutose) 15 gm Q15M PRN BUCCAL DECREASED GLUCOSE; Start 02/10/19 at 18:30 Diagnostic Test (Pha) (Accu-Chek) 1 ea Q1H XX Last administered on 02/11/19at 06:24; Admin Dose 1 EA; Start 02/11/19 at 03:30 Insulin Human Regular 100 unit/ Sodium Chloride 100 ml @ 0 mls/hr PER PROTOCOL IV Last administered on 02/11/19at 04:23; Admin Dose 4 MLS/HR; Start 02/11/19 at 04:00 Miscellaneous Information (* Miscellaneous Pharmacy Order) Treatment of Hypoglycemia: 1.BG 51... Per protocol XX ; Start 02/11/19 at 03:30 Dextrose (D50w Syringe) 25 ml Q15M PRN IV .DECREASED GLUCOSE; Start 02/11/19 at 03:30 Dextrose (D50w Syringe) 50 ml Q15M PRN IV .DECREASED GLUCOSE; Start 02/11/19 at 03:30 Assessment/Plan Hospital Course (Demo Recall) 1. Abnormal EKG secondary to severe hyperkalemia, 2. Diabetic ketoacidosis and severe hyperglycemia 3. hyponatremia secondary to above 4. Cardiomyopathy: Ejection. Appears to have improved now 5. History of hypertension 6. Severe hyperkalemia of more than 9: Has been corrected with dialysis now 7. Encephalopathy 8. Severe hyperglycemia and hyperosmolar coma/encephalopathy: Currently on insulin drip 9. Mildly abnormal troponin secondary to above Recommendations: Correction of potassium as per renal. Hyponatremia correction as per renal. We will closely monitor him on telemetry in ICU.. Patient is currently on insulin drip in ICU. Repeat EKG have shown resolution of wide-complex rhythm. Monitor closely. 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 cont med therapy only Thank you for this referral. We will continue to follow along with you SUPRIYA PRITCHARD MD [facility] SUPRIYA PRITCHARD MD Feb 11, 2019 07:35
[2019-02-11] MEDS ORDERED: INSULIN GLARGINE [LANTus] (100 UNITS/ML) SYG SC SCH (09:00)
--- NOTE | 2019-02-11 11:05 | CONS ---
Assessment/Plan Assessment/Plan Assessment/Plan (Daily) 48-year-old male who presented with: 1. Severe diabetic ketoacidosis, on insulin drip. . Has questions and concerns about his vision.likley due to non compliance and insulin pump not working 2. Severe hyponatremia, likely combination pseudo with hyperglycemia. Sugar is 1728 plus excessive water intake due to hyperglycemia.improved 3. Severe hyperkalemia, likely secondary to acidosis, noncompliance. The patient has been noncompliant with his diet. 4. Acute encephalopathy, metabolic secondary to above, electrolyte changes, diabetic ketoacidosis. 5. Hyperlipidemia. 6. Nonischemic cardiomyopathy. 7. End-stage renal disease on hemodialysis. 8. Diabetic with complication of diabetic retinopathy, neuropathy and nephropathy. 9. EKG changes secondary to #1. 10. Gout. Plan - fluids to NS - taper off insulin gtt - lantus / lispro - HD tmw - vascular consult to eval fistula - na corrected appropiately Consultation Date/Type/Reason Admit Date/Time Feb 10, 2019 at 06:26 Initial Consult Date 02/10/19 Requesting Provider: PRANAV CALDERON Date/Time of Note DATE: 02/11/19 TIME: 11:03 24 HR Interval Summary Free Text/Dictation back on insulin gtt and lantus fs 120'S Exam/Review of Systems Exam Vitals Vital Signs Date Temp Pulse Resp B/P (MAP) Pulse Ox O2 O2 Flow FiO2 Time Delivery Rate 02/11/19 98.5 109 9 154/86 100 Nasal 10:00 (108) Cannula 02/11/19 2.0 08:39 02/10/19 36 07:00 Intake and Output 02/10/19 02/10/19 02/11/19 1515:00 23:00 07:00 IntakeIntake Total 1310 ml 380 ml 292 ml OutputOutput Total 1500 ml 800 ml 850 ml BalanceBalance -190 ml -420 ml -558 ml Exam gen: curled side of bed neck:supple lungs: clear abdomen: soft, non tender ext : no edema, blackish dis of toe noted rt permacath left fistula +bruit/ thrill Results Result Diagram: 02/11/19 0522 02/11/19521 Results 24hrs Laboratory Tests Test 02/10/19 11:54 02/10/19 12:02 02/10/19 12:57 02/10/19 13:45 Bedside Glucose > 595 *H 433 *H 352 H Sodium Level 128 L Potassium Level 3.1 L Chloride Level 92 L Carbon Dioxide Level 25 Anion Gap 11 Blood Urea Nitrogen 33 #H Creatinine 2.83 #H Est Glomerular 24 L Filtrat Rate mL/min Glucose Level 628 #*H Calcium Level 9.0 Phosphorus Level 3.4 # Magnesium Level 1.9 Test 02/10/19 15:12 02/10/19 16:01 02/10/19 16:14 02/10/19 16:22 Bedside Glucose 285 H 188 Creatine Kinase 1068 H Creatine Kinase 0.9 Index Creatinine Kinase MB 9.91 H (Mass) Troponin I 0.149 *H Sodium Level 130 L Potassium Level 4.6 Chloride Level 94 L Carbon Dioxide Level 23 Anion Gap 13 Blood Urea Nitrogen 32 H Creatinine 3.41 H Est Glomerular 19 L Filtrat Rate mL/min Glucose Level 355 #H Calcium Level 9.8 Test 02/10/19 17:00 02/10/19 17:59 02/10/19 19:04 02/10/19 21:08 Bedside Glucose 116 73 52 L 196 Test 02/11/19 00:46 02/11/19 02:59 02/11/19 04:17 02/11/19 05:21 Bedside Glucose 365 H 348 H 351 H 338 H Test 02/11/19 05:22 02/11/19 06:22 02/11/19 07:28 02/11/19 08:30 White Blood Count 11.7 H Red Blood Count 3.96 L Hemoglobin 12.4 L Hematocrit 36.8 L Mean Corpuscular 92.9 Volume Mean Corpuscular 31.3 Hemoglobin Mean Corpuscular 33.7 Hemoglobin Concent Red Cell 14.2 Distribution Width Platelet Count 202 Mean Platelet Volume 12.5 H Immature 0.400 Granulocytes % Neutrophils % 84.6 H Lymphocytes % 9.4 L Monocytes % 5.0 Eosinophils % 0.3 Basophils % 0.3 Nucleated Red Blood 0.0 Cells % Immature 0.050 H Granulocytes # Neutrophils # 9.9 H Lymphocytes # 1.1 Monocytes # 0.6 Eosinophils # 0.0 Basophils # 0.0 Nucleated Red Blood 0.0 Cells # Sodium Level 130 L Potassium Level 4.2 Chloride Level 96 L Carbon Dioxide Level 25 Anion Gap 9 Blood Urea Nitrogen 34 H Creatinine 4.19 H Est Glomerular 15 L Filtrat Rate mL/min Glucose Level 398 H Calcium Level 9.0 Phosphorus Level 4.8 Magnesium Level 1.7 Creatine Kinase 684 H Creatine Kinase 0.9 Index Creatinine Kinase MB 5.89 H (Mass) Troponin I 0.120 Bedside Glucose 302 H 223 H 136 Test 02/11/19 09:34 02/11/19 10:28 Bedside Glucose 115 125 Medications Medication Current Medications Ondansetron HCl (Zofran Inj) 4 mg Q6H PRN IV NAUSEA AND/OR VOMITING; Start 02/10/19 at 07:30 Albuterol (Proventil 0.083% (Neb)) 2.5 mg Q4H RESP THERAPY NEB Last administered on 02/11/19at 08:39; Admin Dose 2.5 MG; Start 02/10/19 at 09:00 Ipratropium [place] (Atrovent 0.02% (Neb)) 0.5 mg Q4H RESP THERAPY NEB Last administered on 02/11/19at 08:39; Admin Dose 0.5 MG; Start 02/10/19 at 09:00 Acetaminophen (Tylenol Liquid) 650 mg Q6H PRN PO PAIN LEVEL 1-3 OR FEVER; Start 02/10/19 at 07:30 Heparin Sodium (Porcine) (Heparin (5000 Units/1ml)) 5,000 unit Q8 SC Last administered on 02/11/19at 06:23; Admin Dose 5,000 UNIT; Start 02/10/19 at 07:30 Heparin Sodium (Porcine) (Heparin (1000 Units/ml)) 4,500 unit AFTER DIALYSIS CATHETER Last administered on 02/10/19at 13:28; Admin Dose 4,500 UNIT; Start 02/10/19 at 13:30 Miscellaneous Information 1 ea NOTE XX ; Start 02/10/19 at 18:30 Glucose (Glutose) 15 gm Q15M PRN PO DECREASED GLUCOSE; Start 02/10/19 at 18:30 Glucose (Glutose) 22.5 gm Q15M PRN PO DECREASED GLUCOSE; Start 02/10/19 at 18:30 Dextrose (D50w Syringe) 25 ml Q15M PRN IV DECREASED GLUCOSE; Start 02/10/19 at 18:30 Dextrose (D50w Syringe) 50 ml Q15M PRN IV DECREASED GLUCOSE; Start 02/10/19 at 18:30 Glucagon (Glucagen) 1 mg Q15M PRN IM DECREASED GLUCOSE; Start 02/10/19 at 18:30 Glucose (Glutose) 15 gm Q15M PRN BUCCAL DECREASED GLUCOSE; Start 02/10/19 at 18:30 Diagnostic Test (Pha) (Accu-Chek) 1 ea Q1H XX Last administered on 02/11/19at 10:28; Admin Dose 1 EA; Start 02/11/19 at 03:30 Insulin Human Regular 100 unit/ Sodium Chloride 100 ml @ 0 mls/hr PER PROTOCOL IV Last administered on 02/11/19at 04:23; Admin Dose 4 MLS/HR; Start 02/11/19 at 04:00 Miscellaneous Information (* Miscellaneous Pharmacy Order) Treatment of Hypoglycemia: 1.BG 51... Per protocol XX ; Start 02/11/19 at 03:30 Dextrose (D50w Syringe) 25 ml Q15M PRN IV .DECREASED GLUCOSE; Start 02/11/19 at 03:30 Dextrose (D50w Syringe) 50 ml Q15M PRN IV .DECREASED GLUCOSE; Start 02/11/19 at 03:30 Insulin Aspart (Novolog Insulin Pen) 9 unit WITH MEALS SC Last administered on 02/11/19at 08:50; Admin Dose 9 UNIT; Start 02/11/19 at 09:00 Insulin Glargine (Lantus) 27 units DAILY@0800 SC Last administered on 02/11/19at 09:36; Admin Dose 27 UNITS; Start 02/11/19 at 09:00 HARRY ARSHAD MD Feb 11, 2019 11:05
[2019-02-11] MEDS: SOD CHLORIDE 0.9% 1,000 ML IV SCH (11:12)
[2019-02-11] MEDS ORDERED: ALBUTEROL/IPRATROPIUM (NEB) 3 ML AMP HHN PRN (13:00)
--- NOTE | 2019-02-11 14:34 | CONS ---
Assessment/Plan Assessment/Plan Assessment/Plan (Daily) 48-year-old male with hypertension, diabetes, diabetic neuropathy, end-stage renal disease s/p left arm AVF that appears not fully mature yet Plan: -Appreciate medical/renal management -Rec cont HD via RIJ PC for now and pt to follow up w/ Dr. Carreno for LUE AVF and BLE toe superficial wounds after discharge -Rec dry dressings to toes superficial wounds -D/w [employer] and Dr. Navarro Consultation Date/Type/Reason Admit Date/Time Feb 10, 2019 at 06:26 Date of Consultation: Feb 11, 2019 Reason for Consultation LUE AVF maturity Requesting Provider: HARRY NAVARRO MD Date/Time of Note DATE: 02/11/19 TIME: 14:33 Hx of Present Illness 48-year-old male with hypertension, diabetes, diabetic neuropathy, end-stage renal disease s/p left arm AVF by Dr. Carreno and right permacath for HD; now admitted for severe DKA, in ICU s/p treatment, improved. Dr Navarro inquiring status of LUE AVF. Pt notes he had procedure to LUE AVF recently w/ Dr. Carreno (about 1 month ago). He is suppose to have follow up w/ Dr. Carreno later this week for possible "coils" to AVF per patient. He denies any issues w/ R PC. 14-point ROS performed, neg except for HPI and records Past Medical History Medical History: congestive heart failure (systolic), diabetes, GERD, high cholesterol, hypertension, renal disease, other (hyperuricemia) Home Meds Reported Medications Insulin Lispro (Humalog) 100 Unit/1 Ml Cartridge, 100 UNIT SQ PUMP, EA PT HAS PUMP 01/14/19 Amitriptyline Hcl* (Amitriptyline Hcl*) 25 Mg Tablet, 25 MG PO QHS, #30 TAB 11/18/18 Tramadol Hcl* (Ultram*) 50 Mg Tablet, 50 MG PO Q6H PRN for PAIN, TAB 09/18/18 Omeprazole* (Omeprazole*) 40 Mg Capsule., 40 MG PO DAILY, #30 CAP 09/18/18 Allopurinol* (Allopurinol*) 100 Mg Tablet, 100 MG PO DAILY, TAB 09/18/18 Aspirin (Low Dose Aspirin) 81 Mg Tablet., 81 MG PO DAILY, #30 TAB 09/18/18 Carvedilol* (Carvedilol*) 6.25 Mg Tablet, 6.25 MG PO BID, #60 TAB 09/18/18 Gabapentin* (Gabapentin*) 100 Mg Capsule, 100 MG PO TID, #90 CAP 09/18/18 Medications Current Medications Ondansetron HCl (Zofran Inj) 4 mg Q6H PRN IV NAUSEA AND/OR VOMITING; Start 02/10/19 at 07:30 Acetaminophen (Tylenol Liquid) 650 mg Q6H PRN PO PAIN LEVEL 1-3 OR FEVER; Start 02/10/19 at 07:30 Heparin Sodium (Porcine) (Heparin (5000 Units/1ml)) 5,000 unit Q8 SC Last administered on 02/11/19at 13:59; Admin Dose 5,000 UNIT; Start 02/10/19 at 07:30 Heparin Sodium (Porcine) (Heparin (1000 Units/ml)) 4,500 unit AFTER DIALYSIS CATHETER Last administered on 02/10/19at 13:28; Admin Dose 4,500 UNIT; Start 02/10/19 at 13:30 Miscellaneous Information 1 ea NOTE XX ; Start 02/10/19 at 18:30 Glucose (Glutose) 15 gm Q15M PRN PO DECREASED GLUCOSE; Start 02/10/19 at 18:30 Glucose (Glutose) 22.5 gm Q15M PRN PO DECREASED GLUCOSE; Start 02/10/19 at 18:30 Dextrose (D50w Syringe) 25 ml Q15M PRN IV DECREASED GLUCOSE; Start 02/10/19 at 18:30 Dextrose (D50w Syringe) 50 ml Q15M PRN IV DECREASED GLUCOSE; Start 02/10/19 at 18:30 Glucagon (Glucagen) 1 mg Q15M PRN IM DECREASED GLUCOSE; Start 02/10/19 at 18:30 Glucose (Glutose) 15 gm Q15M PRN BUCCAL DECREASED GLUCOSE; Start 02/10/19 at 18:30 Insulin Human Regular 100 unit/ Sodium Chloride 100 ml @ 0 mls/hr PER PROTOCOL IV Last administered on 02/11/19at 04:23; Admin Dose 4 MLS/HR; Start 02/11/19 at 04:00; Status Hold Miscellaneous Information (* Miscellaneous Pharmacy Order) Treatment of Hypoglycemia: 1.BG 51... Per protocol XX ; Start 02/11/19 at 03:30 Dextrose (D50w Syringe) 25 ml Q15M PRN IV .DECREASED GLUCOSE; Start 02/11/19 at 03:30 Dextrose (D50w Syringe) 50 ml Q15M PRN IV .DECREASED GLUCOSE; Start 02/11/19 at 03:30 Insulin Glargine (Lantus) 27 units DAILY@0800 SC Last administered on 02/11/19at 09:36; Admin Dose 27 UNITS; Start 02/11/19 at 09:00 Sodium Chloride 1,000 ml @ 40 mls/hr Q24H IV Last administered on 02/11/19at 11:12; Admin Dose 40 MLS/HR; Start 02/11/19 at 11:30 Insulin Aspart (Novolog Insulin Pen) 7 unit WITH MEALS SC Last administered on 02/11/19at 12:09; Admin Dose 7 UNIT; Start 02/11/19 at 12:00 Albuterol/ Ipratropium (Duoneb) 3 ml Q4H RESP THERAPY PRN HHN SHORTNESS OF BREATH; Start 02/11/19 at 13:00 Carvedilol (Coreg) 6.25 mg BID PO Last administered on 02/11/19at 13:53; Admin Dose 6.25 MG; Start 02/11/19 at 14:00 Allergies: Coded Allergies: No Known Allergy (Unverified , 01/14/19) Past Surgical History Past Surgical Hx: appendectomy, endoscopy, other (AV fistula) Social History Alcohol Use: sober (used to drink socially) Smoking Status: Former smoker (used to smoke socially) Drug Use: marijuana (in his youth), other (methamphetamine which he needs to improve his energy/fatigue) Exam/Review of Systems Exam Vitals Vital Signs Date Temp Pulse Resp B/P (MAP) Pulse Ox O2 O2 Flow FiO2 Time Delivery Rate 02/11/19 98.8 109 16 170/135 99 Room Air 12:00 (147) 02/11/19 2.0 08:39 02/10/19 36 07:00 Intake and Output 02/10/19 02/10/19 02/11/19 1515:00 23:00 07:00 IntakeIntake Total 1310 ml 380 ml 292 ml OutputOutput Total 1500 ml 800 ml 850 ml BalanceBalance -190 ml -420 ml -558 ml Exam Gen: AAOx3, NAD Neck: RIJ PC c/d/i Lungs: clear Heart: Reg Abd: soft, NT, ND Extr: LUE AVF patent w/ good thrill at AC fossa but feels smaller becki meter/weaker flow more proximally, possibly deep, no edema, no tenderness BLE 1st toe superficial appearing eschars, no edema, no erythema Results Result Diagram: 02/11/1952102/11/19521 Results 24hrs Laboratory Tests Test 02/10/19 15:12 02/10/19 16:01 02/10/19 16:14 02/10/19 16:22 Bedside Glucose 285 H 188 Creatine Kinase 1068 H Creatine Kinase 0.9 Index Creatinine Kinase MB 9.91 H (Mass) Troponin I 0.149 *H Sodium Level 130 L Potassium Level 4.6 Chloride Level 94 L Carbon Dioxide Level 23 Anion Gap 13 Blood Urea Nitrogen 32 H Creatinine 3.41 H Est Glomerular 19 L Filtrat Rate mL/min Glucose Level 355 #H Calcium Level 9.8 Test 02/10/19 17:00 02/10/19 17:59 02/10/19 19:04 02/10/19 21:08 Bedside Glucose 116 73 52 L 196 Test 02/11/19 00:46 02/11/19 02:59 02/11/19 04:17 02/11/19 05:21 Bedside Glucose 365 H 348 H 351 H 338 H Test 02/11/19 05:22 02/11/19 06:22 02/11/19 07:28 02/11/19 08:30 White Blood Count 11.7 H Red Blood Count 3.96 L Hemoglobin 12.4 L Hematocrit 36.8 L Mean Corpuscular 92.9 Volume Mean Corpuscular 31.3 Hemoglobin Mean Corpuscular 33.7 Hemoglobin Concent Red Cell 14.2 Distribution Width Platelet Count 202 Mean Platelet Volume 12.5 H Immature 0.400 Granulocytes % Neutrophils % 84.6 H Lymphocytes % 9.4 L Monocytes % 5.0 Eosinophils % 0.3 Basophils % 0.3 Nucleated Red Blood 0.0 Cells % Immature 0.050 H Granulocytes # Neutrophils # 9.9 H Lymphocytes # 1.1 Monocytes # 0.6 Eosinophils # 0.0 Basophils # 0.0 Nucleated Red Blood 0.0 Cells # Sodium Level 130 L Potassium Level 4.2 Chloride Level 96 L Carbon Dioxide Level 25 Anion Gap 9 Blood Urea Nitrogen 34 H Creatinine 4.19 H Est Glomerular 15 L Filtrat Rate mL/min Glucose Level 398 H Calcium Level 9.0 Phosphorus Level 4.8 Magnesium Level 1.7 Creatine Kinase 684 H Creatine Kinase 0.9 Index Creatinine Kinase MB 5.89 H (Mass) Troponin I 0.120 Bedside Glucose 302 H 223 H 136 Test 02/11/19 09:34 02/11/19 10:28 02/11/19 11:32 02/11/19 11:57 Bedside Glucose 115 125 77 73 Test 02/11/19 13:27 Bedside Glucose 130 Medications Medication Current Medications Ondansetron HCl (Zofran Inj) 4 mg Q6H PRN IV NAUSEA AND/OR VOMITING; Start 02/10/19 at 07:30 Acetaminophen (Tylenol Liquid) 650 mg Q6H PRN PO PAIN LEVEL 1-3 OR FEVER; Start 02/10/19 at 07:30 Heparin Sodium (Porcine) (Heparin (5000 Units/1ml)) 5,000 unit Q8 SC Last administered on 02/11/19at 13:59; Admin Dose 5,000 UNIT; Start 02/10/19 at 07:30 Heparin Sodium (Porcine) (Heparin (1000 Units/ml)) 4,500 unit AFTER DIALYSIS CATHETER Last administered on 02/10/19at 13:28; Admin Dose 4,500 UNIT; Start 02/10/19 at 13:30 Miscellaneous Information 1 ea NOTE XX ; Start 02/10/19 at 18:30 Glucose (Glutose) 15 gm Q15M PRN PO DECREASED GLUCOSE; Start 02/10/19 at 18:30 Glucose (Glutose) 22.5 gm Q15M PRN PO DECREASED GLUCOSE; Start 02/10/19 at 18:30 Dextrose (D50w Syringe) 25 ml Q15M PRN IV DECREASED GLUCOSE; Start 02/10/19 at 18:30 Dextrose (D50w Syringe) 50 ml Q15M PRN IV DECREASED GLUCOSE; Start 02/10/19 at 18:30 Glucagon (Glucagen) 1 mg Q15M PRN IM DECREASED GLUCOSE; Start 02/10/19 at 18:30 Glucose (Glutose) 15 gm Q15M PRN BUCCAL DECREASED GLUCOSE; Start 02/10/19 at 18:30 Insulin Human Regular 100 unit/ Sodium Chloride 100 ml @ 0 mls/hr PER PROTOCOL IV Last administered on 02/11/19 04:23; Admin Dose 4 MLS/HR; Start 02/11/19 at 04:00; Status Hold Miscellaneous Information (* Miscellaneous Pharmacy Order) Treatment of Hypoglycemia: 1.BG 51... Per protocol XX ; Start 02/11/19 at 03:30 Dextrose (D50w Syringe) 25 ml Q15M PRN IV .DECREASED GLUCOSE; Start 02/11/19 at 03:30 Dextrose (D50w Syringe) 50 ml Q15M PRN IV .DECREASED GLUCOSE; Start 02/11/19 at 03:30 Insulin Glargine (Lantus) 27 units DAILY@0800 SC Last administered on 02/11/19at 09:36; Admin Dose 27 UNITS; Start 02/11/19 at 09:00 Sodium Chloride 1,000 ml @ 40 mls/hr Q24H IV Last administered on 02/11/19 11:12; Admin Dose 40 MLS/HR; Start 02/11/19 at 11:30 Insulin Aspart (Novolog Insulin Pen) 7 unit WITH MEALS SC Last administered on 02/11/19 12:09; Admin Dose 7 UNIT; Start 02/11/19 at 12:00 Albuterol/ Ipratropium (Duoneb) 3 ml Q4H RESP THERAPY PRN HHN SHORTNESS OF BREATH; Start 02/11/19 at 13:00 Carvedilol (Coreg) 6.25 mg BID PO Last administered on 02/11/19at 13:53; Admin Dose 6.25 MG; Start 02/11/19 at 14:00 ZAIDA SETH MD Feb 11, 2019 14:33
--- NOTE | 2019-02-11 17:16 | PN ---
Date/Time of Note Date/Time of Note DATE: 02/11/19 TIME: 17:12 Assessment/Plan VTE Prophylaxis Risk score (from Ns)>0 risk: 2 SCD applied (from Ns): Yes Pharmacological prophylaxis: heparin Lines/Catheters IV C[facility]ter Type [facility]from [facility]): Peripheral IV Urinary Cath still in place: No Assessment/Plan Hospital Course 1. Acute metabolic encephalopathy: Multifactorial secondary to uremia, severe hyperglycemia, dehydration-improved DC insulin drip and transitioned to subcu insulin Hemodialysis per renal 2. Severe hyperkalemia-resolved Potassium has improved with insulin and dialysis 3. DKA Status post insulin drip, transitioned to subcu insulin Endocrinology consultation appreciated 4. End-stage renal disease with uremia and hyperkalemia Dialysis has been initiated 5. Metabolic acidosis secondary to renal failure and DKA Insulin and dialysis 6. Pseudohyponatremia secondary to hyperglycemia 7. Type 1 diabetes: Patient has an insulin pump which is not functioning properly A1c of 11, pump turned off Subcu insulin Endocrinology consultation initiated 8. History of systolic cardiopathy: Echo shows an EF 50% Cardiology consultation appreciated 9. Dyslipidemia: Resume statin as indicated 10. Hypertension: Resume home meds when indicated 11. Gout: Hold allopurinol at the current time. Prophylaxis: Heparin Result Diagram: 02/11/1952102/11/19521 Results 24hrs Laboratory Tests Test 02/10/19 17:59 02/10/19 19:04 02/10/19 21:08 02/11/19 00:46 Bedside Glucose 73 52 L 196 365 H Test 02/11/19 02:59 02/11/19 04:17 02/11/19 05:21 02/11/19 05:22 Bedside Glucose 348 H 351 H 338 H White Blood Count 11.7 H Red Blood Count 3.96 L Hemoglobin 12.4 L Hematocrit 36.8 L Mean Corpuscular 92.9 Volume Mean Corpuscular 31.3 Hemoglobin Mean Corpuscular 33.7 Hemoglobin Concent Red Cell 14.2 Distribution Width Platelet Count 202 Mean Platelet Volume 12.5 H Immature 0.400 Granulocytes % Neutrophils % 84.6 H Lymphocytes % 9.4 L Monocytes % 5.0 Eosinophils % 0.3 Basophils % 0.3 Nucleated Red Blood 0.0 Cells % Immature 0.050 H Granulocytes # Neutrophils # 9.9 H Lymphocytes # 1.1 Monocytes # 0.6 Eosinophils # 0.0 Basophils # 0.0 Nucleated Red Blood 0.0 Cells # Sodium Level 130 L Potassium Level 4.2 Chloride Level 96 L Carbon Dioxide Level 25 Anion Gap 9 Blood Urea Nitrogen 34 H Creatinine 4.19 H Est Glomerular 15 L Filtrat Rate mL/min Glucose Level 398 H Calcium Level 9.0 Phosphorus Level 4.8 Magnesium Level 1.7 Creatine Kinase 684 H Creatine Kinase 0.9 Index Creatinine Kinase MB 5.89 H (Mass) Troponin I 0.120 Test 02/11/19 06:22 02/11/19 07:28 02/11/19 08:30 02/11/19 09:34 Bedside Glucose 302 H 223 H 136 115 Test 02/11/19 10:28 02/11/19 11:32 02/11/19 11:57 02/11/19 13:27 Bedside Glucose 125 77 73 130 Subjective 24 Hr Interval Summary Constitutional: no complaints Exam/Review of Systems Exam Vitals Vital Signs Date Temp Pulse Resp B/P (MAP) Pulse Ox O2 O2 Flow FiO2 Time Delivery Rate 02/11/19 98.7 99 12 136/83 97 Room Air 16:00 (100) 02/11/19 2.0 08:39 02/10/19 36 07:00 Intake and Output 02/10/19 02/10/19 02/11/19 1515:00 23:00 07:00 IntakeIntake Total 1310 ml 380 ml 292 ml OutputOutput Total 1500 ml 800 ml 850 ml BalanceBalance -190 ml -420 ml -558 ml Constitutional: alert, oriented Respiratory: clear to auscultation Cardiovascular: regular rate and rhythm Gastrointestinal: soft; No distended Musculoskeletal: nl extremities to inspection Results Results 24hrs Laboratory Tests Test 02/10/19 17:59 02/10/19 19:04 02/10/19 21:08 02/11/19 00:46 Bedside Glucose 73 52 L 196 365 H Test 02/11/19 02:59 02/11/19 04:17 02/11/19 05:21 02/11/19 05:22 Bedside Glucose 348 H 351 H 338 H White Blood Count 11.7 H Red Blood Count 3.96 L Hemoglobin 12.4 L Hematocrit 36.8 L Mean Corpuscular 92.9 Volume Mean Corpuscular 31.3 Hemoglobin Mean Corpuscular 33.7 Hemoglobin Concent Red Cell 14.2 Distribution Width Platelet Count 202 Mean Platelet Volume 12.5 H Immature 0.400 Granulocytes % Neutrophils % 84.6 H Lymphocytes % 9.4 L Monocytes % 5.0 Eosinophils % 0.3 Basophils % 0.3 Nucleated Red Blood 0.0 Cells % Immature 0.050 H Granulocytes # Neutrophils # 9.9 H Lymphocytes # 1.1 Monocytes # 0.6 Eosinophils # 0.0 Basophils # 0.0 Nucleated Red Blood 0.0 Cells # Sodium Level 130 L Potassium Level 4.2 Chloride Level 96 L Carbon Dioxide Level 25 Anion Gap 9 Blood Urea Nitrogen 34 H Creatinine 4.19 H Est Glomerular 15 L Filtrat Rate mL/min Glucose Level 398 H Calcium Level 9.0 Phosphorus Level 4.8 Magnesium Level 1.7 Creatine Kinase 684 H Creatine Kinase 0.9 Index Creatinine Kinase MB 5.89 H (Mass) Troponin I 0.120 Test 02/11/19 06:22 02/11/19 07:28 02/11/19 08:30 02/11/19 09:34 Bedside Glucose 302 H 223 H 136 115 Test 02/11/19 10:28 02/11/19 11:32 02/11/19 11:57 02/11/19 13:27 Bedside Glucose 125 77 73 130 Medications Medication Current Medications Ondansetron HCl (Zofran Inj) 4 mg Q6H PRN IV NAUSEA AND/OR VOMITING; Start 02/10/19 at 07:30 Acetaminophen (Tylenol Liquid) 650 mg Q6H PRN PO PAIN LEVEL 1-3 OR FEVER; Start 02/10/19 at 07:30 Heparin Sodium (Porcine) (Heparin (5000 Units/1ml)) 5,000 unit Q8 SC Last administered on 02/11/19at 13:59; Admin Dose 5,000 UNIT; Start 02/10/19 at 07:30 Heparin Sodium (Porcine) (Heparin (1000 Units/ml)) 4,500 unit AFTER DIALYSIS CATHETER Last administered on 02/10/19at 13:28; Admin Dose 4,500 UNIT; Start 02/10/19 at 13:30 Miscellaneous Information 1 ea NOTE XX ; Start 02/10/19 at 18:30 Glucose (Glutose) 15 gm Q15M PRN PO DECREASED GLUCOSE; Start 02/10/19 at 18:30 Glucose (Glutose) 22.5 gm Q15M PRN PO DECREASED GLUCOSE; Start 02/10/19 at 18:30 Dextrose (D50w Syringe) 25 ml Q15M PRN IV DECREASED GLUCOSE; Start 02/10/19 at 18:30 Dextrose (D50w Syringe) 50 ml Q15M PRN IV DECREASED GLUCOSE; Start 02/10/19 at 18:30 Glucagon (Glucagen) 1 mg Q15M PRN IM DECREASED GLUCOSE; Start 02/10/19 at 18:30 Glucose (Glutose) 15 gm Q15M PRN BUCCAL DECREASED GLUCOSE; Start 02/10/19 at 18:30 Insulin Human Regular 100 unit/ Sodium Chloride 100 ml @ 0 mls/hr PER PROTOCOL IV Last administered on 02/11/19at 04:23; Admin Dose 4 MLS/HR; Start 02/11/19 at 04:00; Status Hold Miscellaneous Information (* Miscellaneous Pharmacy Order) Treatment of Hypoglycemia: 1.BG 51... Per protocol XX ; Start 02/11/19 at 03:30 Dextrose (D50w Syringe) 25 ml Q15M PRN IV .DECREASED GLUCOSE; Start 02/11/19 at 03:30 Dextrose (D50w Syringe) 50 ml Q15M PRN IV .DECREASED GLUCOSE; Start 02/11/19 at 03:30 Insulin Glargine (Lantus) 27 units DAILY@0800 SC Last administered on 02/11/19at 09:36; Admin Dose 27 UNITS; Start 02/11/19 at 09:00 Sodium Chloride 1,000 ml @ 40 mls/hr Q24H IV Last administered on 02/11/19at 11:12; Admin Dose 40 MLS/HR; Start 02/11/19 at 11:30 Insulin Aspart (Novolog Insulin Pen) 7 unit WITH MEALS SC Last administered on 02/11/19at 12:09; Admin Dose 7 UNIT; Start 02/11/19 at 12:00 Albuterol/ Ipratropium (Duoneb) 3 ml Q4H RESP THERAPY PRN HHN SHORTNESS OF BREATH; Start 02/11/19 at 13:00 Carvedilol (Coreg) 6.25 mg BID PO Last administered on 02/11/19at 13:53; Admin Dose 6.25 MG; Start 02/11/19 at 14:00 Diagnostic Test (Pha) (Accu-Chek) 1 ea Q4 XX ; Start 02/11/19 at 17:00 VALENTINA MART Feb 11, 2019 17:16
[2019-02-11] MEDS ORDERED: traMADol 50 MG TAB PO PRN (17:30)
--- NOTE | 2019-02-11 17:52 | CONS ---
Assessment/Plan Assessment/Plan Problems: (1) Type 1 diabetes mellitus with hyperglycemia Status: Chronic Comment: Insulin pump site not effective. Pt. on insulin pump overnight w/ hyperglycemia developing rapidly. Had to be placed back on insulin drip. Started lantus 27 units this am w/ Novolog 9 units qac. By midday turned off drip. Novolog reduced to 7 units qac. Seems to still be more than pt. needs. Now will decrease lantus to 22 qam and Novolog to 6 qac. Will transfer out of ICU. Likely pt. will be well for d/c tomorrow, at least from standpoint of BG. Pt. may resume insulin pump w/ new pump site after d/c. Consultation Date/Type/Reason Admit Date/Time Feb 10, 2019 at 06:26 Initial Consult Date 02/11/19 Type of Consult Endocrinology Reason for Consultation BG > 1700 mg/dL Requesting Provider: HARRY ARSHAD MD Date/Time of Note DATE: 02/11/19 TIME: 17:48 24 HR Interval Summary Constitutional: no complaints, improved Detailed Summary Respiratory: no complaints Cardiovascular: no complaints Gastrointestinal: no complaints Genitourinary: no complaints Musculoskeletal: no complaints Neurologic: no complaints Exam/Review of Systems Exam Vitals VS - Last 72 Hours, by Label Date Temp Pulse Resp B/P (MAP) Pulse Ox O2 O2 Flow FiO2 Time Delivery Rate 02/11/19 21 17:23 02/11/19 98.7 99 12 136/83 97 Room Air 16:00 (100) 02/11/19 98 16:00 02/11/19 105 157/95 97 Room Air 15:00 (115) 02/11/19 106 14 149/88 99 Room Air 14:00 (108) 02/11/19 108 18 155/98 98 Room Air 13:00 (117) 02/11/19 98.8 109 16 170/135 99 Room Air 12:00 (147) 02/11/19 109 12:00 02/11/19 108 18 140/53 99 Room Air 11:00 (82) 02/11/19 98.5 109 9 154/86 100 Nasal 10:00 (108) Cannula 02/11/19 109 20 153/88 100 Nasal 09:00 (109) Cannula 02/11/19 109 22 100 Nasal 2.0 08:39 Cannula 02/11/19 112 08:00 02/11/19 Nasal 2.0 08:00 Cannula 02/11/19 113 17 154/81 100 Nasal 08:00 (105) Cannula 02/11/19 100.5 111 21 171/90 100 Nasal 07:00 (117) Cannula 02/11/19 111 15 143/79 98 Room Air 06:00 (100) 02/11/19 108 15 158/90 100 Room Air 05:00 (112) 02/11/19 104 12 98 Nasal 2.0 04:49 Cannula 02/11/19 98.6 108 32 149/85 100 Room Air 04:00 (106) 02/11/19 108 04:00 02/11/19 111 22 121/63 96 Room Air 03:00 (82) 02/11/19 106 19 140/74 99 Room Air 02:00 (96) 02/11/19 2.0 01:24 02/11/19 103 16 97 Nasal 2.0 01:23 Cannula 02/11/19 104 9 111/61 96 Room Air 01:00 (78) 02/11/19 104 00:00 02/11/19 98.9 104 19 158/81 100 Room Air 00:00 (106) 02/10/19 103 19 148/83 100 Nasal 2.0 23:00 (104) Cannula 02/10/19 103 19 129/44 95 Nasal 2.0 22:00 (72) Cannula 02/10/19 107 23 136/69 99 21:00 (91) 02/10/19 103 20:00 02/10/19 98.5 103 13 121/64 100 Nasal 2.0 20:00 (83) Cannula 02/10/19 Nasal 2.0 20:00 Cannula 02/10/19 2.0 19:50 02/10/19 104 15 98 Nasal 2.0 19:48 Cannula 02/10/19 105 16 137/72 100 Nasal 2.0 19:00 (93) Cannula 02/10/19 102 14 134/60 93 Nasal 18:00 (84) Cannula 02/10/19 2.0 17:17 02/10/19 105 14 98 Nasal 2.0 17:13 Cannula 02/10/19 104 22 148/74 100 Nasal 17:00 (98) Cannula 02/10/19 98.7 101 27 148/87 100 Nasal 16:00 (107) Cannula 02/10/19 101 16:00 02/10/19 103 21 148/99 100 Nasal 15:00 (115) Cannula 02/10/19 103 27 129/58 98 Nasal 14:00 (81) Cannula 02/10/19 100 13:30 02/10/19 100 13:15 02/10/19 100 13:00 02/10/19 101 19 127/99 98 Nasal 13:00 (108) Cannula 02/10/19 100 12:45 02/10/19 100 12:30 02/10/19 100 12:15 02/10/19 100 12:00 02/10/19 98.8 100 19 128/80 98 Nasal 12:00 (96) Cannula 02/10/19 100 12:00 02/10/19 99 11:45 02/10/19 99 11:30 02/10/19 98 11:15 02/10/19 99 23 142/82 99 Nasal 11:00 (102) Cannula 02/10/19 98 11:00 02/10/19 99 10:45 02/10/19 95 17 136/71 96 10:30 (92) 02/10/19 99 10:30 02/10/19 101 20 132/85 98 Nasal 4.0 10:30 (101) Cannula 02/10/19 95 12 143/71 98 Nasal 10:00 (95) Cannula 02/10/19 96 18 157/70 98 Nasal 09:00 (99) Cannula 02/10/19 96 18 152/72 90 08:30 (98) 02/10/19 Nasal 4.0 08:00 Cannula 02/10/19 96 08:00 02/10/19 98.5 96 24 111/99 98 Nasal 08:00 (103) Cannula 02/10/19 98 27 106/59 98 Nasal 07:30 (75) Cannula 02/10/19 98.1 106 22 180/70 99 Nasal 4.0 07:15 (106) Cannula 02/10/19 114 20 95 Nasal 4.0 36 07:00 Cannula 02/10/19 110 22 141/74 98 Nasal 4.0 06:26 (96) Cannula 02/10/19 78 22 115/52 98 Nasal 4.0 06:17 (73) Cannula 02/10/19 108 18 104/60 100 05:10 (75) 02/10/19 98.6 101 18 120/65 100 Room Air 05:10 (83) Vital Signs Date Temp Pulse Resp B/P (MAP) Pulse Ox O2 O2 Flow FiO2 Time Delivery Rate 02/11/19 21 17:23 02/11/19 98.7 99 12 136/83 97 Room Air 16:00 (100) 02/11/19 2.0 08:39 Intake and Output 02/10/19 02/10/19 02/11/19 1515:00 23:00 07:00 IntakeIntake Total 1310 ml 380 ml 292 ml OutputOutput Total 1500 ml 800 ml 850 ml BalanceBalance -190 ml -420 ml -558 ml Constitutional: alert, oriented, well developed Psych: no complaints, nl mood/affect Respiratory: clear to auscultation, normal air movement Cardiovascular: regular rate and rhythm, nl pulses; No edema, No murmurs/extra sounds, No rub Gastrointestinal: soft, nl liver, spleen, non-tender, bowel sounds; No mass, No rebound or guarding Musculoskeletal: nl extremities to inspection Extremities: No cyanosis, No clubbing, No edema 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, nl mental status, nl speech, nl strength Additional Comments Bedside Glucose - 72 Hours Test 02/10/19 05:12 02/10/19 06:00 02/10/19 06:14 02/10/19 06:57 Bedside > 595 > 595 > 595 > 595 Glucose mg/dL (70-220) mg/dL (70-220) mg/dL (70-220) mg/dL (70-220) *H *H *H *H Test 02/10/19 07:40 02/10/19 08:43 02/10/19 09:48 02/10/19 10:59 Bedside > 595 > 595 > 595 > 595 Glucose mg/dL (70-220) mg/dL (70-220) mg/dL (70-220) mg/dL (70-220) *H *H *H *H Test 02/10/19 11:54 02/10/19 12:57 02/10/19 13:45 02/10/19 15:12 Bedside > 595 433 352 285 Glucose mg/dL (70-220) mg/dL (70-220) mg/dL (70-220) mg/dL (70-220) *H *H H H Test 02/10/19 16:14 02/10/19 17:00 02/10/19 17:59 02/10/19 19:04 Bedside 188 116 73 52 Glucose mg/dL (70-220) mg/dL (70-220) mg/dL (70-220) mg/dL (70-220) L Test 02/10/19 21:08 02/11/19 00:46 02/11/19 02:59 02/11/19 04:17 Bedside 196 365 348 351 Glucose mg/dL (70-220) mg/dL (70-220) mg/dL (70-220) mg/dL (70-220) H H H Test 02/11/19 05:21 02/11/19 06:22 02/11/19 07:28 02/11/19 08:30 Bedside 338 302 223 136 Glucose mg/dL (70-220) mg/dL (70-220) mg/dL (70-220) mg/dL (70-220) H H H Test 02/11/19 09:34 02/11/19 10:28 02/11/19 11:32 02/11/19 11:57 Bedside 115 125 77 73 Glucose mg/dL (70-220) mg/dL (70-220) mg/dL (70-220) mg/dL (70-220) Test 02/11/19 13:27 02/11/19 17:11 02/11/19 17:27 Bedside 130 69 72 Glucose mg/dL (70-220) mg/dL (70-220) mg/dL (70-220) L Results Result Diagram: 02/11/1952102/11/19521 Results 24hrs Laboratory Tests Test 02/10/19 17:59 02/10/19 19:04 02/10/19 21:08 02/11/19 00:46 Bedside Glucose 73 52 L 196 365 H Test 02/11/19 02:59 02/11/19 04:17 02/11/19 05:21 02/11/19 05:22 Bedside Glucose 348 H 351 H 338 H White Blood Count 11.7 H Red Blood Count 3.96 L Hemoglobin 12.4 L Hematocrit 36.8 L Mean Corpuscular 92.9 Volume Mean Corpuscular 31.3 Hemoglobin Mean Corpuscular 33.7 Hemoglobin Concent Red Cell 14.2 Distribution Width Platelet Count 202 Mean Platelet Volume 12.5 H Immature 0.400 Granulocytes % Neutrophils % 84.6 H Lymphocytes % 9.4 L Monocytes % 5.0 Eosinophils % 0.3 Basophils % 0.3 Nucleated Red Blood 0.0 Cells % Immature 0.050 H Granulocytes # Neutrophils # 9.9 H Lymphocytes # 1.1 Monocytes # 0.6 Eosinophils # 0.0 Basophils # 0.0 Nucleated Red Blood 0.0 Cells # Sodium Level 130 L Potassium Level 4.2 Chloride Level 96 L Carbon Dioxide Level 25 Anion Gap 9 Blood Urea Nitrogen 34 H Creatinine 4.19 H Est Glomerular 15 L Filtrat Rate mL/min Glucose Level 398 H Calcium Level 9.0 Phosphorus Level 4.8 Magnesium Level 1.7 Creatine Kinase 684 H Creatine Kinase 0.9 Index Creatinine Kinase MB 5.89 H (Mass) Troponin I 0.120 Test 02/11/19 06:22 02/11/19 07:28 02/11/19 08:30 02/11/19 09:34 Bedside Glucose 302 H 223 H 136 115 Test 02/11/19 10:28 02/11/19 11:32 02/11/19 11:57 02/11/19 13:27 Bedside Glucose 125 77 73 130 Test 02/11/19 17:11 02/11/19 17:27 Bedside Glucose 69 L 72 Medications Medication Current Medications Ondansetron HCl (Zofran Inj) 4 mg Q6H PRN IV NAUSEA AND/OR VOMITING; Start 02/10/19 at 07:30 Acetaminophen (Tylenol Liquid) 650 mg Q6H PRN PO PAIN LEVEL 1-3 OR FEVER; Start 02/10/19 at 07:30 Heparin Sodium (Porcine) (Heparin (5000 Units/1ml)) 5,000 unit Q8 SC Last administered on 02/11/19at 13:59; Admin Dose 5,000 UNIT; Start 02/10/19 at 07:30 Heparin Sodium (Porcine) (Heparin (1000 Units/ml)) 4,500 unit AFTER DIALYSIS CATHETER Last administered on 02/10/19at 13:28; Admin Dose 4,500 UNIT; Start 02/10/19 at 13:30 Miscellaneous Information 1 ea NOTE XX ; Start 02/10/19 at 18:30 Glucose (Glutose) 15 gm Q15M PRN PO DECREASED GLUCOSE; Start 02/10/19 at 18:30 Glucose (Glutose) 22.5 gm Q15M PRN PO DECREASED GLUCOSE; Start 02/10/19 at 18:30 Dextrose (D50w Syringe) 25 ml Q15M PRN IV DECREASED GLUCOSE; Start 02/10/19 at 18:30 Dextrose (D50w Syringe) 50 ml Q15M PRN IV DECREASED GLUCOSE; Start 02/10/19 at 18:30 Glucagon (Glucagen) 1 mg Q15M PRN IM DECREASED GLUCOSE; Start 02/10/19 at 18:30 Glucose (Glutose) 15 gm Q15M PRN BUCCAL DECREASED GLUCOSE; Start 02/10/19 at 18 :30 Insulin Human Regular 100 unit/ Sodium Chloride 100 ml @ 0 mls/hr PER PROTOCOL IV Last administered on 02/11/19at 04:23; Admin Dose 4 MLS/HR; Start 02/11/19 at 04:00; Status Hold Miscellaneous Information (* Miscellaneous Pharmacy Order) Treatment of Hypoglycemia: 1.BG 51... Per protocol XX ; Start 02/11/19 at 03:30 Dextrose (D50w Syringe) 25 ml Q15M PRN IV .DECREASED GLUCOSE; Start 02/11/19 at 03:30 Dextrose (D50w Syringe) 50 ml Q15M PRN IV .DECREASED GLUCOSE; Start 02/11/19 at 03:30 Sodium Chloride 1,000 ml @ 40 mls/hr Q24H IV Last administered on 02/11/19at 11:12; Admin Dose 40 MLS/HR; Start 02/11/19 at 11:30 Albuterol/ Ipratropium (Duoneb) 3 ml Q4H RESP THERAPY PRN HHN SHORTNESS OF BREATH; Start 02/11/19 at 13:00 Carvedilol (Coreg) 6.25 mg BID PO Last administered on 02/11/19at 13:53; Admin Dose 6.25 MG; Start 02/11/19 at 14:00 Diagnostic Test (Pha) (Accu-Chek) 1 ea Q4 XX ; Start 02/11/19 at 17:00 Tramadol HCl (Ultram) 50 mg Q6H PRN PO MODERATE PAIN LEVEL 4-6; Start 02/11/19 at 17:30 Insulin Aspart (Novolog Insulin Pen) 6 unit WITH MEALS SC ; Start 02/12/19 at 07:35; Status UNV Insulin Glargine (Lantus) 22 units DAILY@0800 SC ; Start 02/12/19 at 08:00; Status ROYCEV ANDRES HIGUERA MD Feb 11, 2019 17:52
[2019-02-11] MEDS: INSULIN ASPART [NOVOLOG] 3 ML PEN SC SCH (17:58)
[2019-02-11] MEDS ORDERED: AL HYDROX/MG HYDROX/SIMETH 30 ML CUP PO PRN (22:00)
[2019-02-12] VITALS (30 sets, daily range): BP systolic 144–176; BP diastolic 64–107; PULSE 88–101; RESP 11–20
[2019-02-12] MEDS: PANTOPRAZOLE (EC) 40 MG TAB PO SCH (05:06)
[2019-02-12] MEDS: HEPARIN 5,000 UNIT/1 ML VIAL SC SCH ×3 (05:28→21:14)
--- NOTE | 2019-02-12 06:40 | CONS ---
Consult Date/Type/Reason Admit Date/Time Feb 10, 2019 at 06:26 Initial Consult Date 02/10/19 Type of Consultation: cv Requesting Provider: HARRY ARSHAD MD Date/Time of Note DATE: 02/12/19 TIME: 06:39 Subjective Interventional cardiology follow-up progress note Subjective: Discussed with the staff telemetry was reviewed. Patient remains in sinus rhythm. No chest pain or pressure. Patient is back off insulin drip and out of the ICU No bleeding is reported His old records was reviewed. Patient has had a coronary angiography done about a year level in 2018 which showed no obstructive coronary artery disease c/o sneezing last night Objective: General: no acute distress HEENT: NC/AT. pupils are equal. round. NECK: . no stridor. CV: RRR. systolic murmur; no gallop or rubs. PULM: no wheezing or rhonchi. GI: SOFT, NT, ND, no rebound or guarding Extremity: trace B/L LE edema. no clubbing. neuro: awake and alert Psych: calm rectal: deferred EKG done February 10, 2019 at 5:26 AM which was personally reviewed showed idioventricular rhythm EKG 706 showed normal sinus rhythm with frequent PACs. The vertical conduction delay Echocardiogram done February 10, 2019 shows: Lower limits of normal systolic function. Normal left ventricular cavity size. Normal left ventricular wall thickness. Ejection fraction is visually estimated at 50 %. Tissue Doppler/Mitral Doppler indices are within normal limits. Mild mitral leaflet calcification. Mild mitral annular calcification. Trace mitral regurgitation. No significant aortic stenosis or insufficiency. Aortic cusps appear mildly calcified. Normal appearance of the tricuspid valve. The estimated Peak RVSP is 39 mmHg. There is mild tricuspid regurgitation. Normal pericardium with no significant pericardial effusion. There is an anterior echo free space consistent with epicardial fat pad. Objective Vitals Vital Signs Date Temp Pulse Resp B/P (MAP) Pulse Ox O2 O2 Flow FiO2 Time Delivery Rate 02/12/19 98.3 93 18 176/94 96 Room Air 06:00 (121) 02/11/19 21 17:23 02/11/19 2.0 08:39 Intake and Output 02/11/19 02/11/19 02/12/19 1515:00 23:00 07:00 IntakeIntake Total 715 ml 1220 ml 450 ml OutputOutput Total 750 ml 700 ml 1300 ml BalanceBalance -35 ml 520 ml -850 ml Results/Medications Result Diagram: 02/12/19 0505 02/12/19 0505 Results 24 hrs Laboratory Tests Test 02/11/19 07:28 02/11/19 08:30 02/11/19 09:34 02/11/19 10:28 Bedside Glucose 223 H 136 115 125 Test 02/11/19 11:32 02/11/19 11:57 02/11/19 13:27 02/11/19 17:11 Bedside Glucose 77 73 130 69 L Test 02/11/19 17:27 02/11/19 21:07 02/12/19 05:05 Bedside Glucose 72 164 White Blood Count 8.2 # Red Blood Count 3.67 L Hemoglobin 11.5 L Hematocrit 34.2 L Mean Corpuscular 93.2 Volume Mean Corpuscular 31.3 Hemoglobin Mean Corpuscular 33.6 Hemoglobin Concent Red Cell 14.6 H Distribution Width Platelet Count 202 Mean Platelet Volume 12.1 H Immature 0.200 Granulocytes % Neutrophils % 73.4 Lymphocytes % 15.5 Monocytes % 8.0 Eosinophils % 2.4 Basophils % 0.5 Nucleated Red Blood 0.2 H Cells % Immature 0.020 Granulocytes # Neutrophils # 6.0 Lymphocytes # 1.3 Monocytes # 0.7 Eosinophils # 0.2 Basophils # 0.0 Nucleated Red Blood 0.0 Cells # Sodium Level 133 L Potassium Level 4.1 Chloride Level 101 Carbon Dioxide Level 25 Anion Gap 7 Blood Urea Nitrogen 37 H Creatinine 4.59 H Est Glomerular 14 L Filtrat Rate mL/min Glucose Level 248 #H Calcium Level 8.9 Home Meds Reported Medications Insulin Lispro (Humalog) 100 Unit/1 Ml Cartridge, 100 UNIT SQ PUMP, EA PT HAS PUMP 01/14/19 Amitriptyline Hcl* (Amitriptyline Hcl*) 25 Mg Tablet, 25 MG PO QHS, #30 TAB 11/18/18 Tramadol Hcl* (Ultram*) 50 Mg Tablet, 50 MG PO Q6H PRN for PAIN, TAB 09/18/18 Omeprazole* (Omeprazole*) 40 Mg Capsule.dr, 40 MG PO DAILY, #30 CAP 09/18/18 Allopurinol* (Allopurinol*) 100 Mg Tablet, 100 MG PO DAILY, TAB 09/18/18 Aspirin (Low Dose Aspirin) 81 Mg Tablet.dr, 81 MG PO DAILY, #30 TAB 09/18/18 Carvedilol* (Carvedilol*) 6.25 Mg Tablet, 6.25 MG PO BID, #60 TAB 09/18/18 Gabapentin* (Gabapentin*) 100 Mg Capsule, 100 MG PO TID, #90 CAP 09/18/18 Medications Current Medications Ondansetron HCl (Zofran Inj) 4 mg Q6H PRN IV NAUSEA AND/OR VOMITING; Start 02/10/19 at 07:30 Acetaminophen (Tylenol Liquid) 650 mg Q6H PRN PO PAIN LEVEL 1-3 OR FEVER; Start 02/10/19 at 07:30 Heparin Sodium (Porcine) (Heparin (5000 Units/1ml)) 5,000 unit Q8 SC Last administered on 02/12/19at 05:28; Admin Dose 5,000 UNIT; Start 02/10/19 at 07:30 Heparin Sodium (Porcine) (Heparin (1000 Units/ml)) 4,500 unit AFTER DIALYSIS CATHETER Last administered on 02/10/19at 13:28; Admin Dose 4,500 UNIT; Start 02/10/19 at 13:30 Miscellaneous Information 1 ea NOTE XX ; Start 02/10/19 at 18:30 Glucose (Glutose) 15 gm Q15M PRN PO DECREASED GLUCOSE; Start 02/10/19 at 18:30 Glucose (Glutose) 22.5 gm Q15M PRN PO DECREASED GLUCOSE; Start 02/10/19 at 18:30 Dextrose (D50w Syringe) 25 ml Q15M PRN IV DECREASED GLUCOSE; Start 02/10/19 at 18:30 Dextrose (D50w Syringe) 50 ml Q15M PRN IV DECREASED GLUCOSE; Start 02/10/19 at 18:30 Glucagon (Glucagen) 1 mg Q15M PRN IM DECREASED GLUCOSE; Start 02/10/19 at 18:30 Glucose (Glutose) 15 gm Q15M PRN BUCCAL DECREASED GLUCOSE; Start 02/10/19 at 18:30 Insulin Human Regular 100 unit/ Sodium Chloride 100 ml @ 0 mls/hr PER PROTOCOL IV Last administered on 02/11/19at 04:23; Admin Dose 4 MLS/HR; Start 02/11/19 at 04:00; Status Hold Miscellaneous Information (* Miscellaneous Pharmacy Order) Treatment of Hypoglycemia: 1.BG 51... Per protocol XX ; Start 02/11/19 at 03:30 Dextrose (D50w Syringe) 25 ml Q15M PRN IV .DECREASED GLUCOSE; Start 02/11/19 at 03:30 Dextrose (D50w Syringe) 50 ml Q15M PRN IV .DECREASED GLUCOSE; Start 02/11/19 at 03:30 Sodium Chloride 1,000 ml @ 40 mls/hr Q24H IV Last administered on 02/11/19at 11:12; Admin Dose 40 MLS/HR; Start 02/11/19 at 11:30 Albuterol/ Ipratropium (Duoneb) 3 ml Q4H RESP THERAPY PRN HHN SHORTNESS OF BREATH; Start 02/11/19 at 13:00 Carvedilol (Coreg) 6.25 mg BID PO Last administered on 02/11/19at 21:08; Admin Dose 6.25 MG; Start 02/11/19 at 14:00 Tramadol HCl (Ultram) 50 mg Q6H PRN PO MODERATE PAIN LEVEL 4-6; Start 02/11/19 at 17:30 Insulin Glargine (Lantus) 22 units DAILY@0800 SC ; Start 02/12/19 at 08:00 Insulin Aspart (Novolog Insulin Pen) 6 unit WITH MEALS SC Last administered on 02/11/19at 17:58; Admin Dose 6 UNIT; Start 02/11/19 at 18:00 Diagnostic Test (Pha) (Accu-Chek) 1 ea AC MEALS AND BEDTIME XX Last administered on 02/11/19at 21:08; Admin Dose 1 EA; Start 02/11/19 at 21:00 Pantoprazole (Protonix Tab) 40 mg DAILY@06 PO Last administered on 02/12/19 05:06; Admin Dose 40 MG; Start 02/12/19 at 06:00 Al Hydrox/Mg Hydrox/Simethicone (Mag-Al Plus) 30 ml Q4H PRN PO GASTROINTESTINAL UPSET Last administered on 02/11/19at 22:03; Admin Dose 30 ML; Start 02/11/19 at 22:00 Assessment/Plan Hospital Course (Demo Recall) 1. Abnormal EKG secondary to severe hyperkalemia, 2. Diabetic ketoacidosis and severe hyperglycemia 3. hyponatremia secondary to above 4. Cardiomyopathy: Ejection. Appears to have improved now 5. History of hypertension 6. Severe hyperkalemia of more than 9: Has been corrected with dialysis now 7. Encephalopathy 8. Severe hyperglycemia and hyperosmolar coma/encephalopathy: Currently on insulin drip 9. Mildly abnormal troponin secondary to above Recommendations: Correction of potassium as per renal. Hyponatremia correction as per renal. We will closely monitor him on telemetry in ICU.. Patient is currently on insulin drip in ICU. Repeat EKG have shown resolution of wide-complex rhythm. Monitor closely. 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 cont med therapy only Thank you for this referral. We will continue to follow along with you SUPRIYA PRITCHARD MD [facility] SUPRIYA PRITCHARD MD Feb 12, 2019 06:40
[2019-02-12] MEDS ORDERED: INSULIN ASPART [NOVOLOG] 3 ML PEN SC SCH (07:35)
[2019-02-12] MEDS: ACCU-CHEK XX SCH ×4 (08:19→21:02)
[2019-02-12] MEDS: INSULIN ASPART [NOVOLOG] 3 ML PEN SC SCH ×3 (08:32→17:50)
[2019-02-12] MEDS: INSULIN GLARGINE [LANTus] (100 UNITS/ML) SYG SC SCH (09:19)
[2019-02-12] MEDS: SOD CHLORIDE 0.9% 1,000 ML IV SCH (11:30)
[2019-02-12] MEDS ORDERED: DIPHENHYDRAMINE 50 MG INJ IV PRN (11:30)
[2019-02-12] MEDS: HEPARIN 1000 UNITS/ML 10 ML INJ CATHETER SCH (12:49)
--- NOTE | 2019-02-12 13:52 | CONS ---
Assessment/Plan Assessment/Plan Assessment/Plan (Daily) 48-year-old male who presented with: 1. Severe diabetic ketoacidosis, on insulin drip. . Has questions and concerns about his vision.likley due to non compliance and insulin pump not working 2. Severe hyponatremia, likely combination pseudo with hyperglycemia. Sugar is 1728 plus excessive water intake due to hyperglycemia.improved 3. Severe hyperkalemia, likely secondary to acidosis, noncompliance. The patient has been noncompliant with his diet. 4. Acute encephalopathy, metabolic secondary to above, electrolyte changes, diabetic ketoacidosis. 5. Hyperlipidemia. 6. Nonischemic cardiomyopathy. 7. End-stage renal disease on hemodialysis. Sunday 8. Diabetic with complication of diabetic retinopathy, neuropathy and nephropathy. 9. EKG changes secondary to #1. 10. Gout. Plan - Na improved - on lantus and mealtime insulin - HD today, hd mwf - Pt should fu Dr Carreno for fistula dc planning on insulin pump Consultation Date/Type/Reason Admit Date/Time Feb 10, 2019 at 06:26 Initial Consult Date 02/10/19 Requesting Provider: HARRY ARSHAD MD Date/Time of Note DATE: 02/12/19 TIME: 13:48 24 HR Interval Summary Free Text/Dictation Patient feels much better now. sugars better controlled Patient says that she he his insulin pump was beeping and he never really filled up the insulin and that and his sugars were high because of himself Exam/Review of Systems Exam Vitals Vital Signs Date Temp Pulse Resp B/P (MAP) Pulse Ox O2 O2 Flow FiO2 Time Delivery Rate 02/12/19 92 157/91 100 Room Air 13:44 (113) 02/12/19 16 12:35 02/12/19 97.8 11:34 02/11/19 21 17:23 02/11/19 2.0 08:39 Intake and Output 02/11/19 02/11/19 02/12/19 1515:00 23:00 07:00 IntakeIntake Total 715 ml 1220 ml 450 ml OutputOutput Total 750 ml 700 ml 1300 ml BalanceBalance -35 ml 520 ml -850 ml Exam gen: curled side of bed neck:supple lungs: clear abdomen: soft, non tender ext : no edema, blackish dis of toe noted rt permacath left fistula +bruit/ thrill small too deep Results Result Diagram: 02/12/19 0505 02/12/19 0505 Results 24hrs Laboratory Tests Test 02/11/19 17:11 02/11/19 17:27 02/11/19 21:07 02/12/19 05:05 Bedside Glucose 69 L 72 164 White Blood Count 8.2 # Red Blood Count 3.67 L Hemoglobin 11.5 L Hematocrit 34.2 L Mean Corpuscular 93.2 Volume Mean Corpuscular 31.3 Hemoglobin Mean Corpuscular 33.6 Hemoglobin Concent Red Cell 14.6 H Distribution Width Platelet Count 202 Mean Platelet Volume 12.1 H Immature 0.200 Granulocytes % Neutrophils % 73.4 Lymphocytes % 15.5 Monocytes % 8.0 Eosinophils % 2.4 Basophils % 0.5 Nucleated Red Blood 0.2 H Cells % Immature 0.020 Granulocytes # Neutrophils # 6.0 Lymphocytes # 1.3 Monocytes # 0.7 Eosinophils # 0.2 Basophils # 0.0 Nucleated Red Blood 0.0 Cells # Sodium Level 133 L Potassium Level 4.1 Chloride Level 101 Carbon Dioxide Level 25 Anion Gap 7 Blood Urea Nitrogen 37 H Creatinine 4.59 H Est Glomerular 14 L Filtrat Rate mL/min Glucose Level 248 #H Calcium Level 8.9 Test 02/12/19 08:18 02/12/19 11:43 Bedside Glucose 220 161 Medications Medication Current Medications Ondansetron HCl (Zofran Inj) 4 mg Q6H PRN IV NAUSEA AND/OR VOMITING; Start 02/10/19 at 07:30 Acetaminophen (Tylenol Liquid) 650 mg Q6H PRN PO PAIN LEVEL 1-3 OR FEVER; Start 02/10/19 at 07:30 Heparin Sodium (Porcine) (Heparin (5000 Units/1ml)) 5,000 unit Q8 SC Last administered on 02/12/19at 05:28; Admin Dose 5,000 UNIT; Start 02/10/19 at 07:30 Heparin Sodium (Porcine) (Heparin (1000 Units/ml)) 4,500 unit AFTER DIALYSIS CATHETER Last administered on 02/12/19at 12:49; Admin Dose 4,500 UNIT; Start 02/10/19 at 13:30 Miscellaneous Information 1 ea NOTE XX ; Start 02/10/19 at 18:30 Glucose (Glutose) 15 gm Q15M PRN PO DECREASED GLUCOSE; Start 02/10/19 at 18:30 Glucose (Glutose) 22.5 gm Q15M PRN PO DECREASED GLUCOSE; Start 02/10/19 at 18:30 Dextrose (D50w Syringe) 25 ml Q15M PRN IV DECREASED GLUCOSE; Start 02/10/19 at 18:30 Dextrose (D50w Syringe) 50 ml Q15M PRN IV DECREASED GLUCOSE; Start 02/10/19 at 18:30 Glucagon (Glucagen) 1 mg Q15M PRN IM DECREASED GLUCOSE; Start 02/10/19 at 18:30 Glucose (Glutose) 15 gm Q15M PRN BUCCAL DECREASED GLUCOSE; Start 02/10/19 at 18:30 Insulin Human Regular 100 unit/ Sodium Chloride 100 ml @ 0 mls/hr PER PROTOCOL IV Last administered on 02/11/19at 04:23; Admin Dose 4 MLS/HR; Start 02/11/19 at 04:00; Status Hold Miscellaneous Information (* Miscellaneous Pharmacy Order) Treatment of Hypoglycemia: 1.BG 51... Per protocol XX ; Start 02/11/19 at 03:30 Dextrose (D50w Syringe) 25 ml Q15M PRN IV .DECREASED GLUCOSE; Start 02/11/19 at 03:30 Dextrose (D50w Syringe) 50 ml Q15M PRN IV .DECREASED GLUCOSE; Start 02/11/19 at 03:30 Sodium Chloride 1,000 ml @ 40 mls/hr Q24H IV Last administered on 02/11/19at 11:12; Admin Dose 40 MLS/HR; Start 02/11/19 at 11:30 Albuterol/ Ipratropium (Duoneb) 3 ml Q4H RESP THERAPY PRN HHN SHORTNESS OF BREATH; Start 02/11/19 at 13:00 Carvedilol (Coreg) 6.25 mg BID PO Last administered on 02/11/19at 21:08; Admin Dose 6.25 MG; Start 02/11/19 at 14:00 Tramadol HCl (Ultram) 50 mg Q6H PRN PO MODERATE PAIN LEVEL 4-6; Start 02/11/19 at 17:30 Insulin Glargine (Lantus) 22 units DAILY@0800 SC Last administered on 02/12/19at 09:19; Admin Dose 22 UNITS; Start 02/12/19 at 08:00 Insulin Aspart (Novolog Insulin Pen) 6 unit WITH MEALS SC Last administered on 02/12/19 11:51; Admin Dose 6 UNIT; Start 02/11/19 at 18:00 Diagnostic Test (Pha) (Accu-Chek) 1 ea AC MEALS AND BEDTIME XX Last administered on 02/12/19 11:45; Admin Dose 1 EA; Start 02/11/19 at 21:00 Pantoprazole (Protonix Tab) 40 mg DAILY@06 PO Last administered on 02/12/19 05:06; Admin Dose 40 MG; Start 02/12/19 at 06:00 Al Hydrox/Mg Hydrox/Simethicone (Mag-Al Plus) 30 ml Q4H PRN PO GASTROINTESTINAL UPSET Last administered on 02/11/19 22:03; Admin Dose 30 ML; Start 02/11/19 at 22:00 Diphenhydramine HCl (Benadryl) 25 mg Q8 PRN IV ITCHING Last administered on 02/12/19 11:30; Admin Dose 25 MG; Start 02/12/19 at 11:30 HARRY ARSHAD MD Feb 12, 2019 13:52
--- NOTE | 2019-02-12 14:52 | CONS ---
Assessment/Plan Assessment/Plan Problems: (1) Diabetes mellitus type 1 with complications Onset Date: ~ 12/1979 Status: Chronic Comment: Fair BG control w/ mild hypoglycemia yesterday on previous insulin regimen and mild hyperglycemia this am. Now back in goal range. Cont. current insulin regimen. Pt. ok for d/c home from standpoint of DM management on current insulin doses to restart his insulin pump w/ new site after d/c. However, given fall in restroom today associated w/ presyncope, would defer to primary team to plan d/c appropriately. Consultation Date/Type/Reason Admit Date/Time Feb 10, 2019 at 06:26 Initial Consult Date 02/11/19 Type of Consult Endocrinology Reason for Consultation BG > 1700 mg/dL Requesting Provider: HARRY ARSHAD MD Date/Time of Note DATE: 02/12/19 TIME: 14:49 24 HR Interval Summary Constitutional: No no complaints (s/p fall in the bathroom and having pain in his tailbone) Detailed Summary Respiratory: no complaints Cardiovascular: lightheadedness (due to HD or benadryl and leading to fall) Gastrointestinal: no complaints Genitourinary: no complaints Musculoskeletal: bone/joint pain (tailbone) Skin: pruritis (treated w/ benadryl) Neurologic: no complaints Exam/Review of Systems Exam Vitals VS - Last 72 Hours, by Label Date Temp Pulse Resp B/P (MAP) Pulse Ox O2 O2 Flow FiO2 Time Delivery Rate 02/12/19 92 157/91 100 Room Air 13:44 (113) 02/12/19 93 12:40 02/12/19 92 12:35 02/12/19 16 149/80 92 Room Air 12:35 (103) 02/12/19 92 12:20 02/12/19 95 12:05 02/12/19 93 12:00 02/12/19 97 11:50 02/12/19 94 11:35 02/12/19 97.8 93 18 161/97 97 Room Air 11:34 (118) 02/12/19 91 11:20 02/12/19 93 11:05 02/12/19 94 10:50 02/12/19 96 10:35 02/12/19 95 10:20 02/12/19 92 10:05 02/12/19 94 09:50 02/12/19 95 09:35 02/12/19 95 18 148/86 97 Room Air 09:35 (106) 02/12/19 95 09:25 02/12/19 101 08:00 02/12/19 98.3 96 18 162/96 97 Room Air 07:30 (118) 02/12/19 98.3 93 18 176/94 96 Room Air 06:00 (121) 02/12/19 94 04:00 02/12/19 98.5 94 14 164/64 95 Room Air 04:00 (97) 02/12/19 94 14 168/85 95 Room Air 03:00 (112) 02/12/19 95 20 145/77 96 Room Air 02:00 (99) 02/12/19 93 12 144/87 98 Room Air 01:00 (106) 02/12/19 98.3 95 11 153/93 98 Room Air 00:00 (113) 02/12/19 95 00:00 02/11/19 97 17 151/100 98 Room Air 23:00 (117) 02/11/19 100 16 116/76 98 Room Air 22:00 (89) 02/11/19 104 15 163/121 98 Room Air 21:00 (135) 02/11/19 99 20:00 02/11/19 98.1 99 19 117/85 99 Room Air 20:00 (96) 02/11/19 100 16 104/66 99 Room Air 19:00 (79) 02/11/19 99 18 151/100 97 Room Air 18:00 (117) 02/11/19 21 17:23 02/11/19 97 11 146/87 97 Room Air 17:00 (106) 02/11/19 98.7 99 12 136/83 97 Room Air 16:00 (100) 02/11/19 98 16:00 02/11/19 105 157/95 97 Room Air 15:00 (115) 02/11/19 106 14 149/88 99 Room Air 14:00 (108) 02/11/19 108 18 155/98 98 Room Air 13:00 (117) 02/11/19 98.8 109 16 170/135 99 Room Air 12:00 (147) 02/11/19 109 12:00 02/11/19 108 18 140/53 99 Room Air 11:00 (82) 02/11/19 98.5 109 9 154/86 100 Nasal 10:00 (108) Cannula 02/11/19 109 20 153/88 100 Nasal 09:00 (109) Cannula 02/11/19 109 22 100 Nasal 2.0 08:39 Cannula 02/11/19 112 08:00 02/11/19 Nasal 2.0 08:00 Cannula 02/11/19 113 17 154/81 100 Nasal 08:00 (105) Cannula 02/11/19 100.5 111 21 171/90 100 Nasal 07:00 (117) Cannula 02/11/19 111 15 143/79 98 Room Air 06:00 (100) 02/11/19 108 15 158/90 100 Room Air 05:00 (112) 02/11/19 104 12 98 Nasal 2.0 04:49 Cannula 02/11/19 98.6 108 32 149/85 100 Room Air 04:00 (106) 02/11/19 108 04:00 02/11/19 111 22 121/63 96 Room Air 03:00 (82) 02/11/19 106 19 140/74 99 Room Air 02:00 (96) 02/11/19 2.0 01:24 02/11/19 103 16 97 Nasal 2.0 01:23 Cannula 02/11/19 104 9 111/61 96 Room Air 01:00 (78) 02/11/19 104 00:00 02/11/19 98.9 104 19 158/81 100 Room Air 00:00 (106) 02/10/19 103 19 148/83 100 Nasal 2.0 23:00 (104) Cannula 02/10/19 103 19 129/44 95 Nasal 2.0 22:00 (72) Cannula 02/10/19 107 23 136/69 99 21:00 (91) 02/10/19 103 20:00 02/10/19 98.5 103 13 121/64 100 Nasal 2.0 20:00 (83) Cannula 02/10/19 Nasal 2.0 20:00 Cannula 02/10/19 2.0 19:50 02/10/19 104 15 98 Nasal 2.0 19:48 Cannula 02/10/19 105 16 137/72 100 Nasal 2.0 19:00 (93) Cannula 02/10/19 102 14 134/60 93 Nasal 18:00 (84) Cannula 02/10/19 2.0 17:17 02/10/19 105 14 98 Nasal 2.0 17:13 Cannula 02/10/19 104 22 148/74 100 Nasal 17:00 (98) Cannula 02/10/19 98.7 101 27 148/87 100 Nasal 16:00 (107) Cannula 02/10/19 101 16:00 02/10/19 103 21 148/99 100 Nasal 15:00 (115) Cannula 02/10/19 103 27 129/58 98 Nasal 14:00 (81) Cannula 02/10/19 100 13:30 02/10/19 100 13:15 02/10/19 100 13:00 02/10/19 101 19 127/99 98 Nasal 13:00 (108) Cannula 02/10/19 100 12:45 02/10/19 100 12:30 02/10/19 100 12:15 02/10/19 100 12:00 02/10/19 98.8 100 19 128/80 98 Nasal 12:00 (96) Cannula 02/10/19 100 12:00 02/10/19 99 11:45 02/10/19 99 11:30 02/10/19 98 11:15 02/10/19 99 23 142/82 99 Nasal 11:00 (102) Cannula 02/10/19 98 11:00 02/10/19 99 10:45 02/10/19 95 17 136/71 96 10:30 (92) 02/10/19 99 10:30 02/10/19 101 20 132/85 98 Nasal 4.0 10:30 (101) Cannula 02/10/19 95 12 143/71 98 Nasal 10:00 (95) Cannula 02/10/19 96 18 157/70 98 Nasal 09:00 (99) Cannula 02/10/19 96 18 152/72 90 08:30 (98) 02/10/19 Nasal 4.0 08:00 Cannula 02/10/19 96 08:00 02/10/19 98.5 96 24 111/99 98 Nasal 08:00 (103) Cannula 02/10/19 98 27 106/59 98 Nasal 07:30 (75) Cannula 02/10/19 98.1 106 22 180/70 99 Nasal 4.0 07:15 (106) Cannula 02/10/19 114 20 95 Nasal 4.0 36 07:00 Cannula 02/10/19 110 22 141/74 98 Nasal 4.0 06:26 (96) Cannula 02/10/19 78 22 115/52 98 Nasal 4.0 06:17 (73) Cannula 02/10/19 108 18 104/60 100 05:10 (75) 02/10/19 98.6 101 18 120/65 100 Room Air 05:10 (83) Vital Signs Date Temp Pulse Resp B/P (MAP) Pulse Ox O2 O2 Flow FiO2 Time Delivery Rate 02/12/19 92 157/91 100 Room Air 13:44 (113) 02/12/19 16 12:35 02/12/19 97.8 11:34 02/11/19 21 17:23 02/11/19 2.0 08:39 Intake and Output 02/11/19 02/11/19 02/12/19 1515:00 23:00 07:00 IntakeIntake Total 715 ml 1220 ml 450 ml OutputOutput Total 750 ml 700 ml 1300 ml BalanceBalance -35 ml 520 ml -850 ml Constitutional: alert, oriented, well developed Psych: anxiety Respiratory: clear to auscultation, normal air movement Cardiovascular: regular rate and rhythm, nl pulses; No edema, No murmurs/extra sounds, No rub Gastrointestinal: soft, nl liver, spleen, non-tender, bowel sounds; No mass, No rebound or guarding Musculoskeletal: nl extremities to inspection Extremities: normal pulses; No cyanosis, No clubbing, No edema 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: 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, nl mental status, nl speech, nl strength Additional Comments Bedside Glucose - 72 Hours Test 02/10/19 05:12 02/10/19 06:00 02/10/19 06:14 02/10/19 06:57 Bedside > 595 > 595 > 595 > 595 Glucose mg/dL (70-220) mg/dL (70-220) mg/dL (70-220) mg/dL (70-220) *H *H *H *H Test 02/10/19 07:40 02/10/19 08:43 02/10/19 09:48 02/10/19 10:59 Bedside > 595 > 595 > 595 > 595 Glucose mg/dL (70-220) mg/dL (70-220) mg/dL (70-220) mg/dL (70-220) *H *H *H *H Test 02/10/19 11:54 02/10/19 12:57 02/10/19 13:45 02/10/19 15:12 Bedside > 595 433 352 285 Glucose mg/dL (70-220) mg/dL (70-220) mg/dL (70-220) mg/dL (70-220) *H *H H H Test 02/10/19 16:14 02/10/19 17:00 02/10/19 17:59 02/10/19 19:04 Bedside 188 116 73 52 Glucose mg/dL (70-220) mg/dL (70-220) mg/dL (70-220) mg/dL (70-220) L Test 02/10/19 21:08 02/11/19 00:46 02/11/19 02:59 02/11/19 04:17 Bedside 196 365 348 351 Glucose mg/dL (70-220) mg/dL (70-220) mg/dL (70-220) mg/dL (70-220) H H H Test 02/11/19 05:21 02/11/19 06:22 02/11/19 07:28 02/11/19 08:30 Bedside 338 302 223 136 Glucose mg/dL (70-220) mg/dL (70-220) mg/dL (70-220) mg/dL (70-220) H H H Test 02/11/19 09:34 02/11/19 10:28 02/11/19 11:32 02/11/19 11:57 Bedside 115 125 77 73 Glucose mg/dL (70-220) mg/dL (70-220) mg/dL (70-220) mg/dL (70-220) Test 02/11/19 13:27 02/11/19 17:11 02/11/19 17:27 02/11/19 21:07 Bedside 130 69 72 164 Glucose mg/dL (70-220) mg/dL (70-220) mg/dL (70-220) mg/dL (70-220) L Test 02/12/19 08:18 02/12/19 11:43 Bedside 220 161 Glucose mg/dL (70-220) mg/dL (70-220) Results Result Diagram: 02/12/19 0505 02/12/19 0505 Results 24hrs Laboratory Tests Test 02/11/19 17:11 02/11/19 17:27 02/11/19 21:07 02/12/19 05:05 Bedside Glucose 69 L 72 164 White Blood Count 8.2 # Red Blood Count 3.67 L Hemoglobin 11.5 L Hematocrit 34.2 L Mean Corpuscular 93.2 Volume Mean Corpuscular 31.3 Hemoglobin Mean Corpuscular 33.6 Hemoglobin Concent Red Cell 14.6 H Distribution Width Platelet Count 202 Mean Platelet Volume 12.1 H Immature 0.200 Granulocytes % Neutrophils % 73.4 Lymphocytes % 15.5 Monocytes % 8.0 Eosinophils % 2.4 Basophils % 0.5 Nucleated Red Blood 0.2 H Cells % Immature 0.020 Granulocytes # Neutrophils # 6.0 Lymphocytes # 1.3 Monocytes # 0.7 Eosinophils # 0.2 Basophils # 0.0 Nucleated Red Blood 0.0 Cells # Sodium Level 133 L Potassium Level 4.1 Chloride Level 101 Carbon Dioxide Level 25 Anion Gap 7 Blood Urea Nitrogen 37 H Creatinine 4.59 H Est Glomerular 14 L Filtrat Rate mL/min Glucose Level 248 #H Calcium Level 8.9 Test 02/12/19 08:18 02/12/19 11:43 Bedside Glucose 220 161 Medications Medication Current Medications Ondansetron HCl (Zofran Inj) 4 mg Q6H PRN IV NAUSEA AND/OR VOMITING; Start 02/10/19 at 07:30 Acetaminophen (Tylenol Liquid) 650 mg Q6H PRN PO PAIN LEVEL 1-3 OR FEVER; Start 02/10/19 at 07:30 Heparin Sodium (Porcine) (Heparin (5000 Units/1ml)) 5,000 unit Q8 SC Last administered on 02/12/19at 05:28; Admin Dose 5,000 UNIT; Start 02/10/19 at 07:30 Heparin Sodium (Porcine) (Heparin (1000 Units/ml)) 4,500 unit AFTER DIALYSIS CATHETER Last administered on 02/12/19at 12:49; Admin Dose 4,500 UNIT; Start 02/10/19 at 13:30 Miscellaneous Information 1 ea NOTE XX ; Start 02/10/19 at 18:30 Glucose (Glutose) 15 gm Q15M PRN PO DECREASED GLUCOSE; Start 02/10/19 at 18:30 Glucose (Glutose) 22.5 gm Q15M PRN PO DECREASED GLUCOSE; Start 02/10/19 at 18:30 Dextrose (D50w Syringe) 25 ml Q15M PRN IV DECREASED GLUCOSE; Start 02/10/19 at 18:30 Dextrose (D50w Syringe) 50 ml Q15M PRN IV DECREASED GLUCOSE; Start 02/10/19 at 18:30 Glucagon (Glucagen) 1 mg Q15M PRN IM DECREASED GLUCOSE; Start 02/10/19 at 18:30 Glucose (Glutose) 15 gm Q15M PRN BUCCAL DECREASED GLUCOSE; Start 02/10/19 at 18:30 Insulin Human Regular 100 unit/ Sodium Chloride 100 ml @ 0 mls/hr PER PROTOCOL IV Last administered on 02/11/19at 04:23; Admin Dose 4 MLS/HR; Start 02/11/19 at 04:00; Status Hold Miscellaneous Information (* Miscellaneous Pharmacy Order) Treatment of Hypoglycemia: 1.BG 51... Per protocol XX ; Start 02/11/19 at 03:30 Dextrose (D50w Syringe) 25 ml Q15M PRN IV .DECREASED GLUCOSE; Start 02/11/19 at 03:30 Dextrose (D50w Syringe) 50 ml Q15M PRN IV .DECREASED GLUCOSE; Start 02/11/19 at 03:30 Sodium Chloride 1,000 ml @ 40 mls/hr Q24H IV Last administered on 02/11/19at 11:12; Admin Dose 40 MLS/HR; Start 02/11/19 at 11:30 Albuterol/ Ipratropium (Duoneb) 3 ml Q4H RESP THERAPY PRN HHN SHORTNESS OF BREATH; Start 02/11/19 at 13:00 Carvedilol (Coreg) 6.25 mg BID PO Last administered on 02/11/19at 21:08; Admin Dose 6.25 MG; Start 02/11/19 at 14:00 Tramadol HCl (Ultram) 50 mg Q6H PRN PO MODERATE PAIN LEVEL 4-6; Start 02/11/19 at 17:30 Insulin Glargine (Lantus) 22 units DAILY@0800 SC Last administered on 02/12/19at 09:19; Admin Dose 22 UNITS; Start 02/12/19 at 08:00 Insulin Aspart (Novolog Insulin Pen) 6 unit WITH MEALS SC Last administered on 02/12/19at 11:51; Admin Dose 6 UNIT; Start 02/11/19 at 18:00 Diagnostic Test (Pha) (Accu-Chek) 1 ea AC MEALS AND BEDTIME XX Last administered on 02/12/19 11:45; Admin Dose 1 EA; Start 02/11/19 at 21:00 Pantoprazole (Protonix Tab) 40 mg DAILY@06 PO Last administered on 02/12/19 05:06; Admin Dose 40 MG; Start 02/12/19 at 06:00 Al Hydrox/Mg Hydrox/Simethicone (Mag-Al Plus) 30 ml Q4H PRN PO GASTROINTESTINAL UPSET Last administered on 02/11/19 22:03; Admin Dose 30 ML; Start 02/11/19 at 22:00 Diphenhydramine HCl (Benadryl) 25 mg Q8 PRN IV ITCHING Last administered on 02/12/19 11:30; Admin Dose 25 MG; Start 02/12/19 at 11:30 ANDRES HIGUERA MD Feb 12, 2019 14:52
--- NOTE | 2019-02-12 15:33 | PN ---
Date/Time of Note Date/Time of Note DATE: 02/12/19 TIME: 15:28 Assessment/Plan VTE Prophylaxis Risk score (from Nsg)>0 risk: 3 Pharmacological prophylaxis: heparin Lines/Catheters IV Catheter Type (from Nrsg): Peripheral IV Urinary Cath still in place: No Assessment/Plan Hospital Course 1. Acute metabolic encephalopathy: Multifactorial secondary to uremia, severe hyperglycemia, dehydration-improved Status post insulin drip and transitioned to subcu insulin Hemodialysis per renal 2. Severe hyperkalemia-resolved Potassium has improved with insulin and dialysis 3. DKA-resolved Status post insulin drip, transitioned to subcu insulin Endocrinology consultation appreciated 4. End-stage renal disease with uremia and hyperkalemia Dialysis per renal 5. Metabolic acidosis secondary to renal failure and DKA Insulin and dialysis 6. Pseudohyponatremia secondary to hyperglycemia 7. Type 1 diabetes: Patient has an insulin pump which is not functioning properly A1c of 11, pump turned off Subcu insulin Endocrinology consultation initiated Follow-up on clinical nurse educator recommendations 8. History of systolic cardiomyopathy Echo shows an EF 50% Cardiology consultation appreciated 9. Dyslipidemia: Resume statin as indicated 10. Hypertension: Resume home meds when indicated 11. Gout: Hold allopurinol at the current time 12. Fall Patient fell on his buttocks, follow-up on pelvic x-ray Prophylaxis: Heparin DC planning: Anticipate DC home tomorrow Result Diagram: 02/12/19 0505 02/12/19 0505 Results 24hrs Laboratory Tests Test 02/11/19 17:11 02/11/19 17:27 02/11/19 21:07 02/12/19 05:05 Bedside Glucose 69 L 72 164 White Blood Count 8.2 # Red Blood Count 3.67 L Hemoglobin 11.5 L Hematocrit 34.2 L Mean Corpuscular 93.2 Volume Mean Corpuscular 31.3 Hemoglobin Mean Corpuscular 33.6 Hemoglobin Concent Red Cell 14.6 H Distribution Width Platelet Count 202 Mean Platelet Volume 12.1 H Immature 0.200 Granulocytes % Neutrophils % 73.4 Lymphocytes % 15.5 Monocytes % 8.0 Eosinophils % 2.4 Basophils % 0.5 Nucleated Red Blood 0.2 H Cells % Immature 0.020 Granulocytes # Neutrophils # 6.0 Lymphocytes # 1.3 Monocytes # 0.7 Eosinophils # 0.2 Basophils # 0.0 Nucleated Red Blood 0.0 Cells # Sodium Level 133 L Potassium Level 4.1 Chloride Level 101 Carbon Dioxide Level 25 Anion Gap 7 Blood Urea Nitrogen 37 H Creatinine 4.59 H Est Glomerular 14 L Filtrat Rate mL/min Glucose Level 248 #H Calcium Level 8.9 Test 02/12/19 08:18 02/12/19 11:43 Bedside Glucose 220 161 Subjective 24 Hr Interval Summary Constitutional: no complaints Exam/Review of Systems Exam Vitals Vital Signs Date Temp Pulse Resp B/P (MAP) Pulse Ox O2 O2 Flow FiO2 Time Delivery Rate 02/12/19 97.9 88 20 167/98 97 Room Air 15:11 (121) 02/11/19 21 17:23 02/11/19 2.0 08:39 Intake and Output 02/11/19 02/11/19 02/12/19 1515:00 23:00 07:00 IntakeIntake Total 715 ml 1220 ml 450 ml OutputOutput Total 750 ml 700 ml 1300 ml BalanceBalance -35 ml 520 ml -850 ml Constitutional: alert, oriented Respiratory: clear to auscultation Cardiovascular: regular rate and rhythm Gastrointestinal: soft; No distended Musculoskeletal: nl extremities to inspection Results Results 24hrs Laboratory Tests Test 02/11/19 17:11 02/11/19 17:27 02/11/19 21:07 02/12/19 05:05 Bedside Glucose 69 L 72 164 White Blood Count 8.2 # Red Blood Count 3.67 L Hemoglobin 11.5 L Hematocrit 34.2 L Mean Corpuscular 93.2 Volume Mean Corpuscular 31.3 Hemoglobin Mean Corpuscular 33.6 Hemoglobin Concent Red Cell 14.6 H Distribution Width Platelet Count 202 Mean Platelet Volume 12.1 H Immature 0.200 Granulocytes % Neutrophils % 73.4 Lymphocytes % 15.5 Monocytes % 8.0 Eosinophils % 2.4 Basophils % 0.5 Nucleated Red Blood 0.2 H Cells % Immature 0.020 Granulocytes # Neutrophils # 6.0 Lymphocytes # 1.3 Monocytes # 0.7 Eosinophils # 0.2 Basophils # 0.0 Nucleated Red Blood 0.0 Cells # Sodium Level 133 L Potassium Level 4.1 Chloride Level 101 Carbon Dioxide Level 25 Anion Gap 7 Blood Urea Nitrogen 37 H Creatinine 4.59 H Est Glomerular 14 L Filtrat Rate mL/min Glucose Level 248 #H Calcium Level 8.9 Test 02/12/19 08:18 02/12/19 11:43 Bedside Glucose 220 161 Medications Medication Current Medications Ondansetron HCl (Zofran Inj) 4 mg Q6H PRN IV NAUSEA AND/OR VOMITING; Start 02/10/19 at 07:30 Acetaminophen (Tylenol Liquid) 650 mg Q6H PRN PO PAIN LEVEL 1-3 OR FEVER; Start 02/10/19 at 07:30 Heparin Sodium (Porcine) (Heparin (5000 Units/1ml)) 5,000 unit Q8 SC Last administered on 02/12/19at 05:28; Admin Dose 5,000 UNIT; Start 02/10/19 at 07:30 Heparin Sodium (Porcine) (Heparin (1000 Units/ml)) 4,500 unit AFTER DIALYSIS CATHETER Last administered on 02/12/19at 12:49; Admin Dose 4,500 UNIT; Start 02/10/19 at 13:30 Miscellaneous Information 1 ea NOTE XX ; Start 02/10/19 at 18:30 Glucose (Glutose) 15 gm Q15M PRN PO DECREASED GLUCOSE; Start 02/10/19 at 18:30 Glucose (Glutose) 22.5 gm Q15M PRN PO DECREASED GLUCOSE; Start 02/10/19 at 18:30 Dextrose (D50w Syringe) 25 ml Q15M PRN IV DECREASED GLUCOSE; Start 02/10/19 at 18:30 Dextrose (D50w Syringe) 50 ml Q15M PRN IV DECREASED GLUCOSE; Start 02/10/19 at 18:30 Glucagon (Glucagen) 1 mg Q15M PRN IM DECREASED GLUCOSE; Start 02/10/19 at 18:30 Glucose (Glutose) 15 gm Q15M PRN BUCCAL DECREASED GLUCOSE; Start 02/10/19 at 18:30 Insulin Human Regular 100 unit/ Sodium Chloride 100 ml @ 0 mls/hr PER PROTOCOL IV Last administered on 02/11/19at 04:23; Admin Dose 4 MLS/HR; Start 02/11/19 at 04:00; Status Hold Miscellaneous Information (* Miscellaneous Pharmacy Order) Treatment of Hypoglycemia: 1.BG 51... Per protocol XX ; Start 02/11/19 at 03:30 Dextrose (D50w Syringe) 25 ml Q15M PRN IV .DECREASED GLUCOSE; Start 02/11/19 at 03:30 Dextrose (D50w Syringe) 50 ml Q15M PRN IV .DECREASED GLUCOSE; Start 02/11/19 at 03:30 Sodium Chloride 1,000 ml @ 40 mls/hr Q24H IV Last administered on 02/11/19 11:12; Admin Dose 40 MLS/HR; Start 02/11/19 at 11:30 Albuterol/ Ipratropium (Duoneb) 3 ml Q4H RESP THERAPY PRN HHN SHORTNESS OF BREATH; Start 02/11/19 at 13:00 Carvedilol (Coreg) 6.25 mg BID PO Last administered on 02/11/19 21:08; Admin Dose 6.25 MG; Start 02/11/19 at 14:00 Tramadol HCl (Ultram) 50 mg Q6H PRN PO MODERATE PAIN LEVEL 4-6; Start 02/11/19 at 17:30 Insulin Glargine (Lantus) 22 units DAILY@0800 SC Last administered on 02/12/19 09:19; Admin Dose 22 UNITS; Start 02/12/19 at 08:00 Insulin Aspart (Novolog Insulin Pen) 6 unit WITH MEALS SC Last administered on 02/12/19 11:51; Admin Dose 6 UNIT; Start 02/11/19 at 18:00 Diagnostic Test (Pha) (Accu-Chek) 1 ea AC MEALS AND BEDTIME XX Last administered on 02/12/19 11:45; Admin Dose 1 EA; Start 02/11/19 at 21:00 Pantoprazole (Protonix Tab) 40 mg DAILY@06 PO Last administered on 02/12/19 05:06; Admin Dose 40 MG; Start 02/12/19 at 06:00 Al Hydrox/Mg Hydrox/Simethicone (Mag-Al Plus) 30 ml Q4H PRN PO GASTROINTESTINAL UPSET Last administered on 02/11/19 22:03; Admin Dose 30 ML; Start 02/11/19 at 22:00 Diphenhydramine HCl (Benadryl) 25 mg Q8 PRN IV ITCHING Last administered on 02/12/19 11:30; Admin Dose 25 MG; Start 02/12/19 at 11:30 VALENTINA MART Feb 12, 2019 15:33
[2019-02-12] MEDS ORDERED: ZOLPIDEM 5 MG TAB PO PRN (19:00)
[2019-02-12] MEDS ORDERED: INSULIN ASPART [NOVOLOG] 3 ML PEN SC ONE (21:30)
[2019-02-12] MEDS ORDERED: ACCU-CHEK XX ONE (21:30)
[2019-02-13] VITALS (8 sets, daily range): BP systolic 108–163; BP diastolic 60–81; PULSE 85–98; RESP 18–20
[2019-02-13] MEDS: PANTOPRAZOLE (EC) 40 MG TAB PO SCH (06:00)
[2019-02-13] MEDS: HEPARIN 5,000 UNIT/1 ML VIAL SC SCH (06:05)
--- NOTE | 2019-02-13 07:55 | CONS ---
Consult Date/Type/Reason Admit Date/Time Feb 10, 2019 at 06:26 Initial Consult Date 02/10/19 Type of Consultation: cv Requesting Provider: HARRY ARSHAD MD Date/Time of Note DATE: 02/13/19 TIME: 07:54 Subjective Interventional cardiology follow-up progress note Subjective: Discussed with the staff telemetry was reviewed. Patient remains in sinus rhythm. No chest pain or pressure. Patient is off insulin drip AND in tele No bleeding is reported His old records was reviewed. Patient has had a coronary angiography done about a year level in 2018 which showed no obstructive coronary artery disease no cp now Objective: General: no acute distress HEENT: NC/AT. pupils are equal. round. NECK: . no stridor. CV: RRR. systolic murmur; no gallop or rubs. PULM: no wheezing or rhonchi. GI: SOFT, NT, ND, no rebound or guarding Extremity: trace B/L LE edema. no clubbing. neuro: awake and alert Psych: calm rectal: deferred EKG done February 10, 2019 at 5:26 AM which was personally reviewed showed idioventricular rhythm EKG 706 showed normal sinus rhythm with frequent PACs. The vertical conduction delay Echocardiogram done February 10, 2019 shows: Lower limits of normal systolic function. Normal left ventricular cavity size. Normal left ventricular wall thickness. Ejection fraction is visually estimated at 50 %. Tissue Doppler/Mitral Doppler indices are within normal limits. Mild mitral leaflet calcification. Mild mitral annular calcification. Trace mitral regurgitation. No significant aortic stenosis or insufficiency. Aortic cusps appear mildly calcified. Normal appearance of the tricuspid valve. The estimated Peak RVSP is 39 mmHg. There is mild tricuspid regurgitation. Normal pericardium with no significant pericardial effusion. There is an anterior echo free space consistent with epicardial fat pad. Objective Vitals Vital Signs Date Temp Pulse Resp B/P (MAP) Pulse Ox O2 O2 Flow FiO2 Time Delivery Rate 02/13/19 97.5 98 20 163/81 95 Room Air 07:31 (108) 02/11/19 21 17:23 02/11/19 2.0 08:39 Intake and Output 02/12/19 02/12/19 02/13/19 1515:00 23:00 07:00 IntakeIntake Total 240 ml 480 ml 550 ml OutputOutput Total 3400 ml 650 ml 300 ml BalanceBalance -3160 ml -170 ml 250 ml Results/Medications Result Diagram: 02/13/19 0611 02/12/19 0505 Results 24 hrs Laboratory Tests Test 02/12/19 08:18 02/12/19 11:43 02/12/19 17:40 02/12/19 20:59 Bedside Glucose 220 161 164 237 H Test 02/12/19 21:55 02/13/19 00:39 02/13/19 06:11 Bedside Glucose 211 153 White Blood Count 9.1 Red Blood Count 3.90 L Hemoglobin 12.2 L Hematocrit 37.0 L Mean Corpuscular 94.9 Volume Mean Corpuscular 31.3 Hemoglobin Mean Corpuscular 33.0 Hemoglobin Concent Red Cell 14.6 H Distribution Width Platelet Count 232 Mean Platelet Volume 11.9 H Immature 0.600 H Granulocytes % Neutrophils % 73.2 Lymphocytes % 15.2 Monocytes % 7.2 Eosinophils % 3.1 Basophils % 0.7 Nucleated Red Blood 0.2 H Cells % Immature 0.050 H Granulocytes # Neutrophils # 6.7 Lymphocytes # 1.4 Monocytes # 0.7 Eosinophils # 0.3 Basophils # 0.1 Nucleated Red Blood 0.0 Cells # Home Meds Reported Medications Insulin Lispro (Humalog) 100 Unit/1 Ml Cartridge, 100 UNIT SQ PUMP, EA PT HAS PUMP 01/14/19 Amitriptyline Hcl* (Amitriptyline Hcl*) 25 Mg Tablet, 25 MG PO QHS, #30 TAB 11/18/18 Tramadol Hcl* (Ultram*) 50 Mg Tablet, 50 MG PO Q6H PRN for PAIN, TAB 09/18/18 Omeprazole* (Omeprazole*) 40 Mg Capsule.dr, 40 MG PO DAILY, #30 CAP 09/18/18 Allopurinol* (Allopurinol*) 100 Mg Tablet, 100 MG PO DAILY, TAB 09/18/18 Aspirin (Low Dose Aspirin) 81 Mg Tablet.dr, 81 MG PO DAILY, #30 TAB 09/18/18 Carvedilol* (Carvedilol*) 6.25 Mg Tablet, 6.25 MG PO BID, #60 TAB 09/18/18 Gabapentin* (Gabapentin*) 100 Mg Capsule, 100 MG PO TID, #90 CAP 09/18/18 Medications Current Medications Ondansetron HCl (Zofran Inj) 4 mg Q6H PRN IV NAUSEA AND/OR VOMITING; Start 02/10/19 at 07:30 Acetaminophen (Tylenol Liquid) 650 mg Q6H PRN PO PAIN LEVEL 1-3 OR FEVER; Start 02/10/19 at 07:30 Heparin Sodium (Porcine) (Heparin (5000 Units/1ml)) 5,000 unit Q8 SC Last administered on 02/13/19at 06:05; Admin Dose 5,000 UNIT; Start 02/10/19 at 07:30 Heparin Sodium (Porcine) (Heparin (1000 Units/ml)) 4,500 unit AFTER DIALYSIS CATHETER Last administered on 02/12/19at 12:49; Admin Dose 4,500 UNIT; Start 02/10/19 at 13:30 Miscellaneous Information 1 ea NOTE XX ; Start 02/10/19 at 18:30 Glucose (Glutose) 15 gm Q15M PRN PO DECREASED GLUCOSE; Start 02/10/19 at 18:30 Glucose (Glutose) 22.5 gm Q15M PRN PO DECREASED GLUCOSE; Start 02/10/19 at 18:30 Dextrose (D50w Syringe) 25 ml Q15M PRN IV DECREASED GLUCOSE; Start 02/10/19 at 18:30 Dextrose (D50w Syringe) 50 ml Q15M PRN IV DECREASED GLUCOSE; Start 02/10/19 at 18:30 Glucagon (Glucagen) 1 mg Q15M PRN IM DECREASED GLUCOSE; Start 02/10/19 at 18:30 Glucose (Glutose) 15 gm Q15M PRN BUCCAL DECREASED GLUCOSE; Start 02/10/19 at 18:30 Insulin Human Regular 100 unit/ Sodium Chloride 100 ml @ 0 mls/hr PER PROTOCOL IV Last administered on 02/11/19at 04:23; Admin Dose 4 MLS/HR; Start 02/11/19 at 04:00; Status Hold Miscellaneous Information (* Miscellaneous Pharmacy Order) Treatment of Hypoglycemia: 1.BG 51... Per protocol XX ; Start 02/11/19 at 03:30 Dextrose (D50w Syringe) 25 ml Q15M PRN IV .DECREASED GLUCOSE; Start 02/11/19 at 03:30 Dextrose (D50w Syringe) 50 ml Q15M PRN IV .DECREASED GLUCOSE; Start 02/11/19 at 03:30 Sodium Chloride 1,000 ml @ 40 mls/hr Q24H IV Last administered on 02/11/19 11:12; Admin Dose 40 MLS/HR; Start 02/11/19 at 11:30 Albuterol/ Ipratropium (Duoneb) 3 ml Q4H RESP THERAPY PRN HHN SHORTNESS OF BREATH; Start 02/11/19 at 13:00 Carvedilol (Coreg) 6.25 mg BID PO Last administered on 02/12/19 21:04; Admin Dose 6.25 MG; Start 02/11/19 at 14:00 Tramadol HCl (Ultram) 50 mg Q6H PRN PO MODERATE PAIN LEVEL 4-6; Start 02/11/19 at 17:30 Insulin Glargine (Lantus) 22 units DAILY@0800 SC Last administered on 02/12/19 09:19; Admin Dose 22 UNITS; Start 02/12/19 at 08:00 Insulin Aspart (Novolog Insulin Pen) 6 unit WITH MEALS SC Last administered on 02/12/19 17:50; Admin Dose 6 UNIT; Start 02/11/19 at 18:00 Diagnostic Test (Pha) (Accu-Chek) 1 ea AC MEALS AND BEDTIME XX Last administered on 02/12/19 21:02; Admin Dose 1 EA; Start 02/11/19 at 21:00 Pantoprazole (Protonix Tab) 40 mg DAILY@06 PO Last administered on 02/13/19 06:00; Admin Dose 40 MG; Start 02/12/19 at 06:00 Al Hydrox/Mg Hydrox/Simethicone (Mag-Al Plus) 30 ml Q4H PRN PO GASTROINTESTINAL UPSET Last administered on 02/11/19 22:03; Admin Dose 30 ML; Start 02/11/19 at 22:00 Diphenhydramine HCl (Benadryl) 25 mg Q8 PRN IV ITCHING Last administered on 02/12/19 11:30; Admin Dose 25 MG; Start 02/12/19 at 11:30 Zolpidem Tartrate (Ambien) 5 mg HS PRN PO INSOMNIA Last administered on 02/12/19 21:04; Admin Dose 5 MG; Start 02/12/19 at 19:00 Assessment/Plan Hospital Course (Demo Recall) 1. Abnormal EKG secondary to severe hyperkalemia, : resolved now 2. s/p Diabetic ketoacidosis and severe hyperglycemia 3. hyponatremia secondary to above 4. Cardiomyopathy: EF Appears to have improved now 5. History of hypertension 6. Severe hyperkalemia of more than 9: Has been corrected with dialysis now 7. Encephalopathy 8. Severe hyperglycemia and hyperosmolar coma/encephalopathy: Currently on insulin drip 9. Mildly abnormal troponin secondary to above Recommendations: Correction of potassium as per renal. Hyponatremia correction as per renal. We will closely monitor him on telemetry in ICU.. Patient is currently on insul in drip in ICU. Repeat EKG have shown resolution of wide-complex rhythm. Monitor closely. 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 cont med therapy only Thank you for this referral. We will continue to follow along with you SUPRIYA PRITCHARD MD [facility] SUPRIYA PRITCHARD MD Feb 13, 2019 07:55
[2019-02-13] MEDS: INSULIN GLARGINE [LANTus] (100 UNITS/ML) SYG SC SCH (08:00)
[2019-02-13] MEDS: INSULIN ASPART [NOVOLOG] 3 ML PEN SC SCH (09:07)
[2019-02-13] MEDS ORDERED: LANT3I SC (10:38)
[2019-02-13] MEDS ORDERED: NOVO3I SC (10:38)
--- NOTE | 2019-02-13 10:39 | PDOCDIS ---
Discharge Instructions CONDITION [id number] Patient Condition: [id number] Good HOME CARE INSTRUCTIONS: [id number] Special Diet: [id number] LOW CARB ACTIVITY: [id number] Activity Restrictions: [id number] Restrictions FOLLOW UP/APPOINTMENTS Follow-up Plan FOLLOW UP WITH YOUR PCP IN 1-2 WEEKS, FOLLOW UP WITH HOME HEALTH VALENTINA MART Feb 13, 2019 10:39
[2019-02-13] MEDS ORDERED: INSULIN ASPART [NOVOLOG] 3 ML PEN SC SCH (11:50)
--- NOTE | 2019-02-13 15:20 | DS ---
Date/Time of Note Date/Time of Note DATE: 02/13/19 TIME: 15:16 Discharge Summary Admission/Discharge Info Admit Date/Time Feb 10, 2019 at 06:26 Discharge Date/Time Feb 13, 2019 at 13:28 Discharge Diagnosis 1. Acute metabolic encephalopathy: Multifactorial secondary to uremia, severe hyperglycemia, dehydration-resolved Status post insulin drip and transitioned to subcu insulin 2. Severe hyperkalemia-resolved Potassium has improved with insulin and dialysis 3. DKA-resolved Status post insulin drip, transitioned to subcu insulin Endocrinology consultation appreciated 4. End-stage renal disease with uremia and hyperkalemia Dialysis per renal 5. Metabolic acidosis secondary to renal failure and DKA-resolved Insulin and dialysis 6. Pseudohyponatremia secondary to hyperglycemia 7. Type 1 diabetes: Patient has an insulin pump which is not functioning properly A1c of 11, pump turned off DC with subcu insulin with plans to address repairing of insulin pump as outpatient Endocrinology consultation and tobacco prevention health educator consultation appreciated 8. History of systolic cardiomyopathy Echo shows an EF 50% Cardiology consultation appreciated 9. Dyslipidemia: Resume statin 10. Hypertension: Resume home meds 11. Gout: Continue home meds 12. Fall Patient fell on his buttocks, pelvic x-ray with no fracture Patient offered home health but has refused Patient Condition: Good Hospital Course Patient is a 48-year-old male with a history of type 1 diabetes, end-stage renal disease who presents with acute metabolic encephalopathy secondary to DKA and uremia. Patient was placed on insulin drip and dialysis was initiated. Patient mentation did improve and patient was transition to a subcu regimen. Patient was seen by endocrinology and tobacco prevention health educator and appeared that patient's insulin pump was malfunctioning, recognition was for discharging patient on Lantus and NovoLog with plans to address malfunctioning insulin pump as an outpatient. incident response manager did offer home health but patient refused. Patient was stable for DC, on the day of discharge patient's vitals, labs and physical exam are stable. Home Meds Active Scripts Insulin Glargine* (Lantus*) 100 Unit/Ml Soln, 22 UNIT SC DAILY, #1 VIAL Prov:VALENTINA MART 02/13/19 Insulin Aspart* (Novolog Insulin Pen*) 100 Unit/Ml Soln, 6 UNIT SC WITH MEALS, #1 VIAL Prov:VALENTINA MART 02/13/19 Reported Medications Insulin Lispro (Humalog) 100 Unit/1 Ml Cartridge, 100 UNIT SQ PUMP, EA PT HAS PUMP 01/14/19 Amitriptyline Hcl* (Amitriptyline Hcl*) 25 Mg Tablet, 25 MG PO QHS, #30 TAB 11/18/18 Tramadol Hcl* (Ultram*) 50 Mg Tablet, 50 MG PO Q6H PRN for PAIN, TAB 09/18/18 Omeprazole* (Omeprazole*) 40 Mg Capsule.dr, 40 MG PO DAILY, #30 CAP 09/18/18 Allopurinol* (Allopurinol*) 100 Mg Tablet, 100 MG PO DAILY, TAB 09/18/18 Aspirin (Low Dose Aspirin) 81 Mg Tablet.dr, 81 MG PO DAILY, #30 TAB 09/18/18 Carvedilol* (Carvedilol*) 6.25 Mg Tablet, 6.25 MG PO BID, #60 TAB 09/18/18 Gabapentin* (Gabapentin*) 100 Mg Capsule, 100 MG PO TID, #90 CAP 09/18/18 Follow-up Plan FOLLOW UP WITH YOUR PCP IN 1-2 WEEKS, FOLLOW UP WITH HOME HEALTH Primary Care Provider [facility] Time spent on discharge: > 30 minutes VALENTINA MART Feb 13, 2019 15:20
== END 2019-02-13 13:28 | disposition home health service (06) | DRG 637 ==
LOC: E/R 05:00 → ICU 06:26 → TEL 02-12 05:50
PROVIDERS: ADMIT Family Medicine; ATTEND Internal Medicine
PROC: 4A033R1 Measurement of Arterial Saturation, Peripheral, Percutaneous Approach (ICD-10-PCS; principal; 2019-02-10)
PROC: 5A1D70Z Performance of Urinary Filtration, Intermittent, Less than 6 Hours Per Day (ICD-10-PCS; 2019-02-10)
DX: E10.10 Type 1 diabetes mellitus with ketoacidosis without coma (principal); N18.6 End stage renal disease; G93.41 Metabolic encephalopathy; I12.0 Hypertensive chronic kidney disease with stage 5 chronic kidney disease or end stage renal disease; E87.1 Hypo-osmolality and hyponatremia; I42.9 Cardiomyopathy, unspecified; T85.614A Breakdown (mechanical) of insulin pump, initial encounter; E87.5 Hyperkalemia; E86.0 Dehydration; E78.5 Hyperlipidemia, unspecified; M10.9 Gout, unspecified; E10.40 Type 1 diabetes mellitus with diabetic neuropathy, unspecified; E10.319 Type 1 diabetes mellitus with unspecified diabetic retinopathy without macular edema; E10.21 Type 1 diabetes mellitus with diabetic nephropathy; R94.31 Abnormal electrocardiogram [ECG] [EKG]; Z87.891 Personal history of nicotine dependence; R74.8 Abnormal levels of other serum enzymes; Z96.41 Presence of insulin pump (external) (internal); E10.22 Type 1 diabetes mellitus with diabetic chronic kidney disease; Z79.82 Long term (current) use of aspirin; Z99.2 Dependence on renal dialysis; Z91.19 Patient's noncompliance with other medical treatment and regimen
CPT/HCPCS: 36415; 71045; 72170; 80048; 80061; 82306; 82550; 82553; 82803; 82962; 83036; 83735; 84100; 84484; 85025; 86704; 86709; 86803; 87081; 87340; 90935; 93005; 93306; 94640; 94664; 96374; 96375; J1200; J1644; J1815; J2405; J3480; J7030; J7040; J7120